=== PATIENT | female | born 1965 | race Caucasian/White ===

== ENCOUNTER 2017-02-28 11:56 | Inpatient (IN) | payer SELFPAY ==
[2017-02-28] VITALS (12 sets, daily range): BP systolic 102–138; BP diastolic 61–90
[~2017-02-28] VITALS: Ht 160 cm; Wt 57.3 kg
[~2017-02-28 11:56] MED LIST: ALBU2.5V14 NEB; ALBU8.5H6 INH; ALPR1TAB6 PO; CYAN1TAB21 PO; FERR325T72 PO; FLUT1DIS3 IH; HYDR-2762 PO; IPRA4AER IH; LISI-334 PO; LORA2TAB PO; PANT40TA3 PO; PANT40TA5 PO; PROP20TA PO; SUCR1TAB35 PO; TRAM50TA PO
[2017-02-28] MEDS ORDERED: IV NORMAL SALINE 1000ML BAG 1,000 ML IV SCH (12:00)
[2017-02-28] MEDS ORDERED: EPINEPHrine 1 MG/ML VIAL IM ONE (12:00)
[2017-02-28] MEDS ORDERED: methylPREDNISolone SOD SUCC PF 125 MG/2 ML VIAL. IV ONE (12:15)
[2017-02-28] MEDS ORDERED: diphenhydrAMINE 50 MG/ML VIAL IV ONE (12:15)
[2017-02-28] MEDS ORDERED: FAMOTIDINE 20 MG/2 ML VIAL IVP ONE (12:15)
[2017-02-28] MEDS ORDERED: IPRATRPIUM/ALBUTEROL 0.5/2.5MG 3 ML NEBU. ONE (12:34)
--- NOTE | 2017-02-28 12:37 | EKG ---
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
--- NOTE | 2017-02-28 12:50 | PHYS DOC ---
Past Medical History Past Medical History: Anxiety, Asthma, Gallstones, GERD, Hypertension, Pancreatitis Past Surgical History: Colectomy, Additional Past Surgical Histo: Ablation Alcohol Use: Heavy Drug Use: None Adult General Chief Complaint Chief Complaint: ALLERGIC REACTION HPI HPI 89-year-old female presenting to the emergency department today with worsening shortness of breath after taking her 's Bactrim last night at 5 PM and again this morning at 7 AM. This morning she woke up and noticed that she had swelling and a rash around her neck and chest. She feels a chest pain that is sharp shooting pain. It is nonradiating intermittent and without alleviating factors. She denies abdominal pain nausea or vomiting. Review of systems is negative for fevers chills cough vision changes numbness weakness tingling diarrhea or constipation. All other review of systems is negative unless otherwise noted in history of present illness. ED course: 51-year-old female presenting to the emergency department today with worsening shortness of breath and rash after Bactrim. Patient was immediately roomed in our resuscitation bay and given intramuscular epinephrine along with IV steroids and histamine blockade. Pertinent physical exam findings show palpable subcutaneous emphysema with Alejandro's crunch on pressing the stethoscope into. Chest x-ray obtained which shows severe diffuse subcutaneous emphysema. I'm having a difficult time assessing the presence of a pneumothorax due to the obscuring subcutaneous emphysema. I discussed the case with our in- house radiologist at 1245 who agrees with the difficulty in interpreting this x- ray. The patient is saturating well and improved from the epinephrine. The patient appears to be stable to obtain a CT to identify the origin of this subcutaneous emphysema. The patient was placed on a nonrebreather after subcutaneous emphysema was noted. more for tx of presumed ptx than oxygen requirement. CT of the chest abdomen pelvis obtained which showed small bilateral pneumothoraces without obvious etiology with rib fracture on the left with pneumomediastinum. CT of the chest abdomen pelvis does not seem to indicate any acute surgical etiology of the patient's subcutaneous emphysema. I discussed the case with Dr. Cadena our film editor, Dr. Gutierrez our cardiothoracic surgeon and Dr. Omer our admitting hospitalist. Otherwise the patient a mildly hemolyzed specimen which showed a minimal increase in potassium likely her actual potassium is within normal limits given the hemolyzed speciman. Magnesium low. I ordered IV magnesium for the patient. He was then admitted to our ICU for further evaluation workup and care. Review of Systems Review of Systems SEE ABOVE. Current Medications Current Medications Current Medications Medications (Trade) Dose Ordered Sig/Servando Start Time Stop Time Status Last Admin Dose Admin Albuterol/ Ipratropium (Duoneb) 3 ml STK-MED ONCE 02/28/17 12:34 02/28/17 12:35 DC Diphenhydramine HCl (Benadryl) 50 mg 1X ONCE 02/28/17 12:15 02/28/17 12:16 DC 02/28/17 12:07 50 MG Epinephrine HCl (Adrenalin) 0.5 mg 1X ONCE 02/28/17 12:00 02/28/17 12:04 DC 02/28/17 12:03 0.5 MG Famotidine (Pepcid Vial) 20 mg 1X ONCE 02/28/17 12:15 02/28/17 12:16 DC 02/28/17 12:11 20 MG Methylprednisolone Sodium Succinate (SOLU-Medrol 125MG VIAL) 125 mg 1X ONCE 02/28/17 12:15 02/28/17 12:16 DC 02/28/17 12:08 125 MG Sodium Chloride 1,000 ml @ 1,000 mls/hr Q1H 02/28/17 12:00 02/28/17 12:59 DC 02/28/17 12:06 1,000 MLS/HR Allergies Allergies Allergies Coded Allergies Type Severity Reaction Last Updated Verified Monoamine Oxidase Inhibitors Allergy Severe Anaphylaxis 08/20/15 Yes Tricyclic Compounds Allergy Severe Anaphylaxis 08/20/15 Yes bupropion Allergy Severe Anaphylaxis 08/20/15 Yes paroxetine Allergy Severe Anaphylaxis 08/20/15 Yes sulfamethoxazole Allergy Severe Anaphylaxis 02/28/17 Yes trazodone Allergy Severe Anaphylaxis 08/20/15 Yes trimethoprim Allergy Severe Anaphylaxis 02/28/17 Yes venlafaxine HCl Allergy Severe Anaphylaxis 08/20/15 Yes Physical Exam Physical Exam SEE ABOVE Constitutional: Well developed, well nourished, pt has swollen face with a rash on the neck and chest that is uticarial in nature. HENT: Normocephalic, atraumatic, bilateral external ears normal, oropharynx moist, no oral exudates, nose normal. [] Eyes: PERRLA, EOMI, conjunctiva normal, no discharge. [] Neck: Normal range of motion, no tenderness, supple, no stridor. Cardiovascular:Heart rate regular rhythm, no murmur [] Lungs & Thorax: Patient has diffuse wheezing bilaterally with prolonged expiratory phase. Positive Alejandro's crunch. Diffuse subcutaneous emphysema palpable upon palpation of the chest wall. Abdomen: Bowel sounds normal, soft, no tenderness, no masses, no pulsatile masses. [] Skin: Warm, dry, no erythema, no rash. Back: No tenderness, no CVA tenderness. [] Extremities: No tenderness, no cyanosis, no clubbing, ROM intact, no edema. [] Neurologic: Alert and oriented X 3, normal motor function, normal sensory function, no focal deficits noted. Psychologic: Affect normal, judgement normal, mood normal. [] Current Patient Data Vital Signs Vital Signs Date Time Temp Pulse Resp B/P (MAP) Pulse Ox O2 Delivery O2 Flow Rate FiO2 02/28/17 13:37 70 16 143/70 (94) 100 02/28/17 12:43 Nasal Cannula 15.0 02/28/17 12:00 98.5 98.5 Lab Values Laboratory Tests Test 02/28/17 12:47 02/28/17 13:40 White Blood Count 10.6 x10^3/uL (4.0-11.0) Red Blood Count 3.91 x10^6/uL (3.50-5.40) Hemoglobin 13.3 g/dL (12.0-15.5) Hematocrit 40.5 % (36.0-47.0) Mean Corpuscular Volume 104 fL (79-100) H Mean Corpuscular Hemoglobin 34 pg (25-35) Mean Corpuscular Hemoglobin Concent 33 g/dL (31-37) Red Cell Distribution Width 16.1 % (11.5-14.5) H Platelet Count 237 x10^3/uL (140-400) Neutrophils (%) (Auto) 38 % (31-73) Lymphocytes (%) (Auto) 56 % (24-48) H Monocytes (%) (Auto) 4 % (0-9) Eosinophils (%) (Auto) 0 % (0-3) Basophils (%) (Auto) 2 % (0-3) Neutrophils # (Auto) 4.0 x10^3uL (1.8-7.7) Lymphocytes # (Auto) 6.0 x10^3/uL (1.0-4.8) H Monocytes # (Auto) 0.4 x10^3/uL (0.0-1.1) Eosinophils # (Auto) 0.0 x10^3/uL (0.0-0.7) Basophils # (Auto) 0.2 x10^3/uL (0.0-0.2) Sodium Level 127 mmol/L (136-145) L Potassium Level mmol/L (3.5-5.1) 5.1 mmol/L (3.5-5.1) Chloride Level 92 mmol/L (98-107) L Carbon Dioxide Level 22 mmol/L (21-32) Anion Gap 13 (6-14) Blood Urea Nitrogen 11 mg/dL (7-20) Creatinine 0.5 mg/dL (0.6-1.0) L Estimated GFR (Cockcroft-Gault) 131.1 Glucose Level 168 mg/dL (70-99) H Calcium Level 8.2 mg/dL (8.5-10.1) L Total Bilirubin 3.0 mg/dL (0.2-1.0) H Direct Bilirubin 0.8 mg/dL (0.0-0.2) H Aspartate Amino Transferase (AST) 217 U/L (15-37) H Alanine Aminotransferase (ALT) 100 U/L (14-59) H Alkaline Phosphatase 308 U/L (46-116) H Troponin I Quantitative < 0.017 ng/mL (0.000-0.055) Total Protein 7.0 g/dL (6.4-8.2) Albumin 3.0 g/dL (3.4-5.0) L Lipase 14 U/L (73-393) L Magnesium Level 1.3 mg/dL (1.8-2.4) L Laboratory Tests 02/28/17 12:47 Laboratory Tests 02/28/17 12:47 02/28/17 13:40 EKG EKG [] Radiology/Procedures Radiology/Procedures [] Course & Med Decision Making Course & Med Decision Making Pertinent Labs and Imaging studies reviewed. (See chart for details) [] Dragon Disclaimer Dragon Disclaimer This electronic medical record was generated, in whole or in part, using a voice recognition dictation system. Departure Departure Impression: Primary Impression: Pneumothorax Additional Impressions: Subcutaneous emphysema Anaphylactic reaction Disposition: ADMITTED INPATIENT Condition: IMPROVED Referrals: RAJAN REDD MD (PCP) Critical Care Time Critical care time was [45] minutes exclusive of procedures. Time was spent evaluating the patient, reviewing x-ray, reviewing lab work, ordering the administration of medications, discussing with the admitting provider and documenting. Problem Qualifiers PETE GODDARD MD Feb 28, 2017 12:50
--- NOTE | 2017-02-28 12:51 | RAD ---
EXAM: Chest, single view. HISTORY: Chest pain. COMPARISON: 08/23/2015. FINDINGS: A frontal view of the chest is obtained. There is extensive soft tissue emphysema throughout the chest, upper extremities and neck. There is lucency at the bilateral lung apices suggesting small pneumothoraces. There is also lucency along the mediastinal border may be due to pneumomediastinum. There is left perihilar opacity possibly due to partial left lung collapse. The heart is normal in size. IMPRESSION: 1. Extensive soft tissue emphysema throughout the thorax, upper extremities and neck. This is of uncertain etiology. CT may be useful for characterization. 2. Suggestion of tiny bilateral apical pneumothoraces and pneumomediastinum. 3. Left perihilar opacity possibly due to partial left lung collapse. There is no significant left hemithorax volume loss. These findings were discussed with Dr. Jarvis at 1245 hours on 02/28/2017.
[2017-02-28 12:59] LABS: BASO # 0.2 x10^3/uL (0.0-0.2); BASO % 2 % (0-3); EOS % 0 % (0-3); HEMATOCRIT 40.5 % (36.0-47.0); LYMPH % 56 % (24-48); MEAN CORPUSCULAR VOLUME 104 fL (79-100); MONO % 4 % (0-9); NEUT % 38 % (31-73); PLATELET COUNT 237 x10^3/uL (140-400); RED BLOOD COUNT 3.91 x10^6/uL (3.50-5.40); RED CELL DISTRIBUTION WIDTH 16.1 % (11.5-14.5); WHITE BLOOD COUNT 10.6 x10^3/uL (4.0-11.0)
[2017-02-28 13:24] LABS: ANION GAP 13 (6-14); BLOOD UREA NITROGEN 11 mg/dL (7-20); CARBON DIOXIDE 22 mmol/L (21-32); DIRECT BILIRUBIN 0.8 mg/dL (0.0-0.2); GFR 131.1
--- NOTE | 2017-02-28 13:27 | RAD ---
EXAM: Chest, abdomen and pelvis CT without intravenous contrast. HISTORY: Soft tissue emphysema. TECHNIQUE: Computed tomographic images of the chest, abdomen and pelvis were obtained without intravenous contrast. Multiplanar reformatting was performed. COMPARISON: 08/23/2015. FINDINGS: Chest: There is severe extensive soft tissue emphysema throughout the thorax and visualized portions of the neck and abdominal wall. There is extensive pneumomediastinum. There are tiny right and small left pneumothoraces. There is lingular and left paramediastinal partial upper lobe collapse. The heart is normal in size. No pathologically enlarged lymph node is seen. There is no pleural effusion. There is a minimally displaced lateral left fifth rib fracture. There are healing or healed left eighth and 10th rib fractures there is increased thoracic kyphosis and a minimal chronic appearing compression deformity of T8. Abdomen and pelvis: There is severe extensive soft tissue emphysema throughout the abdominal wall. There is hepatic steatosis. No focal hepatic lesion is seen. The gallbladder, pancreas, spleen, adrenal glands and kidneys are unremarkable. The urinary bladder is distended. There is evidence of prior partial bowel resection, with a surgical anastomosis within the left midabdomen. There is a prominent air and fluid-filled loop of small bowel within the upper mid abdomen extending to the level of the anastomosis. The uterus is enlarged and lobulated in configuration, likely due to multiple fibroids. There are bilateral ovarian cysts, measuring approximately 2.0 cm on the right and 1.9 cm on the left. There is lumbar hyperlordosis. No suspicious osseous lesion is seen. IMPRESSION: 1. Severe extensive soft tissue emphysema throughout the neck, chest and abdominal adair. 2. Tiny right and small left pneumothoraces and extensive pneumomediastinum. 3. Partial left upper lobe collapse. Follow-up to exclude a central obstructing lesion. 4. Hepatic steatosis. 5. Enlarged lobulated uterus likely due to fibroids. This can be better assessed with a pelvic sonogram. 6. Prominent air and fluid-filled proximal small bowel extending to a surgical anastomosis within the left upper abdomen. The possibility of a low grade obstruction is not completely excluded. There is no pneumatosis or pneumoperitoneum. 7. Minimally displaced lateral left fifth rib fracture and additional healing or healed rib fractures. PQRS Compliance Statement: One or more of the following individualized dose reduction techniques were utilized for this examination: 1. Automated exposure control 2. Adjustment of the mA and/or kV according to patient size 3. Use of iterative reconstruction technique
[2017-02-28 13:51] LABS: ALT (SGPT) 100 U/L (14-59); AST (SGOT) 217 U/L (15-37); CALCIUM 8.2 mg/dL (8.5-10.1)
[2017-02-28 13:52] LABS: CHLORIDE 92 mmol/L (98-107); CREATININE 0.5 mg/dL (0.6-1.0); GLUCOSE 168 mg/dL (70-99); HEMOGLOBIN 13.3 g/dL (12.0-15.5); MEAN CORPUSCULAR HEMOGLOBIN 34 pg (25-35); MEAN CORPUSCULAR HGB CONC 33 g/dL (31-37); SODIUM 127 mmol/L (136-145)
[2017-02-28 13:56] LABS: ALK PHOS 308 U/L (46-116)
[2017-02-28] MEDS ORDERED: MORPHINE SULFATE 2 MG/ML DISP.SYRIN. IV PRN (14:15)
[2017-02-28] MEDS ORDERED: ONDANSETRON PF 4 MG/2 ML VIAL. IV PRN ×2 (14:15→15:00)
[2017-02-28] MEDS ORDERED: MAGNESIUM SULFATE 2GM 50 ML IV ONE (15:00)
[2017-02-28] MEDS: IV NORMAL SALINE 1000ML BAG 1,000 ML IV SCH (15:00)
[2017-02-28] MEDS ORDERED: ACETAMINOPHEN 500 MG TABLET PO PRN (15:00)
[2017-02-28] MEDS: LISINOPRIL 20 MG TABLET PO SCH (15:30)
[2017-02-28] MEDS: PROPRANOLOL 10 MG TABLET. PO SCH ×2 (15:30→20:35)
[2017-02-28] MEDS ORDERED: IOHEXOL 300 MG/ML 50 ML VIAL. PO ONE (16:00)
[2017-02-28] MEDS ORDERED: CONTRAST GIVEN MC PRN (16:00)
--- NOTE | 2017-02-28 16:36 | RAD ---
EXAM: Water-soluble esophagram. HISTORY: Pneumomediastinum and extensive soft tissue emphysema. Clinical concern for esophageal tear. TECHNIQUE: Fluoroscopic imaging was performed in multiple positions and oblique of the sternum the oral administration of water-soluble contrast. 6 fluoroscopic spot images were obtained for a total procedure time of 0.6 minutes. COMPARISON: CT obtained earlier on the same date. FINDINGS: There is normal swallowing function, without evidence of aspiration or penetration. The esophagus is normal in caliber. No esophageal mucosal lesion is seen. There is no extravasation of contrast to suggest esophageal rupture. There is no diverticulum. There is no hiatal hernia. The stomach and proximal small bowel are unremarkable. There is extensive soft tissue emphysema throughout the chest, upper abdomen and neck and upper extremities. There is pneumomediastinum. There is partial collapse of the left upper lobe. There are tiny right and small left pneumothoraces. There is a minimally displaced left lateral fifth rib fracture. IMPRESSION: 1. No evidence of esophageal tear or alternative esophageal finding. 2. Extensive soft tissue gas, pneumomediastinum, and tiny right and small left pneumothoraces. This is further characterized on the CT obtained on the same date. 3. Minimally displaced lateral left fifth rib fracture.
--- NOTE | 2017-02-28 16:46 | PDOC ---
PULMONARY PROGRESS NOTES Vitals Vital Signs Date Time Temp Pulse Resp B/P (MAP) Pulse Ox O2 Delivery O2 Flow Rate FiO2 02/28/17 14:37 72 16 113/70 (84) 100 NonRebreather Mask 15.0 02/28/17 12:00 98.5 98.5 Lungs: Wheezing Cardiovascular: S1, S2 Labs Laboratory Tests Test 02/28/17 12:47 02/28/17 13:40 White Blood Count 10.6 x10^3/uL (4.0-11.0) Red Blood Count 3.91 x10^6/uL (3.50-5.40) Hemoglobin 13.3 g/dL (12.0-15.5) Hematocrit 40.5 % (36.0-47.0) Mean Corpuscular Volume 104 fL (79-100) Mean Corpuscular Hemoglobin 34 pg (25-35) Mean Corpuscular Hemoglobin Concent 33 g/dL (31-37) Red Cell Distribution Width 16.1 % (11.5-14.5) Platelet Count 237 x10^3/uL (140-400) Neutrophils (%) (Auto) 38 % (31-73) Lymphocytes (%) (Auto) 56 % (24-48) Monocytes (%) (Auto) 4 % (0-9) Eosinophils (%) (Auto) 0 % (0-3) Basophils (%) (Auto) 2 % (0-3) Neutrophils # (Auto) 4.0 x10^3uL (1.8-7.7) Lymphocytes # (Auto) 6.0 x10^3/uL (1.0-4.8) Monocytes # (Auto) 0.4 x10^3/uL (0.0-1.1) Eosinophils # (Auto) 0.0 x10^3/uL (0.0-0.7) Basophils # (Auto) 0.2 x10^3/uL (0.0-0.2) Sodium Level 127 mmol/L (136-145) Potassium Level mmol/L (3.5-5.1) 5.1 mmol/L (3.5-5.1) Chloride Level 92 mmol/L (98-107) Carbon Dioxide Level 22 mmol/L (21-32) Anion Gap 13 (6-14) Blood Urea Nitrogen 11 mg/dL (7-20) Creatinine 0.5 mg/dL (0.6-1.0) Estimated GFR (Cockcroft-Gault) 131.1 Glucose Level 168 mg/dL (70-99) Calcium Level 8.2 mg/dL (8.5-10.1) Total Bilirubin 3.0 mg/dL (0.2-1.0) Direct Bilirubin 0.8 mg/dL (0.0-0.2) Aspartate Amino Transf (AST/SGOT) 217 U/L (15-37) Alanine Aminotransferase (ALT/SGPT) 100 U/L (14-59) Alkaline Phosphatase 308 U/L (46-116) Troponin I Quantitative < 0.017 ng/mL (0.000-0.055) Total Protein 7.0 g/dL (6.4-8.2) Albumin 3.0 g/dL (3.4-5.0) Lipase 14 U/L (73-393) Magnesium Level 1.3 mg/dL (1.8-2.4) Laboratory Tests Test 02/28/17 12:47 02/28/17 13:40 White Blood Count 10.6 x10^3/uL (4.0-11.0) Red Blood Count 3.91 x10^6/uL (3.50-5.40) Hemoglobin 13.3 g/dL (12.0-15.5) Hematocrit 40.5 % (36.0-47.0) Mean Corpuscular Volume 104 fL (79-100) Mean Corpuscular Hemoglobin 34 pg (25-35) Mean Corpuscular Hemoglobin Concent 33 g/dL (31-37) Red Cell Distribution Width 16.1 % (11.5-14.5) Platelet Count 237 x10^3/uL (140-400) Neutrophils (%) (Auto) 38 % (31-73) Lymphocytes (%) (Auto) 56 % (24-48) Monocytes (%) (Auto) 4 % (0-9) Eosinophils (%) (Auto) 0 % (0-3) Basophils (%) (Auto) 2 % (0-3) Neutrophils # (Auto) 4.0 x10^3uL (1.8-7.7) Lymphocytes # (Auto) 6.0 x10^3/uL (1.0-4.8) Monocytes # (Auto) 0.4 x10^3/uL (0.0-1.1) Eosinophils # (Auto) 0.0 x10^3/uL (0.0-0.7) Basophils # (Auto) 0.2 x10^3/uL (0.0-0.2) Sodium Level 127 mmol/L (136-145) Potassium Level mmol/L (3.5-5.1) 5.1 mmol/L (3.5-5.1) Chloride Level 92 mmol/L (98-107) Carbon Dioxide Level 22 mmol/L (21-32) Anion Gap 13 (6-14) Blood Urea Nitrogen 11 mg/dL (7-20) Creatinine 0.5 mg/dL (0.6-1.0) Estimated GFR (Cockcroft-Gault) 131.1 Glucose Level 168 mg/dL (70-99) Calcium Level 8.2 mg/dL (8.5-10.1) Total Bilirubin 3.0 mg/dL (0.2-1.0) Direct Bilirubin 0.8 mg/dL (0.0-0.2) Aspartate Amino Transf (AST/SGOT) 217 U/L (15-37) Alanine Aminotransferase (ALT/SGPT) 100 U/L (14-59) Alkaline Phosphatase 308 U/L (46-116) Troponin I Quantitative < 0.017 ng/mL (0.000-0.055) Total Protein 7.0 g/dL (6.4-8.2) Albumin 3.0 g/dL (3.4-5.0) Lipase 14 U/L (73-393) Magnesium Level 1.3 mg/dL (1.8-2.4) Medications Active Scripts Medications Dose Route/Sig Max Daily Dose Days Date Category Dose Instructions Pantoprazole Sodium 40 Mg Tablet.dr 40 Mg PO BIDAC 08/25/15 Rx Feosol (Ferrous Sulfate) 325 Mg Tablet 325 Mg PO [id number] 08/25/15 Rx Carafate (Sucralfate) 1 Gm Tablet 1 Tab PO QID 08/20/15 Rx Tramadol Hcl 50 Mg Tablet 50 Mg PO PRN Q6HRS PRN 07/03/15 Reported Lorazepam 2 Mg Tablet 2-4 Mg PO PRN BID PRN 07/03/15 Reported ALTERNATE WITH ALPRAZOLAM B Complex-Folic Acid Tablet (Cyanocobalamin/Fa/Pyridoxine) 1 Each Tablet 1 Each PO DAILY 04/05/15 Rx Alprazolam 1 Mg Tablet 1 Mg PO PRN BID PRN 05/01/13 Reported ALTERNATE WITH LORAZEPAM Propranolol Hcl 20 Mg Tablet 20 Mg PO TID 05/01/13 Reported Lisinopril 20 Mg Tablet 20 Mg PO DAILY 05/01/13 Reported Impression . FULL NOTE DICTATED ACUTE PTX SUSPECT SEC TO EMPHYSEMA AND COUGHING ABNORMAL CT OF CHEST WILL NEED A [facility] NPO [place] PNEUMOMEDIASTINUM SEE ORDERS D/W DR NEGRETE NO INTERVETION FOR NOW REGI JON MD Feb 28, 2017 16:46
--- NOTE | 2017-02-28 16:55 | PDOC1 ---
History and Physical Date of Admission Date of Admission DATE: 02/28/17 TIME: 16:45 Identification/Chief Complaint Chief Complaint face swelling and wheezy Problems: Source Source: Caregiver, Chart review, Patient History of Present Illness History of Present Illness 51 y.o obese female hx of signif etoh consumption, hx of past admits for pancreatitis, comes in bec of face swelling, more noticeable in the left eye and wheezy and SOA after taking bactrim form her 's meds for URI sxs. then noticed today the above CC hence brought to ER. AT ER received solu, epi IM etc for anaphylaxis but on further PE was found to have subQ tissue edema almost everywhere, So CXR done showed subQ emphysema in chest , neck ,face etc and some small 1-2 % apical pneumothoraces - all news to pt, She denies heavy smoking, HEmodynamically stable, sats ok, feels hungry and wants to eat, Pulmo and cards have been both consulted, conservative mx for now, ICU monitor and possibly daily CXR,. Dw ., and pt now admits to falling yesterday, hitting her left side and she has a bruise there, she was trying to get her dinner tray and was caught in between furniture, She has left rib fx 5th rib and some old healed rib fxs which she was not aware of, She does admit to falls in past, Past Medical History Cardiovascular: HTN Pulmonary: Asthma Psych: Anxiety, Addictions Past Surgical History Past Surgical History: , Colon Resection, Other Family History Family History: Asthma, Cancer, Hypertension, Other Social History Smoke: <1 pack per day ALCOHOL: heavy Drugs: None Current Medications Current Medications Current Medications Methylprednisolone Sodium Succinate (SOLU-Medrol 125MG VIAL) 125 mg 1X ONCE IV Last administered on 02/28/17 12:08; Start 02/28/17 at 12:15; Stop at 12:16; Status DC Diphenhydramine HCl (Benadryl) 50 mg 1X ONCE IV Last administered on 12:07; Start 02/28/17 at 12:15; Stop 02/28/17 at 12:16; Status DC Famotidine (Pepcid Vial) 20 mg 1X ONCE IVP Last administered on 02/28/17 12: 11; Start 02/28/17 at 12:15; Stop 02/28/17 at 12:16; Status DC Epinephrine HCl (Adrenalin) 0.5 mg 1X ONCE IM Last administered on 02/28/17 12:03; Start 02/28/17 at 12:00; Stop 02/28/17 at 12:04; Status DC Sodium Chloride 1,000 ml @ 1,000 mls/hr Q1H IV Last administered on 12:06; Start 02/28/17 at 12:00; Stop 02/28/17 at 12:59; Status DC Albuterol/ Ipratropium (Duoneb) 3 ml STK-MED ONCE .ROUTE ; Start 02/28/17 at 12 :34; Stop 02/28/17 at 12:35; Status DC Ondansetron HCl (Zofran) 4 mg PRN Q8HRS PRN IV NAUSEA/VOMITING; Start at 14:15; Stop 02/28/17 at 15:01; Status DC Morphine Sulfate 2 mg PRN Q2HR PRN IV PAIN; Start 02/28/17 at 14:15; Stop at 14:14 Sodium Chloride 1,000 ml @ 100 mls/hr Q10H IV ; Start 02/28/17 at 15:00; Stop 03/01/17 at 14:59 Magnesium Sulfate/ Dextrose 50 ml @ 10 mls/hr 1X ONCE IV ; Start 02/28/17 at 15:00; Stop 02/28/17 at 19:59 Ondansetron HCl (Zofran) 4 mg PRN Q6HRS PRN IV NAUSEA/VOMITING; Start at 15:00; Stop 03/01/17 at 14:59 Acetaminophen (Tylenol) 500 mg PRN Q6HRS PRN PO MILD PAIN / TEMP; Start at 15:00 Alprazolam (Xanax) 1 mg PRN BID PRN PO ANXIETY; Start 02/28/17 at 15:00 Ferrous Sulfate (Feosol) 325 mg DAILYWBKFT PO ; Start 03/01/17 at 08:00 Lisinopril (Prinivil) 20 mg DAILY PO ; Start 02/28/17 at 15:30 Pantoprazole Sodium (Protonix) 40 mg BIDAC PO ; Start 02/28/17 at 16:30 Sucralfate (Carafate) 1 gm QIDACHS PO ; Start 02/28/17 at 16:30 Tramadol HCl (Ultram) 50 mg PRN Q6HRS PRN PO HEADACHE; Start 02/28/17 at 15:00 Vitamin B Complex (Tyrell B) 1 tab DAILY PO ; Start 03/01/17 at 09:00 Lorazepam (Ativan) 2 mg PRN BID PRN PO ANXIETY; Start 02/28/17 at 15:15 Propranolol HCl (Inderal) 20 mg TID PO ; Start 02/28/17 at 15:30 Iohexol (Omnipaque 300 Mg/ml) 100 ml 1X ONCE PO Last administered on t 16:19; Start 02/28/17 at 16:00; Stop 02/28/17 at 16:01; Status DC Info (Do NOT chart on this entry -- for MONITORING) 1 each PRN DAILY PRN MC SEE COMMENTS; Start 02/28/17 at 16:00; Stop 03/02/17 at 15:59 Methylprednisolone Sodium Succinate (SOLU-Medrol 125MG VIAL) 125 mg DAILY IV ; Start 03/01/17 at 09:00 Doxycycline Hyclate (Vibra-Tab) 100 mg BID PO ; Start 02/28/17 at 17:00 Active Scripts Active Pantoprazole Sodium 40 Mg Tablet.dr 40 Mg PO BIDAC Feosol (Ferrous Sulfate) 325 Mg Tablet 325 Mg PO DAILYWBKFT Carafate (Sucralfate) 1 Gm Tablet 1 Tab PO QID B Complex-Folic Acid Tablet (Cyanocobalamin/Fa/Pyridoxine) 1 Each Tablet 1 Each PO DAILY Reported Tramadol Hcl 50 Mg Tablet 50 Mg PO PRN Q6HRS PRN Lorazepam 2 Mg Tablet 2-4 Mg PO PRN BID PRN ALTERNATE WITH ALPRAZOLAM Alprazolam 1 Mg Tablet 1 Mg PO PRN BID PRN ALTERNATE WITH LORAZEPAM Propranolol Hcl 20 Mg Tablet 20 Mg PO TID Lisinopril 20 Mg Tablet 20 Mg PO DAILY Allergies Allergies: Coded Allergies: Monoamine Oxidase Inhibitors (Verified Allergy, Severe, Anaphylaxis, ) ALL ANTIDEPRESSANTS Tricyclic Compounds (Verified Allergy, Severe, Anaphylaxis, 08/20/15) ALL ANTIDEPRESSANTS bupropion (Verified Allergy, Severe, Anaphylaxis, 08/20/15) ALL ANTIDEPRESSANTS paroxetine (Verified Allergy, Severe, Anaphylaxis, 08/20/15) ALL ANTIDEPRESSANTS sulfamethoxazole (Verified Allergy, Severe, Anaphylaxis, 02/28/17) trazodone (Verified Allergy, Severe, Anaphylaxis, 08/20/15) ALL ANTIDEPRESSANTS trimethoprim (Verified Allergy, Severe, Anaphylaxis, 02/28/17) venlafaxine HCl (Verified Allergy, Severe, Anaphylaxis, 08/20/15) ALL ANTIDEPRESSANTS ROS Review of System as per HPI, all else is neg, SOme soa, CP,no abd pain, change in BM, 14 pt reviewed Physical Exam General: Alert, Oriented X3, Cooperative, Other (swollen left eye, sub Q emphysema palpable and appreciable on PE on anterior chest, neck , arms and hands, bruise on left side rib) HEENT: EOMI Lungs: Normal air movement, Other (no wheezes, normal air entry) Heart: S1S2, RRR, no thrills, no rubs Cardiovascular: S1, S2 Abdomen: Normal bowel sounds, Soft, No tenderness, No hepatosplenomegaly, No masses Rectal Exam: not examined PELVIC: Nml ext genitalia Extremities: Other (palpable subQ emphysema) Skin: No rashes, No breakdown, No significant lesion Neuro: Normal gait, Normal speech, Strength at 5/5 X4 ext, Normal tone, Sensation intact, Cranial nerves 3-12 NL, Reflexes 2+ Psych/Mental Status: Mental status NL, Mood NL Vitals Vitals Vital Signs Date Time Temp Pulse Resp B/P (MAP) Pulse Ox O2 Delivery O2 Flow Rate FiO2 02/28/17 14:37 72 16 113/70 (84) 100 NonRebreather Mask 15.0 02/28/17 12:00 98.5 98.5 Labs Labs Laboratory Tests Test 02/28/17 12:47 02/28/17 13:40 White Blood Count 10.6 x10^3/uL (4.0-11.0) Red Blood Count 3.91 x10^6/uL (3.50-5.40) Hemoglobin 13.3 g/dL (12.0-15.5) Hematocrit 40.5 % (36.0-47.0) Mean Corpuscular Volume 104 fL (79-100) Mean Corpuscular Hemoglobin 34 pg (25-35) Mean Corpuscular Hemoglobin Concent 33 g/dL (31-37) Red Cell Distribution Width 16.1 % (11.5-14.5) Platelet Count 237 x10^3/uL (140-400) Neutrophils (%) (Auto) 38 % (31-73) Lymphocytes (%) (Auto) 56 % (24-48) Monocytes (%) (Auto) 4 % (0-9) Eosinophils (%) (Auto) 0 % (0-3) Basophils (%) (Auto) 2 % (0-3) Neutrophils # (Auto) 4.0 x10^3uL (1.8-7.7) Lymphocytes # (Auto) 6.0 x10^3/uL (1.0-4.8) Monocytes # (Auto) 0.4 x10^3/uL (0.0-1.1) Eosinophils # (Auto) 0.0 x10^3/uL (0.0-0.7) Basophils # (Auto) 0.2 x10^3/uL (0.0-0.2) Sodium Level 127 mmol/L (136-145) Potassium Level mmol/L (3.5-5.1) 5.1 mmol/L (3.5-5.1) Chloride Level 92 mmol/L (98-107) Carbon Dioxide Level 22 mmol/L (21-32) Anion Gap 13 (6-14) Blood Urea Nitrogen 11 mg/dL (7-20) Creatinine 0.5 mg/dL (0.6-1.0) Estimated GFR (Cockcroft-Gault) 131.1 Glucose Level 168 mg/dL (70-99) Calcium Level 8.2 mg/dL (8.5-10.1) Total Bilirubin 3.0 mg/dL (0.2-1.0) Direct Bilirubin 0.8 mg/dL (0.0-0.2) Aspartate Amino Transf (AST/SGOT) 217 U/L (15-37) Alanine Aminotransferase (ALT/SGPT) 100 U/L (14-59) Alkaline Phosphatase 308 U/L (46-116) Troponin I Quantitative < 0.017 ng/mL (0.000-0.055) Total Protein 7.0 g/dL (6.4-8.2) Albumin 3.0 g/dL (3.4-5.0) Lipase 14 U/L (73-393) Magnesium Level 1.3 mg/dL (1.8-2.4) Laboratory Tests Test 02/28/17 12:47 02/28/17 13:40 White Blood Count 10.6 x10^3/uL (4.0-11.0) Red Blood Count 3.91 x10^6/uL (3.50-5.40) Hemoglobin 13.3 g/dL (12.0-15.5) Hematocrit 40.5 % (36.0-47.0) Mean Corpuscular Volume 104 fL (79-100) Mean Corpuscular Hemoglobin 34 pg (25-35) Mean Corpuscular Hemoglobin Concent 33 g/dL (31-37) Red Cell Distribution Width 16.1 % (11.5-14.5) Platelet Count 237 x10^3/uL (140-400) Neutrophils (%) (Auto) 38 % (31-73) Lymphocytes (%) (Auto) 56 % (24-48) Monocytes (%) (Auto) 4 % (0-9) Eosinophils (%) (Auto) 0 % (0-3) Basophils (%) (Auto) 2 % (0-3) Neutrophils # (Auto) 4.0 x10^3uL (1.8-7.7) Lymphocytes # (Auto) 6.0 x10^3/uL (1.0-4.8) Monocytes # (Auto) 0.4 x10^3/uL (0.0-1.1) Eosinophils # (Auto) 0.0 x10^3/uL (0.0-0.7) Basophils # (Auto) 0.2 x10^3/uL (0.0-0.2) Sodium Level 127 mmol/L (136-145) Potassium Level mmol/L (3.5-5.1) 5.1 mmol/L (3.5-5.1) Chloride Level 92 mmol/L (98-107) Carbon Dioxide Level 22 mmol/L (21-32) Anion Gap 13 (6-14) Blood Urea Nitrogen 11 mg/dL (7-20) Creatinine 0.5 mg/dL (0.6-1.0) Estimated GFR (Cockcroft-Gault) 131.1 Glucose Level 168 mg/dL (70-99) Calcium Level 8.2 mg/dL (8.5-10.1) Total Bilirubin 3.0 mg/dL (0.2-1.0) Direct Bilirubin 0.8 mg/dL (0.0-0.2) Aspartate Amino Transf (AST/SGOT) 217 U/L (15-37) Alanine Aminotransferase (ALT/SGPT) 100 U/L (14-59) Alkaline Phosphatase 308 U/L (46-116) Troponin I Quantitative < 0.017 ng/mL (0.000-0.055) Total Protein 7.0 g/dL (6.4-8.2) Albumin 3.0 g/dL (3.4-5.0) Lipase 14 U/L (73-393) Magnesium Level 1.3 mg/dL (1.8-2.4) VTE Prophylaxis Ordered VTE Prophylaxis Devices: Yes VTE Pharmacological Prophylaxi: Yes Assessment/Plan Assessment/Plan 1. SMall apical pneumothoraces, 1-2 % - conservative mx for now 2. LEft 5th rib fx, acute; old healed rib fxs 3. Fall 4. Obesity 5. SMOker, heavy drinker, hx of pancreatitis - lipase normal this admit, no abd pain 6. SUbQ emphysema neck, face, arms 7. HYponatremia - 127 8. Anaphylaxis likely to bactrim - list bactrtim as allergy pls PLAn: Admit ICU Pulmo and TCVS consult Ok for diet PT/OT when more stable O2 support CXR again for the PTx HIgh fall risk Await home meds CIWA NIcotine prn NS for hyponat Check meds, check TSH BMP tmr Seen in ER Dw ER NATHEN Chao dr, MD Feb 28, 2017 16:55
[2017-02-28] MEDS ORDERED: NICOTINE 21MG PATCH. TD PRN (17:00)
[2017-02-28] MEDS: DOXYCYCLINE HYCLATE 100 MG TABLET PO SCH (17:51)
[2017-02-28] MEDS: FOLIC ACID 1 MG TABLET. PO SCH (17:51)
[2017-02-28] MEDS: PRENATAL MULTIVITAMIN TABLET. PO SCH (17:51)
[2017-02-28] MEDS: THIAMINE 100 MG TABLET. PO SCH (17:51)
[2017-02-28] MEDS: PANTOPRAZOLE 40 MG TABLET.DR. PO SCH (17:51)
[2017-02-28] MEDS: SUCRALFATE 1 GM TABLET. PO SCH ×2 (17:51→20:35)
[2017-02-28] MEDS ORDERED: IPRATROPIUM BROMIDE 0.5 MG/2.5 ML NEBU. NEB PRN (19:15)
[2017-02-28] MEDS: IPRATROPIUM BROMIDE 0.5 MG/2.5 ML NEBU. NEB SCH ×2 (19:39→23:56)
[2017-02-28] MEDS: ALPRAZolam 1 MG TABLET PO PRN (20:36)
[2017-02-28] MEDS: traMADol 50 MG TABLET PO PRN (20:36)
[2017-02-28] MEDS: MORPHINE SULFATE 4 MG/ML DISP.SYRIN. IV PRN (23:21)
[2017-03-01] VITALS (24 sets, daily range): BP systolic 83–134; BP diastolic 56–85
--- NOTE | 2017-03-01 02:43 | CONS ---
DATE OF CONSULTATION: 02/28/2017 ATTENDING PHYSICIAN: Dr. Omer REASON FOR CONSULTATION: The patient is seen in pulmonary consultation at the request of Dr. Omer for pneumomediastinum. HISTORY OF PRESENT ILLNESS: The patient is a 51-year-old that has been having some issues with increasing shortness of breath and cough. She presented today because she felt like she was having an allergic reaction. Her eyes were swollen and her face was swollen along with possible rash. The patient was evaluated in the Emergency Department and underwent physical examination, which revealed some subcutaneous emphysema. As a consequence of that, a chest x-ray was obtained in addition to the CT of the chest. CT revealed pneumomediastinum, significant subcutaneous emphysema and small pneumothoraces. I was asked to see the patient for further evaluation and management. The patient denies fever, chills or night sweats. She was taking some Bactrim at home for acute bronchitis. PAST MEDICAL HISTORY: 1. COPD undocumented, no history of asthma prior to smoking. He has been smoking for 30 years: 2. Anxiety. 3. Cholecystectomy 4. Chronic pancreatitis. 5. Hypertension. 5. Gastroesophageal reflux. PAST SURGICAL HISTORY: Status post colectomy and . SOCIAL HISTORY: She is a heavy alcohol user along with tobacco. PHYSICAL EXAMINATION: VITAL SIGNS: Stable. O2 saturation was greater than 92%. HEENT: Eyes, the left eye was almost completely shut from the subcutaneous emphysema. NECK: Otherwise, jugular venous distention could not be assessed. There was a large amount of subcutaneous emphysema. CHEST: Subcutaneous emphysema. LUNGS: Adequate airway flow, no wheezes. CARDIOVASCULAR: Regular rate and rhythm with S1, S2, no S3. ABDOMEN: Soft, nontender and nondistended. EXTREMITIES: No clubbing, cyanosis or pitting edema. NEUROLOGIC: The patient was awake, alert and following commands. A detailed neuro exam was not performed. LABORATORY DATA: Reviewed. IMAGING: CT of the chest was likewise reviewed. CT chest, abdomen and pelvis was reviewed. IMPRESSION: 1. Spontaneous pneumothoraces suspect secondary to forceful cough and Valsalva with possible underlying emphysema. 2. Left upper lobe collapse, possible central obstruction. 3. Severe extensive subcutaneous emphysema. 4. Pneumomediastinum. 5. Acute exacerbation of chronic obstructive pulmonary disease. 6. Paroxysmal coughing spells. 7. Hyponatremia. 8. Elevated liver chemistries secondary to alcoholism. 9. Mild to moderate protein deficiency, protein malnutrition. PLAN: 1. Case discussed with radiologist. We will proceed with esophagram with water soluble contrast to rule out the possibility of TE fistula. We will need bronchoscopy to assess the airways. 2. Case discussed with cardiothoracic surgeon for standby surgical intervention, at this point, the patient is stable and no surgical intervention is necessary. 3. Consult dietary. 4. Monitor liver chemistries. 5. The patient instructed on the importance of discontinuing tobacco use. 6. Nebulized treatments. 7. Antibiotics. 8. Solu-Medrol. I do appreciate the privilege in sharing in the patient's care. REGI JON MD DR: JONATHAN/briana JOB#: [id number] / [id number]
[2017-03-01] MEDS: MORPHINE SULFATE 4 MG/ML DISP.SYRIN. IV PRN ×2 (03:34→06:05)
[2017-03-01] MEDS: IV NORMAL SALINE 1000ML BAG 1,000 ML IV SCH ×2 (06:06→19:44)
[2017-03-01] MEDS: VITAMIN B COMPLEX TABLET. PO SCH (08:11)
[2017-03-01] MEDS: DOXYCYCLINE HYCLATE 100 MG TABLET PO SCH ×2 (08:11→22:18)
[2017-03-01] MEDS: PROPRANOLOL 10 MG TABLET. PO SCH ×3 (08:11→22:18)
[2017-03-01] MEDS: FERROUS SULFATE 325 MG TABLET. PO SCH (08:12)
[2017-03-01] MEDS: FOLIC ACID 1 MG TABLET. PO SCH (08:12)
[2017-03-01] MEDS: LISINOPRIL 20 MG TABLET PO SCH (08:12)
[2017-03-01] MEDS: PANTOPRAZOLE 40 MG TABLET.DR. PO SCH ×2 (08:12→17:31)
[2017-03-01] MEDS: THIAMINE 100 MG TABLET. PO SCH (08:12)
[2017-03-01] MEDS: SUCRALFATE 1 GM TABLET. PO SCH ×4 (08:13→22:17)
[2017-03-01] MEDS: LORazepam 1 MG TABLET PO PRN (08:13)
[2017-03-01] MEDS: PRENATAL MULTIVITAMIN TABLET. PO SCH (08:13)
[2017-03-01 08:18] LABS: BASO # 0.1 x10^3/uL (0.0-0.2); BASO % 2 % (0-3); EOS % 1 % (0-3); HEMOGLOBIN 12.5 g/dL (12.0-15.5); LYMPH # 3.1 x10^3/uL (1.0-4.8); MEAN CORPUSCULAR HEMOGLOBIN 35 pg (25-35); MEAN CORPUSCULAR HGB CONC 34 g/dL (31-37); MEAN CORPUSCULAR VOLUME 103 fL (79-100); PLATELET COUNT 86 x10^3/uL (140-400); RED CELL DISTRIBUTION WIDTH 15.8 % (11.5-14.5); WHITE BLOOD COUNT 6.5 x10^3/uL (4.0-11.0)
[2017-03-01 08:25] LABS: CALCIUM 8.2 mg/dL (8.5-10.1); CREATININE 0.5 mg/dL (0.6-1.0); GFR 131.1; POTASSIUM 3.6 mmol/L (3.5-5.1)
[2017-03-01] MEDS ORDERED: methylPREDNISolone SOD SUCC PF 125 MG/2 ML VIAL. IV SCH ×2 (09:00→21:00)
[2017-03-01] MEDS ORDERED: BUDESONIDE 0.5 MG/2 ML NEBU. NEB ONE (09:30)
[2017-03-01] MEDS ORDERED: fentaNYL PF VIAL 100 MCG/2 ML VIAL IV PRN (09:45)
[2017-03-01] MEDS ORDERED: diphenhydrAMINE 50 MG/ML VIAL IVP ONE (09:45)
[2017-03-01] MEDS ORDERED: diphenhydrAMINE 50 MG/ML VIAL IVP PRN (09:45)
--- NOTE | 2017-03-01 09:47 | PDOC ---
PROGRESS NOTES Chief Complaint Chief Complaint angioedema, acute facial swelling, allergic reaction Small apical pneumothoraces, 1-2 % - conservative mx for now Left 5th rib fx, acute; s/p fall Obesity tobacco use disorder edema of neck, face, arms Hyponatremia - 127 Anaphylaxis likely to bactrim - transaminitis, check hep panel in AM History of Present Illness History of Present Illness Admitted ICU, able to swallow, tongue is small, face is markedly swollen Pulmo and TCVS consult Ok for diet PT/OT unable, she cannot see today t CIWA prn Nicotine prn Vitals Vitals Vital Signs Date Time Temp Pulse Resp B/P (MAP) Pulse Ox O2 Delivery O2 Flow Rate FiO2 03/01/17 08:24 93 Room Air 03/01/17 08:12 76 110/76 03/01/17 06:38 16 03/01/17 04:00 98.3 98.3 03/01/17 02:00 2.0 Physical Exam General: Alert, Oriented X3, Cooperative, mild distress (pain, swelling), Other (swollen left eye, sub Q emphysema palpable and appreciable on PE on anterior chest, neck , arms and hands, bruise on left side rib) Heart: Regular rate, No murmurs Lungs: Wheezing Abdomen: Normal bowel sounds, Soft, No tenderness, No hepatosplenomegaly, No masses Extremities: Other (palpable subQ emphysema) Skin: No rashes, No breakdown, No significant lesion Labs LABS Laboratory Tests Test 02/28/17 12:47 02/28/17 13:40 03/01/17 07:11 White Blood Count 10.6 x10^3/uL (4.0-11.0) Red Blood Count 3.91 x10^6/uL (3.50-5.40) Hemoglobin 13.3 g/dL (12.0-15.5) Hematocrit 40.5 % (36.0-47.0) Mean Corpuscular Volume 104 fL (79-100) Mean Corpuscular Hemoglobin 34 pg (25-35) Mean Corpuscular Hemoglobin Concent 33 g/dL (31-37) Red Cell Distribution Width 16.1 % (11.5-14.5) Platelet Count 237 x10^3/uL (140-400) Neutrophils (%) (Auto) 38 % (31-73) Lymphocytes (%) (Auto) 56 % (24-48) Monocytes (%) (Auto) 4 % (0-9) Eosinophils (%) (Auto) 0 % (0-3) Basophils (%) (Auto) 2 % (0-3) Neutrophils # (Auto) 4.0 x10^3uL (1.8-7.7) Lymphocytes # (Auto) 6.0 x10^3/uL (1.0-4.8) Monocytes # (Auto) 0.4 x10^3/uL (0.0-1.1) Eosinophils # (Auto) 0.0 x10^3/uL (0.0-0.7) Basophils # (Auto) 0.2 x10^3/uL (0.0-0.2) Sodium Level 127 mmol/L (136-145) 138 mmol/L (136-145) Potassium Level mmol/L (3.5-5.1) 5.1 mmol/L (3.5-5.1) 3.6 mmol/L (3.5-5.1) Chloride Level 92 mmol/L (98-107) 103 mmol/L (98-107) Carbon Dioxide Level 22 mmol/L (21-32) 26 mmol/L (21-32) Anion Gap 13 (6-14) 9 (6-14) Blood Urea Nitrogen 11 mg/dL (7-20) 6 mg/dL (7-20) Creatinine 0.5 mg/dL (0.6-1.0) 0.5 mg/dL (0.6-1.0) Estimated GFR (Cockcroft-Gault) 131.1 131.1 Glucose Level 168 mg/dL (70-99) 165 mg/dL (70-99) Calcium Level 8.2 mg/dL (8.5-10.1) 8.2 mg/dL (8.5-10.1) Total Bilirubin 3.0 mg/dL (0.2-1.0) Direct Bilirubin 0.8 mg/dL (0.0-0.2) Aspartate Amino Transf (AST/SGOT) 217 U/L (15-37) Alanine Aminotransferase (ALT/SGPT) 100 U/L (14-59) Alkaline Phosphatase 308 U/L (46-116) Troponin I Quantitative < 0.017 ng/mL (0.000-0.055) Total Protein 7.0 g/dL (6.4-8.2) Albumin 3.0 g/dL (3.4-5.0) Lipase 14 U/L (73-393) Magnesium Level 1.3 mg/dL (1.8-2.4) Thyroid Stimulating Hormone (TSH) 6.113 uIU/mL (0.358-3.74) Review of Systems Review of Systems arm pain, back pain, face pain cannot see, eyes are too swollen Assessment and Plan Assessmemt and Plan Problems Medical Problems: (1) Anaphylactic reaction Status: Acute (2) Subcutaneous emphysema Status: Acute Problems: Comment Review of Relevant I have reviewed the following items yu (where applicable) has been applied. Labs Laboratory Tests Test 02/28/17 12:47 02/28/17 13:40 03/01/17 07:11 White Blood Count 10.6 x10^3/uL (4.0-11.0) Red Blood Count 3.91 x10^6/uL (3.50-5.40) Hemoglobin 13.3 g/dL (12.0-15.5) Hematocrit 40.5 % (36.0-47.0) Mean Corpuscular Volume 104 fL (79-100) Mean Corpuscular Hemoglobin 34 pg (25-35) Mean Corpuscular Hemoglobin Concent 33 g/dL (31-37) Red Cell Distribution Width 16.1 % (11.5-14.5) Platelet Count 237 x10^3/uL (140-400) Neutrophils (%) (Auto) 38 % (31-73) Lymphocytes (%) (Auto) 56 % (24-48) Monocytes (%) (Auto) 4 % (0-9) Eosinophils (%) (Auto) 0 % (0-3) Basophils (%) (Auto) 2 % (0-3) Neutrophils # (Auto) 4.0 x10^3uL (1.8-7.7) Lymphocytes # (Auto) 6.0 x10^3/uL (1.0-4.8) Monocytes # (Auto) 0.4 x10^3/uL (0.0-1.1) Eosinophils # (Auto) 0.0 x10^3/uL (0.0-0.7) Basophils # (Auto) 0.2 x10^3/uL (0.0-0.2) Sodium Level 127 mmol/L (136-145) 138 mmol/L (136-145) Potassium Level mmol/L (3.5-5.1) 5.1 mmol/L (3.5-5.1) 3.6 mmol/L (3.5-5.1) Chloride Level 92 mmol/L (98-107) 103 mmol/L (98-107) Carbon Dioxide Level 22 mmol/L (21-32) 26 mmol/L (21-32) Anion Gap 13 (6-14) 9 (6-14) Blood Urea Nitrogen 11 mg/dL (7-20) 6 mg/dL (7-20) Creatinine 0.5 mg/dL (0.6-1.0) 0.5 mg/dL (0.6-1.0) Estimated GFR (Cockcroft-Gault) 131.1 131.1 Glucose Level 168 mg/dL (70-99) 165 mg/dL (70-99) Calcium Level 8.2 mg/dL (8.5-10.1) 8.2 mg/dL (8.5-10.1) Total Bilirubin 3.0 mg/dL (0.2-1.0) Direct Bilirubin 0.8 mg/dL (0.0-0.2) Aspartate Amino Transf (AST/SGOT) 217 U/L (15-37) Alanine Aminotransferase (ALT/SGPT) 100 U/L (14-59) Alkaline Phosphatase 308 U/L (46-116) Troponin I Quantitative < 0.017 ng/mL (0.000-0.055) Total Protein 7.0 g/dL (6.4-8.2) Albumin 3.0 g/dL (3.4-5.0) Lipase 14 U/L (73-393) Magnesium Level 1.3 mg/dL (1.8-2.4) Thyroid Stimulating Hormone (TSH) 6.113 uIU/mL (0.358-3.74) Laboratory Tests Test 02/28/17 12:47 02/28/17 13:40 03/01/17 07:11 White Blood Count 10.6 x10^3/uL (4.0-11.0) Red Blood Count 3.91 x10^6/uL (3.50-5.40) Hemoglobin 13.3 g/dL (12.0-15.5) Hematocrit 40.5 % (36.0-47.0) Mean Corpuscular Volume 104 fL (79-100) Mean Corpuscular Hemoglobin 34 pg (25-35) Mean Corpuscular Hemoglobin Concent 33 g/dL (31-37) Red Cell Distribution Width 16.1 % (11.5-14.5) Platelet Count 237 x10^3/uL (140-400) Neutrophils (%) (Auto) 38 % (31-73) Lymphocytes (%) (Auto) 56 % (24-48) Monocytes (%) (Auto) 4 % (0-9) Eosinophils (%) (Auto) 0 % (0-3) Basophils (%) (Auto) 2 % (0-3) Neutrophils # (Auto) 4.0 x10^3uL (1.8-7.7) Lymphocytes # (Auto) 6.0 x10^3/uL (1.0-4.8) Monocytes # (Auto) 0.4 x10^3/uL (0.0-1.1) Eosinophils # (Auto) 0.0 x10^3/uL (0.0-0.7) Basophils # (Auto) 0.2 x10^3/uL (0.0-0.2) Sodium Level 127 mmol/L (136-145) 138 mmol/L (136-145) Potassium Level mmol/L (3.5-5.1) 5.1 mmol/L (3.5-5.1) 3.6 mmol/L (3.5-5.1) Chloride Level 92 mmol/L (98-107) 103 mmol/L (98-107) Carbon Dioxide Level 22 mmol/L (21-32) 26 mmol/L (21-32) Anion Gap 13 (6-14) 9 (6-14) Blood Urea Nitrogen 11 mg/dL (7-20) 6 mg/dL (7-20) Creatinine 0.5 mg/dL (0.6-1.0) 0.5 mg/dL (0.6-1.0) Estimated GFR (Cockcroft-Gault) 131.1 131.1 Glucose Level 168 mg/dL (70-99) 165 mg/dL (70-99) Calcium Level 8.2 mg/dL (8.5-10.1) 8.2 mg/dL (8.5-10.1) Total Bilirubin 3.0 mg/dL (0.2-1.0) Direct Bilirubin 0.8 mg/dL (0.0-0.2) Aspartate Amino Transf (AST/SGOT) 217 U/L (15-37) Alanine Aminotransferase (ALT/SGPT) 100 U/L (14-59) Alkaline Phosphatase 308 U/L (46-116) Troponin I Quantitative < 0.017 ng/mL (0.000-0.055) Total Protein 7.0 g/dL (6.4-8.2) Albumin 3.0 g/dL (3.4-5.0) Lipase 14 U/L (73-393) Magnesium Level 1.3 mg/dL (1.8-2.4) Thyroid Stimulating Hormone (TSH) 6.113 uIU/mL (0.358-3.74) Medications Current Medications Methylprednisolone Sodium Succinate (SOLU-Medrol 125MG VIAL) 125 mg 1X ONCE IV Last administered on 02/28/17 12:08; Start 02/28/17 at 12:15; Stop at 12:16; Status DC Diphenhydramine HCl (Benadryl) 50 mg 1X ONCE IV Last administered on 12:07; Start 02/28/17 at 12:15; Stop 02/28/17 at 12:16; Status DC Famotidine (Pepcid Vial) 20 mg 1X ONCE IVP Last administered on 02/28/17 12: 11; Start 02/28/17 at 12:15; Stop 02/28/17 at 12:16; Status DC Epinephrine HCl (Adrenalin) 0.5 mg 1X ONCE IM Last administered on 02/28/17 12:03; Start 02/28/17 at 12:00; Stop 02/28/17 at 12:04; Status DC Sodium Chloride 1,000 ml @ 1,000 mls/hr Q1H IV Last administered on 12:06; Start 02/28/17 at 12:00; Stop 02/28/17 at 12:59; Status DC Albuterol/ Ipratropium (Duoneb) 3 ml STK-MED ONCE .ROUTE ; Start 02/28/17 at 12 :34; Stop 02/28/17 at 12:35; Status DC Ondansetron HCl (Zofran) 4 mg PRN Q8HRS PRN IV NAUSEA/VOMITING; Start at 14:15; Stop 02/28/17 at 15:01; Status DC Morphine Sulfate 2 mg PRN Q2HR PRN IV PAIN; Start 02/28/17 at 14:15; Stop 04/04 at 23:16; Status DC Sodium Chloride 1,000 ml @ 100 mls/hr Q10H IV Last administered on 03/01/17 06:06; Start 02/28/17 at 15:00; Stop 03/01/17 at 14:59 Magnesium Sulfate/ Dextrose 50 ml @ 10 mls/hr 1X ONCE IV Last administered on 02/28/17 15:00; Start 02/28/17 at 15:00; Stop 02/28/17 at 19:59; Status DC Ondansetron HCl (Zofran) 4 mg PRN Q6HRS PRN IV NAUSEA/VOMITING; Start at 15:00; Stop 03/01/17 at 14:59 Acetaminophen (Tylenol) 500 mg PRN Q6HRS PRN PO MILD PAIN / TEMP; Start at 15:00 Alprazolam (Xanax) 1 mg PRN BID PRN PO ANXIETY Last administered on 02/28/17 20:36; Start 02/28/17 at 15:00 Ferrous Sulfate (Feosol) 325 mg DAILYWBKFT PO Last administered on 03/01/17 08:12; Start 03/01/17 at 08:00 Lisinopril (Prinivil) 20 mg DAILY PO Last administered on 03/01/17 08:12; Start 02/28/17 at 15:30 Pantoprazole Sodium (Protonix) 40 mg BIDAC PO Last administered on 03/01/17 08:12; Start 02/28/17 at 16:30 Sucralfate (Carafate) 1 gm QIDACHS PO Last administered on 03/01/17 08:13; Start 02/28/17 at 16:30 Tramadol HCl (Ultram) 50 mg PRN Q6HRS PRN PO HEADACHE Last administered on 20:36; Start 02/28/17 at 15:00 Vitamin B Complex (Tyrell B) 1 tab DAILY PO Last administered on 03/01/17 08:11 ; Start 03/01/17 at 09:00 Lorazepam (Ativan) 2 mg PRN BID PRN PO ANXIETY Last administered on 03/01/17 08:13; Start 02/28/17 at 15:15 Propranolol HCl (Inderal) 20 mg TID PO Last administered on 03/01/17 08:11; Start 02/28/17 at 15:30 Iohexol (Omnipaque 300 Mg/ml) 100 ml 1X ONCE PO Last administered on 16:19; Start 02/28/17 at 16:00; Stop 02/28/17 at 16:01; Status DC Info (Do NOT chart on this entry -- for MONITORING) 1 each PRN DAILY PRN MC SEE COMMENTS; Start 02/28/17 at 16:00; Stop 03/02/17 at 15:59 Methylprednisolone Sodium Succinate (SOLU-Medrol 125MG VIAL) 125 mg DAILY IV Last administered on 03/01/17 08:12; Start 03/01/17 at 09:00 Doxycycline Hyclate (Vibra-Tab) 100 mg BID PO Last administered on 03/01/17 08:11; Start 02/28/17 at 17:00 Nicotine (Nicoderm Cq 21mg) 1 patch PRN DAILY PRN TD SMOKING CESSATION; Start 02/28/17 at 17:00 Thiamine Mononitrate (Vitamin B-1) 100 mg DAILY PO Last administered on 08:12; Start 02/28/17 at 17:30 Folic Acid (Folic Acid) 1 mg DAILY PO Last administered on 03/01/17 08:12; Start 02/28/17 at 17:30 Multivit/ Folic Acid/Iron (Multivitamin ) 1 tab DAILY PO Last administered on 03/01/17 08:13; Start 02/28/17 at 17:30 Ipratropium [place] (Atrovent) 0.5 mg RTQID NEB Last administered on 23:56; Start 02/28/17 at 20:00 Ipratropium [place] (Atrovent) 0.5 mg PRN Q2HR PRN NEB SHORTNESS OF BREATH; Start 02/28/17 at 19:15 Morphine Sulfate 2 mg PRN Q2HR PRN IV SEVERE PAIN Last administered on t 06:05; Start 02/28/17 at 23:16; Stop 03/01/17 at 14:14 Lactobacillus Rhamnosus (Culturelle) 1 cap BID PO ; Start 03/01/17 at 21:00 Budesonide (Pulmicort) 0.5 mg RTBID NEB ; Start 03/01/17 at 20:00 Budesonide (Pulmicort) 0.5 mg 1X ONCE NEB ; Start 03/01/17 at 09:30; Stop at 09:31; Status DC Magnesium Sulfate/ Dextrose 100 ml @ 25 mls/hr 1X ONCE IV ; Start 03/01/17 at 10:00; Stop 03/01/17 at 13:59 Active Scripts Active Pantoprazole Sodium 40 Mg Tablet.dr 40 Mg PO BIDAC Feosol (Ferrous Sulfate) 325 Mg Tablet 325 Mg PO DAILYWBKFT Carafate (Sucralfate) 1 Gm Tablet 1 Tab PO QID B Complex-Folic Acid Tablet (Cyanocobalamin/Fa/Pyridoxine) 1 Each Tablet 1 Each PO DAILY Reported Tramadol Hcl 50 Mg Tablet 50 Mg PO PRN Q6HRS PRN Lorazepam 2 Mg Tablet 2-4 Mg PO PRN BID PRN ALTERNATE WITH ALPRAZOLAM Alprazolam 1 Mg Tablet 1 Mg PO PRN BID PRN ALTERNATE WITH LORAZEPAM Propranolol Hcl 20 Mg Tablet 20 Mg PO TID Lisinopril 20 Mg Tablet 20 Mg PO DAILY Vitals/I & O Vital Sign - Last 24 Hours 02/28/17 02/28/17 02/28/17 02/28/17 12:00 12:22 12:43 12:45 Temp 98.5 98.5 Pulse 74 74 68 Resp 20 20 18 B/P (MAP) 146/87 (106) 146/87 (106) 163/73 (103) Pulse Ox 95 100 100 100 O2 Delivery Room Air NonRebreather Mask Nasal Cannula O2 Flow Rate 15.0 02/28/17 02/28/17 02/28/17 02/28/17 13:07 13:37 14:07 14:37 Pulse 70 70 70 72 Resp 16 16 18 16 B/P (MAP) 137/69 (91) 143/70 (94) 125/76 (92) 113/70 (84) Pulse Ox 100 100 100 100 O2 Delivery NonRebreather Mask NonRebreather Mask O2 Flow Rate 15.0 02/28/17 02/28/17 02/28/17 02/28/17 15:00 15:15 15:30 15:30 Temp 98.2 98.2 Pulse 72 72 70 Resp 35 21 20 B/P (MAP) 108/72 (84) 107/61 (76) 104/66 (79) Pulse Ox 96 97 97 O2 Delivery Nasal Cannula Nasal Cannula Nasal Cannula Nasal Cannula O2 Flow Rate 4.0 4.0 4.0 4.0 02/28/17 02/28/17 02/28/17 02/28/17 15:45 16:00 17:00 18:00 Pulse 72 74 74 80 Resp 23 30 19 27 B/P (MAP) 104/65 (78) 102/67 (79) 130/86 (101) 105/65 (78) Pulse Ox 92 89 93 92 O2 Delivery Nasal Cannula Nasal Cannula Nasal Cannula Nasal Cannula O2 Flow Rate 4.0 4.0 4.0 4.0 02/28/17 02/28/17 02/28/17 02/28/17 19:00 19:38 20:00 20:00 Temp 98.3 98.3 Pulse 82 80 Resp 22 24 B/P (MAP) 133/81 (98) 116/68 (84) Pulse Ox 96 100 96 O2 Delivery Nasal Cannula Nasal Cannula Nasal Cannula Nasal Cannula O2 Flow Rate 4.0 2.0 4.0 4.0 02/28/17 02/28/17 02/28/17 02/28/17 20:35 20:36 21:00 21:40 Pulse 80 78 Resp 20 24 16 B/P (MAP) 116/75 118/64 (82) Pulse Ox 95 93 94 O2 Delivery Nasal Cannula Room Air Room Air 02/28/17 02/28/17 02/28/17 02/28/17 22:00 23:00 23:21 23:56 Pulse 82 82 Resp 25 22 30 B/P (MAP) 138/74 (95) 127/90 (102) Pulse Ox 94 95 93 O2 Delivery Room Air Room Air Room Air Nasal Cannula O2 Flow Rate 2.0 02/28/17 03/01/17 03/01/17 03/01/17 23:59 00:00 01:00 02:00 Temp 98.3 98.3 Pulse 78 81 81 Resp 18 22 B/P (MAP) 108/73 (85) 134/75 (94) 114/65 (81) Pulse Ox 94 97 96 O2 Delivery Room Air Room Air Nasal Cannula Nasal Cannula O2 Flow Rate 2.0 2.0 03/01/17 03/01/17 03/01/17 03/01/17 03:00 03:34 04:00 04:00 Temp 98.3 98.3 Pulse 82 80 Resp 25 20 B/P (MAP) 111/68 (82) 104/67 (79) Pulse Ox 96 95 95 O2 Delivery Room Air Room Air Room Air Room Air 03/01/17 03/01/17 03/01/17 03/01/17 05:00 06:00 06:05 06:38 Pulse 72 80 Resp 16 B/P (MAP) 116/65 (82) 107/65 (79) Pulse Ox 93 94 93 93 O2 Delivery Room Air Room Air Room Air Room Air 03/01/17 03/01/17 03/01/17 08:11 08:12 08:24 Pulse 76 76 B/P (MAP) 110/75 110/76 Pulse Ox 93 O2 Delivery Room Air LUZ MORLEY MD Mar 01, 2017 09:46
[2017-03-01] MEDS ORDERED: MAGNESIUM SULFATE 4GM 100 ML IV ONE (10:00)
--- NOTE | 2017-03-01 10:59 | PDOC ---
PULMONARY PROGRESS NOTES Subjective still with extensive sc air no soa Vitals Vital Signs Date Time Temp Pulse Resp B/P (MAP) Pulse Ox O2 Delivery O2 Flow Rate FiO2 03/01/17 10:00 74 22 83/60 (68) 96 Room Air 03/01/17 08:00 97.4 97.4 03/01/17 02:00 2.0 Comments SWOLLEN EYELIDS, FACE, SC AIR General: Alert, No acute distress Lungs: Other (DECREASE BS) Cardiovascular: S1 Abdomen: Soft Neuro Exam: Alert Extremities: Other (1+EDEMA) Skin: Warm Labs Laboratory Tests Test 02/28/17 12:47 02/28/17 13:40 03/01/17 07:11 White Blood Count 10.6 x10^3/uL (4.0-11.0) Red Blood Count 3.91 x10^6/uL (3.50-5.40) Hemoglobin 13.3 g/dL (12.0-15.5) Hematocrit 40.5 % (36.0-47.0) Mean Corpuscular Volume 104 fL (79-100) Mean Corpuscular Hemoglobin 34 pg (25-35) Mean Corpuscular Hemoglobin Concent 33 g/dL (31-37) Red Cell Distribution Width 16.1 % (11.5-14.5) Platelet Count 237 x10^3/uL (140-400) Neutrophils (%) (Auto) 38 % (31-73) Lymphocytes (%) (Auto) 56 % (24-48) Monocytes (%) (Auto) 4 % (0-9) Eosinophils (%) (Auto) 0 % (0-3) Basophils (%) (Auto) 2 % (0-3) Neutrophils # (Auto) 4.0 x10^3uL (1.8-7.7) Lymphocytes # (Auto) 6.0 x10^3/uL (1.0-4.8) Monocytes # (Auto) 0.4 x10^3/uL (0.0-1.1) Eosinophils # (Auto) 0.0 x10^3/uL (0.0-0.7) Basophils # (Auto) 0.2 x10^3/uL (0.0-0.2) Sodium Level 127 mmol/L (136-145) 138 mmol/L (136-145) Potassium Level mmol/L (3.5-5.1) 5.1 mmol/L (3.5-5.1) 3.6 mmol/L (3.5-5.1) Chloride Level 92 mmol/L (98-107) 103 mmol/L (98-107) Carbon Dioxide Level 22 mmol/L (21-32) 26 mmol/L (21-32) Anion Gap 13 (6-14) 9 (6-14) Blood Urea Nitrogen 11 mg/dL (7-20) 6 mg/dL (7-20) Creatinine 0.5 mg/dL (0.6-1.0) 0.5 mg/dL (0.6-1.0) Estimated GFR (Cockcroft-Gault) 131.1 131.1 Glucose Level 168 mg/dL (70-99) 165 mg/dL (70-99) Calcium Level 8.2 mg/dL (8.5-10.1) 8.2 mg/dL (8.5-10.1) Total Bilirubin 3.0 mg/dL (0.2-1.0) Direct Bilirubin 0.8 mg/dL (0.0-0.2) Aspartate Amino Transf (AST/SGOT) 217 U/L (15-37) Alanine Aminotransferase (ALT/SGPT) 100 U/L (14-59) Alkaline Phosphatase 308 U/L (46-116) Troponin I Quantitative < 0.017 ng/mL (0.000-0.055) Total Protein 7.0 g/dL (6.4-8.2) Albumin 3.0 g/dL (3.4-5.0) Lipase 14 U/L (73-393) Magnesium Level 1.3 mg/dL (1.8-2.4) Thyroid Stimulating Hormone (TSH) 6.113 uIU/mL (0.358-3.74) Laboratory Tests Test 02/28/17 12:47 02/28/17 13:40 03/01/17 07:11 White Blood Count 10.6 x10^3/uL (4.0-11.0) Red Blood Count 3.91 x10^6/uL (3.50-5.40) Hemoglobin 13.3 g/dL (12.0-15.5) Hematocrit 40.5 % (36.0-47.0) Mean Corpuscular Volume 104 fL (79-100) Mean Corpuscular Hemoglobin 34 pg (25-35) Mean Corpuscular Hemoglobin Concent 33 g/dL (31-37) Red Cell Distribution Width 16.1 % (11.5-14.5) Platelet Count 237 x10^3/uL (140-400) Neutrophils (%) (Auto) 38 % (31-73) Lymphocytes (%) (Auto) 56 % (24-48) Monocytes (%) (Auto) 4 % (0-9) Eosinophils (%) (Auto) 0 % (0-3) Basophils (%) (Auto) 2 % (0-3) Neutrophils # (Auto) 4.0 x10^3uL (1.8-7.7) Lymphocytes # (Auto) 6.0 x10^3/uL (1.0-4.8) Monocytes # (Auto) 0.4 x10^3/uL (0.0-1.1) Eosinophils # (Auto) 0.0 x10^3/uL (0.0-0.7) Basophils # (Auto) 0.2 x10^3/uL (0.0-0.2) Sodium Level 127 mmol/L (136-145) 138 mmol/L (136-145) Potassium Level mmol/L (3.5-5.1) 5.1 mmol/L (3.5-5.1) 3.6 mmol/L (3.5-5.1) Chloride Level 92 mmol/L (98-107) 103 mmol/L (98-107) Carbon Dioxide Level 22 mmol/L (21-32) 26 mmol/L (21-32) Anion Gap 13 (6-14) 9 (6-14) Blood Urea Nitrogen 11 mg/dL (7-20) 6 mg/dL (7-20) Creatinine 0.5 mg/dL (0.6-1.0) 0.5 mg/dL (0.6-1.0) Estimated GFR (Cockcroft-Gault) 131.1 131.1 Glucose Level 168 mg/dL (70-99) 165 mg/dL (70-99) Calcium Level 8.2 mg/dL (8.5-10.1) 8.2 mg/dL (8.5-10.1) Total Bilirubin 3.0 mg/dL (0.2-1.0) Direct Bilirubin 0.8 mg/dL (0.0-0.2) Aspartate Amino Transf (AST/SGOT) 217 U/L (15-37) Alanine Aminotransferase (ALT/SGPT) 100 U/L (14-59) Alkaline Phosphatase 308 U/L (46-116) Troponin I Quantitative < 0.017 ng/mL (0.000-0.055) Total Protein 7.0 g/dL (6.4-8.2) Albumin 3.0 g/dL (3.4-5.0) Lipase 14 U/L (73-393) Magnesium Level 1.3 mg/dL (1.8-2.4) Thyroid Stimulating Hormone (TSH) 6.113 uIU/mL (0.358-3.74) Medications Active Scripts Medications Dose Route/Sig Max Daily Dose Days Date Category Dose Instructions Pantoprazole Sodium 40 Mg Tablet.dr 40 Mg PO BIDAC 08/25/15 Rx Feosol (Ferrous Sulfate) 325 Mg Tablet 325 Mg PO DAILYWBKFT 08/25/15 Rx Carafate (Sucralfate) 1 Gm Tablet 1 Tab PO QID 08/20/15 Rx Tramadol Hcl 50 Mg Tablet 50 Mg PO PRN Q6HRS PRN 07/03/15 Reported Lorazepam 2 Mg Tablet 2-4 Mg PO PRN BID PRN 07/03/15 Reported ALTERNATE WITH ALPRAZOLAM B Complex-Folic Acid Tablet (Cyanocobalamin/Fa/Pyridoxine) 1 Each Tablet 1 Each PO DAILY 04/05/15 Rx Alprazolam 1 Mg Tablet 1 Mg PO PRN BID PRN 05/01/13 Reported ALTERNATE WITH LORAZEPAM Propranolol Hcl 20 Mg Tablet 20 Mg PO TID 05/01/13 Reported Lisinopril 20 Mg Tablet 20 Mg PO DAILY 05/01/13 Reported Impression . 1. Spontaneous pneumothoraces suspect secondary to forceful cough and Valsalva with possible underlying emphysema. 2. Left upper lobe collapse, possible central obstruction VS MUCOUS PLUG 3. Severe extensive subcutaneous emphysema. 4. Pneumomediastinum.tiny PTX 5. Acute exacerbation of chronic obstructive pulmonary disease. 6. Paroxysmal coughing spells. 7. Hyponatremia. 8. Elevated liver chemistries secondary to alcoholism. 9. Mild to moderate protein deficiency, protein malnutrition. Plan . 1. No intervention. Air will slowly reabsorb itself/ f/u CXR to make sure PTX is not enlarging 2. Oxygen 3. Consult dietary. 4. Monitor liver chemistries. 5. The patient instructed on the importance of discontinuing tobacco use. 6. Nebulized treatments. 7. Antibiotics. 8. Solu-Medrol, taper off. MARQUIS KRUGER MD Mar 01, 2017 10:59
[2017-03-01 11:06] LABS: LYMPH % 40 % (24-48); NEUT % 53 % (31-73)
[2017-03-01 11:07] LABS: MONO % 4 % (0-9)
[2017-03-01 11:16] LABS: % EOS 1 % (0-5); PLT ESTIMATE DECREASED (ADEQUATE)
[2017-03-01 11:17] LABS: ANISOCYTOSIS SLIGHT; HYPOCHROMIA SLIGHT
[2017-03-01] MEDS: IPRATROPIUM BROMIDE 0.5 MG/2.5 ML NEBU. NEB SCH ×3 (12:02→20:09)
[2017-03-01] MEDS: traMADol 50 MG TABLET PO PRN (15:00)
[2017-03-01] MEDS: ENOXAPARIN 40 MG/0.4 ML SYRINGE. SQ SCH (17:32)
--- NOTE | 2017-03-01 18:07 | PDOC2 ---
CONSULT Date of Consult Date of Consult DATE: 03/01/17 TIME: 17:54 Reason for Consult Reason for Consult: Subcutaneous emphysema Referring Physician Referring Physician: Dr Kumar Identification/Chief Complaint Chief Complaint Subcutaneous emphysema Problems: Source Source: Chart review, Patient History of Present Illness Reason for Visit: The patient is a 51-year-old female who came to our emergency room yesterday with sudden onset of diffuse fascial and whole-body swelling. This was initially thought to be anaphylactic reaction to Bactrim which the patient was taking for coughing spell. Upon admission he was noted that the swelling was secondary to extensive subcutaneous emphysema. CT of the chest showed very small bilateral pneumothoraces, a nondisplaced left fifth rib fracture, extensive pneumomediastinum, subcutaneous emphysema throughout her torso, neck and face. She is normotensive. There is no leukocytosis. She denies shortness of breath. There is no stridor. She had a barium esophagram yesterday which showed a normal esophagus. I was consulted for further management of her extensive subcutaneous emphysema. Past Medical History Cardiovascular: HTN Pulmonary: Asthma Psych: Anxiety, Addictions Past Surgical History Past Surgical History: , Colon Resection, Other Family History Family History: Asthma, Cancer, Hypertension, Other Social History <1 pack per day ALCOHOL: heavy Drugs: None Current Problem List Problem List Problems Medical Problems: (1) Anaphylactic reaction Status: Acute (2) Subcutaneous emphysema Status: Acute Current Medications Current Medications Current Medications Methylprednisolone Sodium Succinate (SOLU-Medrol 125MG VIAL) 125 mg 1X ONCE IV Last administered on 02/28/17 12:08; Start 02/28/17 at 12:15; Stop at 12:16; Status DC Diphenhydramine HCl (Benadryl) 50 mg 1X ONCE IV Last administered on 12:07; Start 02/28/17 at 12:15; Stop 02/28/17 at 12:16; Status DC Famotidine (Pepcid Vial) 20 mg 1X ONCE IVP Last administered on 02/28/17 12: 11; Start 02/28/17 at 12:15; Stop 02/28/17 at 12:16; Status DC Epinephrine HCl (Adrenalin) 0.5 mg 1X ONCE IM Last administered on 02/28/17 12:03; Start 02/28/17 at 12:00; Stop 02/28/17 at 12:04; Status DC Sodium Chloride 1,000 ml @ 1,000 mls/hr Q1H IV Last administered on 12:06; Start 02/28/17 at 12:00; Stop 02/28/17 at 12:59; Status DC Albuterol/ Ipratropium (Duoneb) 3 ml STK-MED ONCE .ROUTE ; Start 02/28/17 at 12 :34; Stop 02/28/17 at 12:35; Status DC Ondansetron HCl (Zofran) 4 mg PRN Q8HRS PRN IV NAUSEA/VOMITING; Start at 14:15; Stop 02/28/17 at 15:01; Status DC Morphine Sulfate 2 mg PRN Q2HR PRN IV PAIN; Start 02/28/17 at 14:15; Stop 04/04 at 23:16; Status DC Sodium Chloride 1,000 ml @ 100 mls/hr Q10H IV Last administered on 03/01/17 06:06; Start 02/28/17 at 15:00; Stop 03/01/17 at 14:59; Status DC Magnesium Sulfate/ Dextrose 50 ml @ 10 mls/hr 1X ONCE IV Last administered on 02/28/17 15:00; Start 02/28/17 at 15:00; Stop 02/28/17 at 19:59; Status DC Ondansetron HCl (Zofran) 4 mg PRN Q6HRS PRN IV NAUSEA/VOMITING; Start at 15:00; Stop 03/01/17 at 14:59; Status DC Acetaminophen (Tylenol) 500 mg PRN Q6HRS PRN PO MILD PAIN / TEMP; Start at 15:00 Alprazolam (Xanax) 1 mg PRN BID PRN PO ANXIETY Last administered on 02/28/17 20:36; Start 02/28/17 at 15:00 Ferrous Sulfate (Feosol) 325 mg DAILYWBKFT PO Last administered on 03/01/17 08:12; Start 03/01/17 at 08:00 Lisinopril (Prinivil) 20 mg DAILY PO Last administered on 03/01/17 08:12; Start 02/28/17 at 15:30 Pantoprazole Sodium (Protonix) 40 mg BIDAC PO Last administered on 03/01/17 17:31; Start 02/28/17 at 16:30 Sucralfate (Carafate) 1 gm QIDACHS PO Last administered on 03/01/17 17:31; Start 02/28/17 at 16:30 Tramadol HCl (Ultram) 50 mg PRN Q6HRS PRN PO HEADACHE Last administered on 15:00; Start 02/28/17 at 15:00 Vitamin B Complex (Tyrell B) 1 tab DAILY PO Last administered on 03/01/17 08:11 ; Start 03/01/17 at 09:00 Lorazepam (Ativan) 2 mg PRN BID PRN PO ANXIETY Last administered on 03/01/17 08:13; Start 02/28/17 at 15:15 Propranolol HCl (Inderal) 20 mg TID PO Last administered on 03/01/17 08:11; Start 02/28/17 at 15:30 Iohexol (Omnipaque 300 Mg/ml) 100 ml 1X ONCE PO Last administered on 16:19; Start 02/28/17 at 16:00; Stop 02/28/17 at 16:01; Status DC Info (Do NOT chart on this entry -- for MONITORING) 1 each PRN DAILY PRN MC SEE COMMENTS; Start 02/28/17 at 16:00; Stop 03/02/17 at 15:59 Methylprednisolone Sodium Succinate (SOLU-Medrol 125MG VIAL) 125 mg DAILY IV Last administered on 03/01/17 08:12; Start 03/01/17 at 09:00; Stop 03/01/17 at 09:43; Status DC Doxycycline Hyclate (Vibra-Tab) 100 mg BID PO Last administered on 03/01/17 08:11; Start 02/28/17 at 17:00 Nicotine (Nicoderm Cq 21mg) 1 patch PRN DAILY PRN TD SMOKING CESSATION; Start 02/28/17 at 17:00 Thiamine Mononitrate (Vitamin B-1) 100 mg DAILY PO Last administered on 08:12; Start 02/28/17 at 17:30 Folic Acid (Folic Acid) 1 mg DAILY PO Last administered on 03/01/17 08:12; Start 02/28/17 at 17:30 Multivit/ Folic Acid/Iron (Multivitamin ) 1 tab DAILY PO Last administered on 03/01/17 08:13; Start 02/28/17 at 17:30 Ipratropium [place] (Atrovent) 0.5 mg RTQID NEB Last administered on 16:20; Start 02/28/17 at 20:00 Ipratropium [place] (Atrovent) 0.5 mg PRN Q2HR PRN NEB SHORTNESS OF BREATH; Start 02/28/17 at 19:15 Morphine Sulfate 2 mg PRN Q2HR PRN IV SEVERE PAIN Last administered on 06:05; Start 02/28/17 at 23:16; Stop 03/01/17 at 09:43; Status DC Lactobacillus Rhamnosus (Culturelle) 1 cap BID PO ; Start 03/01/17 at 21:00 Budesonide (Pulmicort) 0.5 mg RTBID NEB ; Start 03/01/17 at 20:00 Budesonide (Pulmicort) 0.5 mg 1X ONCE NEB Last administered on 03/01/17 12: 19; Start 03/01/17 at 09:30; Stop 03/01/17 at 09:31; Status DC Magnesium Sulfate/ Dextrose 100 ml @ 25 mls/hr 1X ONCE IV Last administered on 03/01/17 12:32; Start 03/01/17 at 10:00; Stop 03/01/17 at 13:59; Status DC Methylprednisolone Sodium Succinate (SOLU-Medrol 125MG VIAL) 125 mg BID IV ; Start 03/01/17 at 21:00; Stop 03/01/17 at 21:00; Status DC Diphenhydramine HCl (Benadryl) 50 mg 1X ONCE IVP Last administered on 12:32; Start 03/01/17 at 09:45; Stop 03/01/17 at 09:46; Status DC Diphenhydramine HCl (Benadryl) 25 mg PRN Q6HRS PRN IVP ITCHING; Start at 09:45 Fentanyl Citrate (Fentanyl 2ml Vial) 50 mcg PRN Q2HR PRN IV PAIN; Start at 09:45 Enoxaparin Sodium (Lovenox Per Pharmacy Prophylaxis Dosing) 1 each PRN DAILY PRN MC SEE COMMENTS; Start 03/01/17 at 10:45 Enoxaparin Sodium (Lovenox 40mg Syringe) 40 mg DAILY16 SQ Last administered on 03/01/17t 17:32; Start 03/01/17 at 16:00 Prednisone (Prednisone) 40 mg DAILY PO ; Start 03/02/17 at 09:00 Active Scripts Active Pantoprazole Sodium 40 Mg Tablet.dr 40 Mg PO BIDAC Feosol (Ferrous Sulfate) 325 Mg Tablet 325 Mg PO DAILYWBKFT Carafate (Sucralfate) 1 Gm Tablet 1 Tab PO QID B Complex-Folic Acid Tablet (Cyanocobalamin/Fa/Pyridoxine) 1 Each Tablet 1 Each PO DAILY Reported Tramadol Hcl 50 Mg Tablet 50 Mg PO PRN Q6HRS PRN Lorazepam 2 Mg Tablet 2-4 Mg PO PRN BID PRN ALTERNATE WITH ALPRAZOLAM Alprazolam 1 Mg Tablet 1 Mg PO PRN BID PRN ALTERNATE WITH LORAZEPAM Propranolol Hcl 20 Mg Tablet 20 Mg PO TID Lisinopril 20 Mg Tablet 20 Mg PO DAILY Allergies Allergies: Coded Allergies: Monoamine Oxidase Inhibitors (Verified Allergy, Severe, Anaphylaxis, ) ALL [employer]TIDEPRESSANTS Tricyclic Compounds (Verified Allergy, Severe, Anaphylaxis, 08/20/15) ALL ANTIDEPRESSANTS bupropion (Verified Allergy, Severe, Anaphylaxis, 08/20/15) ALL ANTIDEPRESSANTS paroxetine (Verified Allergy, Severe, Anaphylaxis, 08/20/15) ALL ANTIDEPRESSANTS sulfamethoxazole (Verified Allergy, Severe, Anaphylaxis, 02/28/17) trazodone (Verified Allergy, Severe, Anaphylaxis, 08/20/15) ALL ANTIDEPRESSANTS trimethoprim (Verified Allergy, Severe, Anaphylaxis, 02/28/17) venlafaxine HCl (Verified Allergy, Severe, Anaphylaxis, 08/20/15) ALL ANTIDEPRESSANTS ROS General: No: Chills, Night Sweats, Fatigue, Malaise, Appetite PSYCHOLOGICAL ROS: YES: Anxiety, Behavioral Disorder, No: Concentration difficultie, Decreased libido, Depression, Disorientation, Hallucinations, Hostility, Irritablity, Memory difficulties, Mood Swings, Obsessive thoughts, Physical abuse, Sexual abuse, Sleep disturbances, Suicidal ideation Eyes: Yes Decreased vision, No Blurry vision, No Double vision, No Dry eyes, No Excessive tearing, No Eye Pain, No Itchy Eyes, No Loss of vision, No Photophobia, No Scotomata, No Uses contacts, No Uses glasses HEENT: YES: Vocal changes, No: Heacaches, Visual Changes, Hearing change, Nasal congestion, Nasal discharge, Oral lesions, Sinus pain, Sore Throat, Epistaxis, Sneezing, Snoring, Tinnitus, Vertigo ALLERGY AND IMMUNOLOGY: No: Hives, Insect Bite Sensitivity, Itchy/Watery Eyes, Nasal Congestion, Post Nasal Drip, Seasonal Allergies Hematological and Lymphatic: No: Bleeding Problems, Blood Clots, Blood Transfusions, Brusing, Night Sweats, Pallor, Swollen Lymph Nodes ENDOCRINE: No: Breast Changes, Galactorrhea, Hair Pattern Changes, Hot Flashes , Malaise/lethargy, Mood Swings, Palpitations, Polydipsia/polyuria, Skin Changes , Temperature Intolerance, Unexpected Weight Changes Breast: No New/Changing Breast Lumps, No Nipple changes, No Nipple discharge Respiratory: YES: Cough, Wheezing, Other (subcutaneous emphysema), No: Hemoptysis, Orthopnea, Pleuritic Pain, Shortness of breath, SOB with excertion, Sputum Changes, Stridor, Tachypnea Cardiovascular: No Chest Pain, No Palpitations, No Orthopnea, No Paroxysmal Noc. Dyspnea, No Edema, No Lt Headedness Gastrointestinal: No Nausea, No Vomiting, No Abdominal Pain, No Diarrhea, No Constipation, No Melena, No Hematochezia Genitourinary: YES , No Dysuria, No Frequency, No Incontinence, No Hematuria, No Retention, No Discharge, No Urgency, No Pain, No Flank Pain Musculoskeletal: No Gait Disturbance, No Joint Pain, No Joint Stiffness, No Joint Swelling, No Muscle Pain, No Muscular Weakness, No Pain In:, No Swelling In: Neurological: Yes Visual Changes, No Behavorial Changes, No Bowel/Bladder ControlChng, No Confusion, No Dizziness, No Gait Disturbance, No Headaches, No Impaired Coord/balance, No Memory Loss, No Numbness/Tingling, No Seizures, No Speech Problems, No Tremors, No Weakness Skin: Yes Other (subcutaneous emphysema), No Dry Skin, No Eczema, No Hair Changes, No Lumps, No Mole Changes, No Mottling, No Nail Changes, No Pruritus, No Rash, No Skin Lesion Changes, No Acne Physical Exam General: Alert, Oriented X3 HEENT: Other (eyelid subcutaneous emphysema which also includes the soft tissues of the face and neck) Lungs: Other (diffuse bilateral wheezing) Heart: Regular rate, Normal S1, Normal S2 Abdomen: Soft, No tenderness Extremities: No edema Skin: No significant lesion Neuro: Normal gait, Normal speech, Strength at 5/5 X4 ext, Normal tone, Sensation intact, Cranial nerves 3-12 NL, Reflexes 2+ Psych/Mental Status: Mental status NL MUSCULOSKELETAL: No deformity Vitals VITALS Vital Signs Date Time Temp Pulse Resp B/P (MAP) Pulse Ox O2 Delivery O2 Flow Rate FiO2 03/01/17 17:00 74 20 104/66 (79) 100 Nasal Cannula 4.0 03/01/17 16:00 98.3 98.3 Labs Labs Laboratory Tests Test 02/28/17 12:47 02/28/17 13:40 03/01/17 06:00 03/01/17 07:11 White Blood Count 10.6 x10^3/uL (4.0-11.0) 6.5 x10^3/uL (4.0-11.0) Red Blood Count 3.91 x10^6/uL (3.50-5.40) 3.60 x10^6/uL (3.50-5.40) Hemoglobin 13.3 g/dL (12.0-15.5) 12.5 g/dL (12.0-15.5) Hematocrit 40.5 % (36.0-47.0) 37.0 % (36.0-47.0) Mean Corpuscular Volume 104 fL (79-100) 103 fL (79-100) Mean Corpuscular Hemoglobin 34 pg (25-35) 35 pg (25-35) Mean Corpuscular Hemoglobin Concent 33 g/dL (31-37) 34 g/dL (31-37) Red Cell Distribution Width 16.1 % (11.5-14.5) 15.8 % (11.5-14.5) Platelet Count 237 x10^3/uL (140-400) 86 x10^3/uL (140-400) Neutrophils (%) (Auto) 38 % (31-73) 53 % (31-73) Lymphocytes (%) (Auto) 56 % (24-48) 40 % (24-48) Monocytes (%) (Auto) 4 % (0-9) 4 % (0-9) Eosinophils (%) (Auto) 0 % (0-3) 1 % (0-3) Basophils (%) (Auto) 2 % (0-3) 2 % (0-3) Neutrophils # (Auto) 4.0 x10^3uL (1.8-7.7) 3.1 x10^3uL (1.8-7.7) Lymphocytes # (Auto) 6.0 x10^3/uL (1.0-4.8) 3.1 x10^3/uL (1.0-4.8) Monocytes # (Auto) 0.4 x10^3/uL (0.0-1.1) 0.2 x10^3/uL (0.0-1.1) Eosinophils # (Auto) 0.0 x10^3/uL (0.0-0.7) 0.0 x10^3/uL (0.0-0.7) Basophils # (Auto) 0.2 x10^3/uL (0.0-0.2) 0.1 x10^3/uL (0.0-0.2) Sodium Level 127 mmol/L (136-145) 138 mmol/L (136-145) Potassium Level mmol/L (3.5-5.1) 5.1 mmol/L (3.5-5.1) 3.6 mmol/L (3.5-5.1) Chloride Level 92 mmol/L (98-107) 103 mmol/L (98-107) Carbon Dioxide Level 22 mmol/L (21-32) 26 mmol/L (21-32) Anion Gap 13 (6-14) 9 (6-14) Blood Urea Nitrogen 11 mg/dL (7-20) 6 mg/dL (7-20) Creatinine 0.5 mg/dL (0.6-1.0) 0.5 mg/dL (0.6-1.0) Estimated GFR (Cockcroft-Gault) 131.1 131.1 Glucose Level 168 mg/dL (70-99) 165 mg/dL (70-99) Calcium Level 8.2 mg/dL (8.5-10.1) 8.2 mg/dL (8.5-10.1) Total Bilirubin 3.0 mg/dL (0.2-1.0) Direct Bilirubin 0.8 mg/dL (0.0-0.2) Aspartate Amino Transf (AST/SGOT) 217 U/L (15-37) Alanine Aminotransferase (ALT/SGPT) 100 U/L (14-59) Alkaline Phosphatase 308 U/L (46-116) Troponin I Quantitative < 0.017 ng/mL (0.000-0.055) Total Protein 7.0 g/dL (6.4-8.2) Albumin 3.0 g/dL (3.4-5.0) Lipase 14 U/L (73-393) Magnesium Level 1.3 mg/dL (1.8-2.4) Nasal Screen MRSA (PCR) Negative (Negative) Segmented Neutrophils % 69 % (35-66) Band Neutrophils % 14 % (0-9) Lymphocytes % 14 % (24-48) Monocytes % 2 % (0-10) Eosinophils % 1 % (0-5) Platelet Estimate Decreased (ADEQUATE) Hypochromasia Slight Anisocytosis Slight Thyroid Stimulating Hormone (TSH) 6.113 uIU/mL (0.358-3.74) Laboratory Tests Test 03/01/17 06:00 03/01/17 07:11 Nasal Screen MRSA (PCR) Negative (Negative) White Blood Count 6.5 x10^3/uL (4.0-11.0) Red Blood Count 3.60 x10^6/uL (3.50-5.40) Hemoglobin 12.5 g/dL (12.0-15.5) Hematocrit 37.0 % (36.0-47.0) Mean Corpuscular Volume 103 fL (79-100) Mean Corpuscular Hemoglobin 35 pg (25-35) Mean Corpuscular Hemoglobin Concent 34 g/dL (31-37) Red Cell Distribution Width 15.8 % (11.5-14.5) Platelet Count 86 x10^3/uL (140-400) Neutrophils (%) (Auto) 53 % (31-73) Lymphocytes (%) (Auto) 40 % (24-48) Monocytes (%) (Auto) 4 % (0-9) Eosinophils (%) (Auto) 1 % (0-3) Basophils (%) (Auto) 2 % (0-3) Neutrophils # (Auto) 3.1 x10^3uL (1.8-7.7) Lymphocytes # (Auto) 3.1 x10^3/uL (1.0-4.8) Monocytes # (Auto) 0.2 x10^3/uL (0.0-1.1) Eosinophils # (Auto) 0.0 x10^3/uL (0.0-0.7) Basophils # (Auto) 0.1 x10^3/uL (0.0-0.2) Segmented Neutrophils % 69 % (35-66) Band Neutrophils % 14 % (0-9) Lymphocytes % 14 % (24-48) Monocytes % 2 % (0-10) Eosinophils % 1 % (0-5) Platelet Estimate Decreased (ADEQUATE) Hypochromasia Slight Anisocytosis Slight Sodium Level 138 mmol/L (136-145) Potassium Level 3.6 mmol/L (3.5-5.1) Chloride Level 103 mmol/L (98-107) Carbon Dioxide Level 26 mmol/L (21-32) Anion Gap 9 (6-14) Blood Urea Nitrogen 6 mg/dL (7-20) Creatinine 0.5 mg/dL (0.6-1.0) Estimated GFR (Cockcroft-Gault) 131.1 Glucose Level 165 mg/dL (70-99) Calcium Level 8.2 mg/dL (8.5-10.1) Thyroid Stimulating Hormone (TSH) 6.113 uIU/mL (0.358-3.74) Images Images FINDINGS: There is normal swallowing function, without evidence of aspiration or penetration. The esophagus is normal in caliber. No esophageal mucosal lesion is seen. There is no extravasation of contrast to suggest esophageal rupture. There is no diverticulum. There is no hiatal hernia. The stomach and proximal small bowel are unremarkable. There is extensive soft tissue emphysema throughout the chest, upper abdomen and neck and upper extremities. There is pneumomediastinum. There is partial collapse of the left upper lobe. There are tiny right and small left pneumothoraces. There is a minimally displaced left lateral fifth rib fracture. IMPRESSION: 1. No evidence of esophageal tear or alternative esophageal finding. 2. Extensive soft tissue gas, pneumomediastinum, and tiny right and small left pneumothoraces. This is further characterized on the CT obtained on the same date. 3. Minimally displaced lateral left fifth rib fracture. Assessment/Plan Assessment/Plan 51-year-old female who came to our emergency room yesterday with sudden onset of diffuse fascial and whole-body swelling. This was initially thought to be anaphylactic reaction to Bactrim which the patient was taking for coughing spell. Upon admission he was noted that the swelling was secondary to extensive subcutaneous emphysema. CT of the chest showed very small bilateral pneumothoraces, a nondisplaced left fifth rib fracture, extensive pneumomediastinum, subcutaneous emphysema throughout her torso, neck and face. She is normotensive. There is no leukocytosis. She denies shortness of breath. There is no stridor. She had a barium esophagram yesterday which showed a normal esophagus. With this amount of subcutaneous emphysema, the most likely source is from the mediastinum, either the airway or the esophagus. An esophagram yesterday essentially showed that there was no marlene perforation / contrast extravasation. The mediastinum as the source of the subcutaneous emphysema is consistent with her recent history of coughing spells. This is either a esophageal microperforation which has now sealed or a tracheobronchial microperforation. We cannot ignore the new left fifth rib fracture, although it is nondisplaced and one would not expect this amount of subcutaneous emphysema from a nondisplaced rib fracture. In addition there is no significant pneumothorax on the left. Although an impressive clinical finding, subcutaneous emphysema is benign and does not require any specific treatment. The subcutaneous emphysema will absorb on its own over the next 5-7 days. The pneumothoraces are extremely small and do not require any intervention. Her esophagus does not need any further workup , in view of her normal barium esophagram. One may consider a bronchoscopy in the future, which can be done as an outpatient. Would recommend supportive care for now. Okay to have a regular diet. I think she should also be on a week's course of antibiotics, to prevent mediastinal contamination considering that this is most likely an airway or esophageal microperforation. Once the subcutaneous emphysema has subsided from her eyelids and she is able to open her eyes and see, I think it would be safe to send her home. I explained to the patient that the subcutaneous emphysema will completely resolve within a week or so without any interventions. TSIOURIS,ATHANASIOS MD Mar 01, 2017 18:07
[2017-03-01] MEDS: BUDESONIDE 0.5 MG/2 ML NEBU. NEB SCH (20:09)
[2017-03-01] MEDS: ALPRAZolam 1 MG TABLET PO PRN (22:17)
[2017-03-01] MEDS: LACTOBACILLUS RHAMNOSUS GG 1 CAPSULE. PO SCH (22:17)
[2017-03-02] VITALS (25 sets, daily range): BP systolic 87–137; BP diastolic 51–90
[2017-03-02 06:29] LABS: BASO % 1 % (0-3); EOS % 2 % (0-3); HEMOGLOBIN 10.5 g/dL (12.0-15.5); LYMPH # 2.3 x10^3/uL (1.0-4.8); LYMPH % 40 % (24-48); MEAN CORPUSCULAR HEMOGLOBIN 35 pg (25-35); MEAN CORPUSCULAR HGB CONC 34 g/dL (31-37); MEAN CORPUSCULAR VOLUME 104 fL (79-100); MONO % 4 % (0-9); NEUT % 53 % (31-73); PLATELET COUNT 78 x10^3/uL (140-400); RED BLOOD COUNT 2.99 x10^6/uL (3.50-5.40); RED CELL DISTRIBUTION WIDTH 16.4 % (11.5-14.5); WHITE BLOOD COUNT 5.8 x10^3/uL (4.0-11.0)
[2017-03-02 06:46] LABS: ALBUMIN 2.3 g/dL (3.4-5.0); ALBUMIN/GLOBULIN RATIO 0.7 (1.0-1.7); CREATININE 0.4 mg/dL (0.6-1.0); GFR 169.7; POTASSIUM 3.5 mmol/L (3.5-5.1); TOTAL BILIRUBIN 3.3 mg/dL (0.2-1.0); TOTAL PROTEIN 5.5 g/dL (6.4-8.2)
[2017-03-02] MEDS: IPRATROPIUM BROMIDE 0.5 MG/2.5 ML NEBU. NEB SCH ×4 (07:48→19:44)
[2017-03-02] MEDS: BUDESONIDE 0.5 MG/2 ML NEBU. NEB SCH ×2 (07:48→19:44)
[2017-03-02] MEDS: LACTOBACILLUS RHAMNOSUS GG 1 CAPSULE. PO SCH ×2 (08:31→20:43)
[2017-03-02] MEDS: DOXYCYCLINE HYCLATE 100 MG TABLET PO SCH ×2 (08:31→20:43)
[2017-03-02] MEDS: THIAMINE 100 MG TABLET. PO SCH (08:31)
[2017-03-02] MEDS: SUCRALFATE 1 GM TABLET. PO SCH ×4 (08:31→20:44)
[2017-03-02] MEDS: VITAMIN B COMPLEX TABLET. PO SCH (08:31)
[2017-03-02] MEDS: PANTOPRAZOLE 40 MG TABLET.DR. PO SCH ×2 (08:31→16:25)
[2017-03-02] MEDS: FERROUS SULFATE 325 MG TABLET. PO SCH (08:32)
[2017-03-02] MEDS: FOLIC ACID 1 MG TABLET. PO SCH (08:32)
[2017-03-02] MEDS: PRENATAL MULTIVITAMIN TABLET. PO SCH (08:32)
[2017-03-02] MEDS: PROPRANOLOL 10 MG TABLET. PO SCH ×3 (08:33→20:44)
[2017-03-02] MEDS: LISINOPRIL 20 MG TABLET PO SCH (08:33)
--- NOTE | 2017-03-02 08:58 | RAD ---
Portable chest, 03/02/2017: History: Pneumomediastinum Comparison is made to a study from 02/28/2017. There is extensive subcutaneous emphysema over both hemithoraces extending into the neck, shoulder and arm regions. There is pneumomediastinum. No large pneumothorax is identified, although, these extensive overlying lucencies will hinder visualization of a small pneumothorax. There appear to be patchy infiltrates in the left lung including the lingula. No large pleural effusion is seen. The heart size is normal. IMPRESSION: 1. Ongoing extensive bilateral subcutaneous emphysema and pneumomediastinum. 2. No large pneumothorax is identified. 3. Mild patchy left lung infiltrates.
[2017-03-02] MEDS ORDERED: predniSONE 20 MG TABLET PO SCH (09:00)
--- NOTE | 2017-03-02 09:06 | PDOC ---
PROGRESS NOTES Chief Complaint Chief Complaint marked facial swelling, free air from pneumomediastinum, CT is impressive, Small apical pneumothoraces, 1-2 % - conservative mx for now Left 5th rib fx, acute; s/p fall Obesity tobacco use disorder edema of neck, face, arms Hyponatremia - 127 Anaphylaxis likely to bactrim - transaminitis, History of Present Illness History of Present Illness still in ICU, able to swallow, eyes are less swollen, she can see some today Pulmo consult follwing doing ok with diet, PT/OT nicotine patch is PRN Vitals Vitals Vital Signs Date Time Temp Pulse Resp B/P (MAP) Pulse Ox O2 Delivery O2 Flow Rate FiO2 03/02/17 08:33 64 98/66 03/02/17 07:48 99 Nasal Cannula 3.5 03/02/17 06:00 14 03/02/17 04:00 98.0 98.0 Physical Exam General: Alert, Oriented X3 Heart: Regular rate, Normal S1, Normal S2 Lungs: Other (DECREASE BS) Abdomen: Soft, No tenderness Extremities: No edema Skin: No rashes Labs LABS Laboratory Tests Test 03/02/17 05:00 03/02/17 05:30 Sodium Level 140 mmol/L (136-145) Potassium Level 3.5 mmol/L (3.5-5.1) Chloride Level 107 mmol/L (98-107) Carbon Dioxide Level 27 mmol/L (21-32) Anion Gap 6 (6-14) Blood Urea Nitrogen 4 mg/dL (7-20) Creatinine 0.4 mg/dL (0.6-1.0) Estimated GFR (Cockcroft-Gault) 169.7 BUN/Creatinine Ratio 10 (6-20) Glucose Level 91 mg/dL (70-99) Calcium Level 8.0 mg/dL (8.5-10.1) Total Bilirubin 3.3 mg/dL (0.2-1.0) Aspartate Amino Transf (AST/SGOT) 162 U/L (15-37) Alanine Aminotransferase (ALT/SGPT) 82 U/L (14-59) Alkaline Phosphatase 214 U/L (46-116) Total Protein 5.5 g/dL (6.4-8.2) Albumin 2.3 g/dL (3.4-5.0) Albumin/Globulin Ratio 0.7 (1.0-1.7) White Blood Count 5.8 x10^3/uL (4.0-11.0) Red Blood Count 2.99 x10^6/uL (3.50-5.40) Hemoglobin 10.5 g/dL (12.0-15.5) Hematocrit 31.0 % (36.0-47.0) Mean Corpuscular Volume 104 fL (79-100) Mean Corpuscular Hemoglobin 35 pg (25-35) Mean Corpuscular Hemoglobin Concent 34 g/dL (31-37) Red Cell Distribution Width 16.4 % (11.5-14.5) Platelet Count 78 x10^3/uL (140-400) Neutrophils (%) (Auto) 53 % (31-73) Lymphocytes (%) (Auto) 40 % (24-48) Monocytes (%) (Auto) 4 % (0-9) Eosinophils (%) (Auto) 2 % (0-3) Basophils (%) (Auto) 1 % (0-3) Neutrophils # (Auto) 3.1 x10^3uL (1.8-7.7) Lymphocytes # (Auto) 2.3 x10^3/uL (1.0-4.8) Monocytes # (Auto) 0.3 x10^3/uL (0.0-1.1) Eosinophils # (Auto) 0.1 x10^3/uL (0.0-0.7) Basophils # (Auto) 0.0 x10^3/uL (0.0-0.2) Review of Systems Review of Systems face pain, nausea, some confusion Assessment and Plan Assessmemt and Plan Problems Medical Problems: (1) Anaphylactic reaction Status: Acute (2) Subcutaneous emphysema Status: Acute Problems: Comment Review of Relevant I have reviewed the following items yu (where applicable) has been applied. Labs Laboratory Tests Test 02/28/17 12:47 02/28/17 13:40 03/01/17 06:00 03/01/17 07:11 White Blood Count 10.6 x10^3/uL (4.0-11.0) 6.5 x10^3/uL (4.0-11.0) Red Blood Count 3.91 x10^6/uL (3.50-5.40) 3.60 x10^6/uL (3.50-5.40) Hemoglobin 13.3 g/dL (12.0-15.5) 12.5 g/dL (12.0-15.5) Hematocrit 40.5 % (36.0-47.0) 37.0 % (36.0-47.0) Mean Corpuscular Volume 104 fL (79-100) 103 fL (79-100) Mean Corpuscular Hemoglobin 34 pg (25-35) 35 pg (25-35) Mean Corpuscular Hemoglobin Concent 33 g/dL (31-37) 34 g/dL (31-37) Red Cell Distribution Width 16.1 % (11.5-14.5) 15.8 % (11.5-14.5) Platelet Count 237 x10^3/uL (140-400) 86 x10^3/uL (140-400) Neutrophils (%) (Auto) 38 % (31-73) 53 % (31-73) Lymphocytes (%) (Auto) 56 % (24-48) 40 % (24-48) Monocytes (%) (Auto) 4 % (0-9) 4 % (0-9) Eosinophils (%) (Auto) 0 % (0-3) 1 % (0-3) Basophils (%) (Auto) 2 % (0-3) 2 % (0-3) Neutrophils # (Auto) 4.0 x10^3uL (1.8-7.7) 3.1 x10^3uL (1.8-7.7) Lymphocytes # (Auto) 6.0 x10^3/uL (1.0-4.8) 3.1 x10^3/uL (1.0-4.8) Monocytes # (Auto) 0.4 x10^3/uL (0.0-1.1) 0.2 x10^3/uL (0.0-1.1) Eosinophils # (Auto) 0.0 x10^3/uL (0.0-0.7) 0.0 x10^3/uL (0.0-0.7) Basophils # (Auto) 0.2 x10^3/uL (0.0-0.2) 0.1 x10^3/uL (0.0-0.2) Sodium Level 127 mmol/L (136-145) 138 mmol/L (136-145) Potassium Level mmol/L (3.5-5.1) 5.1 mmol/L (3.5-5.1) 3.6 mmol/L (3.5-5.1) Chloride Level 92 mmol/L (98-107) 103 mmol/L (98-107) Carbon Dioxide Level 22 mmol/L (21-32) 26 mmol/L (21-32) Anion Gap 13 (6-14) 9 (6-14) Blood Urea Nitrogen 11 mg/dL (7-20) 6 mg/dL (7-20) Creatinine 0.5 mg/dL (0.6-1.0) 0.5 mg/dL (0.6-1.0) Estimated GFR (Cockcroft-Gault) 131.1 131.1 Glucose Level 168 mg/dL (70-99) 165 mg/dL (70-99) Calcium Level 8.2 mg/dL (8.5-10.1) 8.2 mg/dL (8.5-10.1) Total Bilirubin 3.0 mg/dL (0.2-1.0) Direct Bilirubin 0.8 mg/dL (0.0-0.2) Aspartate Amino Transf (AST/SGOT) 217 U/L (15-37) Alanine Aminotransferase (ALT/SGPT) 100 U/L (14-59) Alkaline Phosphatase 308 U/L (46-116) Troponin I Quantitative < 0.017 ng/mL (0.000-0.055) Total Protein 7.0 g/dL (6.4-8.2) Albumin 3.0 g/dL (3.4-5.0) Lipase 14 U/L (73-393) Magnesium Level 1.3 mg/dL (1.8-2.4) Nasal Screen MRSA (PCR) Negative (Negative) Segmented Neutrophils % 69 % (35-66) Band Neutrophils % 14 % (0-9) Lymphocytes % 14 % (24-48) Monocytes % 2 % (0-10) Eosinophils % 1 % (0-5) Platelet Estimate Decreased (ADEQUATE) Hypochromasia Slight Anisocytosis Slight Thyroid Stimulating Hormone (TSH) 6.113 uIU/mL (0.358-3.74) Test 03/02/17 05:00 03/02/17 05:30 Sodium Level 140 mmol/L (136-145) Potassium Level 3.5 mmol/L (3.5-5.1) Chloride Level 107 mmol/L (98-107) Carbon Dioxide Level 27 mmol/L (21-32) Anion Gap 6 (6-14) Blood Urea Nitrogen 4 mg/dL (7-20) Creatinine 0.4 mg/dL (0.6-1.0) Estimated GFR (Cockcroft-Gault) 169.7 BUN/Creatinine Ratio 10 (6-20) Glucose Level 91 mg/dL (70-99) Calcium Level 8.0 mg/dL (8.5-10.1) Total Bilirubin 3.3 mg/dL (0.2-1.0) Aspartate Amino Transf (AST/SGOT) 162 U/L (15-37) Alanine Aminotransferase (ALT/SGPT) 82 U/L (14-59) Alkaline Phosphatase 214 U/L (46-116) Total Protein 5.5 g/dL (6.4-8.2) Albumin 2.3 g/dL (3.4-5.0) Albumin/Globulin Ratio 0.7 (1.0-1.7) White Blood Count 5.8 x10^3/uL (4.0-11.0) Red Blood Count 2.99 x10^6/uL (3.50-5.40) Hemoglobin 10.5 g/dL (12.0-15.5) Hematocrit 31.0 % (36.0-47.0) Mean Corpuscular Volume 104 fL (79-100) Mean Corpuscular Hemoglobin 35 pg (25-35) Mean Corpuscular Hemoglobin Concent 34 g/dL (31-37) Red Cell Distribution Width 16.4 % (11.5-14.5) Platelet Count 78 x10^3/uL (140-400) Neutrophils (%) (Auto) 53 % (31-73) Lymphocytes (%) (Auto) 40 % (24-48) Monocytes (%) (Auto) 4 % (0-9) Eosinophils (%) (Auto) 2 % (0-3) Basophils (%) (Auto) 1 % (0-3) Neutrophils # (Auto) 3.1 x10^3uL (1.8-7.7) Lymphocytes # (Auto) 2.3 x10^3/uL (1.0-4.8) Monocytes # (Auto) 0.3 x10^3/uL (0.0-1.1) Eosinophils # (Auto) 0.1 x10^3/uL (0.0-0.7) Basophils # (Auto) 0.0 x10^3/uL (0.0-0.2) Laboratory Tests Test 03/02/17 05:00 03/02/17 05:30 Sodium Level 140 mmol/L (136-145) Potassium Level 3.5 mmol/L (3.5-5.1) Chloride Level 107 mmol/L (98-107) Carbon Dioxide Level 27 mmol/L (21-32) Anion Gap 6 (6-14) Blood Urea Nitrogen 4 mg/dL (7-20) Creatinine 0.4 mg/dL (0.6-1.0) Estimated GFR (Cockcroft-Gault) 169.7 BUN/Creatinine Ratio 10 (6-20) Glucose Level 91 mg/dL (70-99) Calcium Level 8.0 mg/dL (8.5-10.1) Total Bilirubin 3.3 mg/dL (0.2-1.0) Aspartate Amino Transf (AST/SGOT) 162 U/L (15-37) Alanine Aminotransferase (ALT/SGPT) 82 U/L (14-59) Alkaline Phosphatase 214 U/L (46-116) Total Protein 5.5 g/dL (6.4-8.2) Albumin 2.3 g/dL (3.4-5.0) Albumin/Globulin Ratio 0.7 (1.0-1.7) White Blood Count 5.8 x10^3/uL (4.0-11.0) Red Blood Count 2.99 x10^6/uL (3.50-5.40) Hemoglobin 10.5 g/dL (12.0-15.5) Hematocrit 31.0 % (36.0-47.0) Mean Corpuscular Volume 104 fL (79-100) Mean Corpuscular Hemoglobin 35 pg (25-35) Mean Corpuscular Hemoglobin Concent 34 g/dL (31-37) Red Cell Distribution Width 16.4 % (11.5-14.5) Platelet Count 78 x10^3/uL (140-400) Neutrophils (%) (Auto) 53 % (31-73) Lymphocytes (%) (Auto) 40 % (24-48) Monocytes (%) (Auto) 4 % (0-9) Eosinophils (%) (Auto) 2 % (0-3) Basophils (%) (Auto) 1 % (0-3) Neutrophils # (Auto) 3.1 x10^3uL (1.8-7.7) Lymphocytes # (Auto) 2.3 x10^3/uL (1.0-4.8) Monocytes # (Auto) 0.3 x10^3/uL (0.0-1.1) Eosinophils # (Auto) 0.1 x10^3/uL (0.0-0.7) Basophils # (Auto) 0.0 x10^3/uL (0.0-0.2) Medications Current Medications Methylprednisolone Sodium Succinate (SOLU-Medrol 125MG VIAL) 125 mg 1X ONCE IV Last administered on 02/28/17 12:08; Start 02/28/17 at 12:15; Stop at 12:16; Status DC Diphenhydramine HCl (Benadryl) 50 mg 1X ONCE IV Last administered on 12:07; Start 02/28/17 at 12:15; Stop 02/28/17 at 12:16; Status DC Famotidine (Pepcid Vial) 20 mg 1X ONCE IVP Last administered on 02/28/17 12: 11; Start 02/28/17 at 12:15; Stop 02/28/17 at 12:16; Status DC Epinephrine HCl (Adrenalin) 0.5 mg 1X ONCE IM Last administered on 02/28/17 12:03; Start 02/28/17 at 12:00; Stop 02/28/17 at 12:04; Status DC Sodium Chloride 1,000 ml @ 1,000 mls/hr Q1H IV Last administered on 12:06; Start 02/28/17 at 12:00; Stop 02/28/17 at 12:59; Status DC Albuterol/ Ipratropium (Duoneb) 3 ml STK-MED ONCE .ROUTE ; Start 02/28/17 at 12 :34; Stop 02/28/17 at 12:35; Status DC Ondansetron HCl (Zofran) 4 mg PRN Q8HRS PRN IV NAUSEA/VOMITING; Start at 14:15; Stop 02/28/17 at 15:01; Status DC Morphine Sulfate 2 mg PRN Q2HR PRN IV PAIN; Start 02/28/17 at 14:15; Stop 04/04 at 23:16; Status DC Sodium Chloride 1,000 ml @ 100 mls/hr Q10H IV Last administered on 03/01/17 19:44; Start 02/28/17 at 15:00; Stop 03/01/17 at 14:59; Status DC Magnesium Sulfate/ Dextrose 50 ml @ 10 mls/hr 1X ONCE IV Last administered on 02/28/17 15:00; Start 02/28/17 at 15:00; Stop 02/28/17 at 19:59; Status DC Ondansetron HCl (Zofran) 4 mg PRN Q6HRS PRN IV NAUSEA/VOMITING; Start at 15:00; Stop 03/01/17 at 14:59; Status DC Acetaminophen (Tylenol) 500 mg PRN Q6HRS PRN PO MILD PAIN / TEMP Last administered on 03/01/17 20:02; Start 02/28/17 at 15:00 Alprazolam (Xanax) 1 mg PRN BID PRN PO ANXIETY Last administered on 03/01/17 22:17; Start 02/28/17 at 15:00 Ferrous Sulfate (Feosol) 325 mg DAILYWBKFT PO Last administered on 03/02/17 08:32; Start 03/01/17 at 08:00 Lisinopril (Prinivil) 20 mg DAILY PO Last administered on 03/01/17 08:12; Start 02/28/17 at 15:30 Pantoprazole Sodium (Protonix) 40 mg BIDAC PO Last administered on 03/02/17 08:31; Start 02/28/17 at 16:30 Sucralfate (Carafate) 1 gm QIDACHS PO Last administered on 03/02/17 08:31; Start 02/28/17 at 16:30 Tramadol HCl (Ultram) 50 mg PRN Q6HRS PRN PO HEADACHE Last administered on 15:00; Start 02/28/17 at 15:00 Vitamin B Complex (Tryell B) 1 tab DAILY PO Last administered on 03/02/17 08:31 ; Start 03/01/17 at 09:00 Lorazepam (Ativan) 2 mg PRN BID PRN PO ANXIETY Last administered on 03/01/17 08:13; Start 02/28/17 at 15:15 Propranolol HCl (Inderal) 20 mg TID PO Last administered on 03/01/17 22:18; Start 02/28/17 at 15:30 Iohexol (Omnipaque 300 Mg/ml) 100 ml 1X ONCE PO Last administered on 16:19; Start 02/28/17 at 16:00; Stop 02/28/17 at 16:01; Status DC Info (Do NOT chart on this entry -- for MONITORING) 1 each PRN DAILY PRN MC SEE COMMENTS; Start 02/28/17 at 16:00; Stop 03/02/17 at 15:59 Methylprednisolone Sodium Succinate (SOLU-Medrol 125MG VIAL) 125 mg DAILY IV Last administered on 03/01/17 08:12; Start 03/01/17 at 09:00; Stop 03/01/17 at 09:43; Status DC Doxycycline Hyclate (Vibra-Tab) 100 mg BID PO Last administered on 03/02/17 08:31; Start 02/28/17 at 17:00 Nicotine (Nicoderm Cq 21mg) 1 patch PRN DAILY PRN TD SMOKING CESSATION; Start 02/28/17 at 17:00 Thiamine Mononitrate (Vitamin B-1) 100 mg DAILY PO Last administered on 08:31; Start 02/28/17 at 17:30 Folic Acid (Folic Acid) 1 mg DAILY PO Last administered on 03/02/17 08:32; Start 02/28/17 at 17:30 Multivit/ Folic Acid/Iron (Multivitamin ) 1 tab DAILY PO Last administered on 03/02/17 08:32; Start 02/28/17 at 17:30 Ipratropium [place] (Atrovent) 0.5 mg RTQID NEB Last administered on 07:48; Start 02/28/17 at 20:00 Ipratropium [place] (Atrovent) 0.5 mg PRN Q2HR PRN NEB SHORTNESS OF BREATH; Start 02/28/17 at 19:15 Morphine Sulfate 2 mg PRN Q2HR PRN IV SEVERE PAIN Last administered on 06:05; Start 02/28/17 at 23:16; Stop 03/01/17 at 09:43; Status DC Lactobacillus Rhamnosus (Culturelle) 1 cap BID PO Last administered on 08:31; Start 03/01/17 at 21:00 Budesonide (Pulmicort) 0.5 mg RTBID NEB Last administered on 03/02/17 07:48; Start 03/01/17 at 20:00 Budesonide (Pulmicort) 0.5 mg 1X ONCE NEB Last administered on 03/01/17 12: 19; Start 03/01/17 at 09:30; Stop 03/01/17 at 09:31; Status DC Magnesium Sulfate/ Dextrose 100 ml @ 25 mls/hr 1X ONCE IV Last administered on 03/01/17 12:32; Start 03/01/17 at 10:00; Stop 03/01/17 at 13:59; Status DC Methylprednisolone Sodium Succinate (SOLU-Medrol 125MG VIAL) 125 mg BID IV ; Start 03/01/17 at 21:00; Stop 03/01/17 at 21:00; Status DC Diphenhydramine HCl (Benadryl) 50 mg 1X ONCE IVP Last administered on 12:32; Start 03/01/17 at 09:45; Stop 03/01/17 at 09:46; Status DC Diphenhydramine HCl (Benadryl) 25 mg PRN Q6HRS PRN IVP ITCHING; Start at 09:45 Fentanyl Citrate (Fentanyl 2ml Vial) 50 mcg PRN Q2HR PRN IV PAIN; Start at 09:45 Enoxaparin Sodium (Lovenox Per Pharmacy Prophylaxis Dosing) 1 each PRN DAILY PRN MC SEE COMMENTS; Start 03/01/17 at 10:45 Enoxaparin Sodium (Lovenox 40mg Syringe) 40 mg DAILY16 SQ Last administered on 03/01/17 17:32; Start 03/01/17 at 16:00 Prednisone (Prednisone) 40 mg DAILY PO Last administered on 03/02/17t 08:32; Start 03/02/17 at 09:00 Active Scripts Active Pantoprazole Sodium 40 Mg Tablet.dr 40 Mg PO BIDAC Feosol (Ferrous Sulfate) 325 Mg Tablet 325 Mg PO DAILYWBKFT Carafate (Sucralfate) 1 Gm Tablet 1 Tab PO QID B Complex-Folic Acid Tablet (Cyanocobalamin/Fa/Pyridoxine) 1 Each Tablet 1 Each PO DAILY Reported Tramadol Hcl 50 Mg Tablet 50 Mg PO PRN Q6HRS PRN Lorazepam 2 Mg Tablet 2-4 Mg PO PRN BID PRN ALTERNATE WITH ALPRAZOLAM Alprazolam 1 Mg Tablet 1 Mg PO PRN BID PRN ALTERNATE WITH LORAZEPAM Propranolol Hcl 20 Mg Tablet 20 Mg PO TID Lisinopril 20 Mg Tablet 20 Mg PO DAILY Vitals/I & O Vital Sign - Last 24 Hours 03/01/17 03/01/17 03/01/17 03/01/17 10:00 11:00 12:00 12:00 Temp 98.2 98.2 Pulse 74 71 67 Resp 18 B/P (MAP) 83/60 (68) 97/80 (86) 97/84 (88) Pulse Ox 96 100 100 O2 Delivery Room Air Nasal Cannula Room Air Nasal Cannula O2 Flow Rate 3.0 4.0 3.0 03/01/17 03/01/17 03/01/17 03/01/17 12:10 13:00 14:00 15:00 Pulse 77 77 74 Resp B/P (MAP) 126/65 (85) 92/60 (71) 93/78 (83) Pulse Ox 93 100 100 100 O2 Delivery Room Air Nasal Cannula Nasal Cannula Nasal Cannula O2 Flow Rate 3.0 4.0 4.0 03/01/17 03/01/17 03/01/17 03/01/17 15:00 16:00 16:00 16:00 Temp 98.3 98.3 Pulse 76 Resp 18 22 B/P (MAP) 96/85 (89) Pulse Ox 100 100 100 O2 Delivery Nasal Cannula Nasal Cannula Nasal Cannula Room Air O2 Flow Rate 4.0 4.0 4.0 4.0 03/01/17 03/01/17 03/01/17 03/01/17 16:20 17:00 18:00 19:00 Pulse 74 76 78 Resp 20 20 14 B/P (MAP) 104/66 (79) 104/60 (75) 104/60 (75) Pulse Ox 97 100 100 100 O2 Delivery Room Air Nasal Cannula Nasal Cannula Nasal Cannula O2 Flow Rate 4.0 2.0 4.0 03/01/17 03/01/17 03/01/17 03/01/17 20:00 20:00 20:09 20:11 Temp 98.3 98.3 Pulse 80 Resp 16 B/P (MAP) 96/58 (71) Pulse Ox 100 93 93 O2 Delivery Room Air Nasal Cannula Room Air Room Air O2 Flow Rate 2.0 4.0 03/01/17 03/01/17 03/01/17 03/01/17 21:00 22:00 22:18 23:00 Pulse 78 76 78 72 Resp 24 15 23 B/P (MAP) 94/56 (69) 113/65 (81) 113/65 106/66 (79) Pulse Ox 97 97 96 O2 Delivery Nasal Cannula Nasal Cannula Nasal Cannula O2 Flow Rate 2.0 2.0 2.0 03/02/17 03/02/17 03/02/17 03/02/17 00:00 00:00 01:00 02:00 Temp 98.0 98.0 Pulse 80 74 75 Resp 23 16 15 B/P (MAP) 129/65 (86) 105/61 (76) 96/57 (70) Pulse Ox 96 97 96 O2 Delivery Room Air Nasal Cannula Nasal Cannula Nasal Cannula O2 Flow Rate 2.0 2.0 4.0 4.0 03/02/17 03/02/17 03/02/17 03/02/17 03:00 04:00 04:00 05:00 Temp 98.0 98.0 Pulse 69 68 76 Resp 16 12 18 B/P (MAP) 104/66 (79) 99/71 (80) 93/56 (68) Pulse Ox 99 100 99 O2 Delivery Nasal Cannula Nasal Cannula Room Air Nasal Cannula O2 Flow Rate 4.0 4.0 4.0 4.0 03/02/17 03/02/17 03/02/17 03/02/17 06:00 07:48 08:33 08:33 Pulse 66 64 64 Resp 14 B/P (MAP) 94/59 (71) 98/66 98/66 Pulse Ox 99 99 O2 Delivery Nasal Cannula Nasal Cannula O2 Flow Rate 4.0 3.5 Intake and Output 03/01/17 03/01/17 03/02/17 15:00 23:00 07:00 Intake Total 1363 ml 941 ml Balance 1363 ml 941 ml LUZ MORLEY MD Mar 02, 2017 09:06
[2017-03-02] MEDS: oxyCODONE IR 5 MG TABLET PO PRN ×3 (09:33→19:47)
[2017-03-02] MEDS: guaiFENesin DM 200MG/20MG 10 ML SYRUP PO PRN (10:23)
[2017-03-02] MEDS: BENZONATATE 100 MG CAPSULE. PO SCH ×3 (10:23→20:43)
--- NOTE | 2017-03-02 10:55 | PDOC ---
PULMONARY PROGRESS NOTES Subjective still with extensive sc air no soa Vitals Vital Signs Date Time Temp Pulse Resp B/P (MAP) Pulse Ox O2 Delivery O2 Flow Rate FiO2 03/02/17 10:28 95 Room Air 03/02/17 10:00 80 24 94/72 (79) 4.0 03/02/17 08:00 98.0 98.0 Comments SWOLLEN EYELIDS, FACE, SC AIR General: Alert, No acute distress Lungs: Other (DECREASE BS) Cardiovascular: S1 Abdomen: Soft Neuro Exam: Alert Extremities: Other (1+EDEMA) Skin: Warm Labs Laboratory Tests Test 02/28/17 12:47 02/28/17 13:40 03/01/17 06:00 03/01/17 07:11 White Blood Count 10.6 x10^3/uL (4.0-11.0) 6.5 x10^3/uL (4.0-11.0) Red Blood Count 3.91 x10^6/uL (3.50-5.40) 3.60 x10^6/uL (3.50-5.40) Hemoglobin 13.3 g/dL (12.0-15.5) 12.5 g/dL (12.0-15.5) Hematocrit 40.5 % (36.0-47.0) 37.0 % (36.0-47.0) Mean Corpuscular Volume 104 fL (79-100) 103 fL (79-100) Mean Corpuscular Hemoglobin 34 pg (25-35) 35 pg (25-35) Mean Corpuscular Hemoglobin Concent 33 g/dL (31-37) 34 g/dL (31-37) Red Cell Distribution Width 16.1 % (11.5-14.5) 15.8 % (11.5-14.5) Platelet Count 237 x10^3/uL (140-400) 86 x10^3/uL (140-400) Neutrophils (%) (Auto) 38 % (31-73) 53 % (31-73) Lymphocytes (%) (Auto) 56 % (24-48) 40 % (24-48) Monocytes (%) (Auto) 4 % (0-9) 4 % (0-9) Eosinophils (%) (Auto) 0 % (0-3) 1 % (0-3) Basophils (%) (Auto) 2 % (0-3) 2 % (0-3) Neutrophils # (Auto) 4.0 x10^3uL (1.8-7.7) 3.1 x10^3uL (1.8-7.7) Lymphocytes # (Auto) 6.0 x10^3/uL (1.0-4.8) 3.1 x10^3/uL (1.0-4.8) Monocytes # (Auto) 0.4 x10^3/uL (0.0-1.1) 0.2 x10^3/uL (0.0-1.1) Eosinophils # (Auto) 0.0 x10^3/uL (0.0-0.7) 0.0 x10^3/uL (0.0-0.7) Basophils # (Auto) 0.2 x10^3/uL (0.0-0.2) 0.1 x10^3/uL (0.0-0.2) Sodium Level 127 mmol/L (136-145) 138 mmol/L (136-145) Potassium Level mmol/L (3.5-5.1) 5.1 mmol/L (3.5-5.1) 3.6 mmol/L (3.5-5.1) Chloride Level 92 mmol/L (98-107) 103 mmol/L (98-107) Carbon Dioxide Level 22 mmol/L (21-32) 26 mmol/L (21-32) Anion Gap 13 (6-14) 9 (6-14) Blood Urea Nitrogen 11 mg/dL (7-20) 6 mg/dL (7-20) Creatinine 0.5 mg/dL (0.6-1.0) 0.5 mg/dL (0.6-1.0) Estimated GFR (Cockcroft-Gault) 131.1 131.1 Glucose Level 168 mg/dL (70-99) 165 mg/dL (70-99) Calcium Level 8.2 mg/dL (8.5-10.1) 8.2 mg/dL (8.5-10.1) Total Bilirubin 3.0 mg/dL (0.2-1.0) Direct Bilirubin 0.8 mg/dL (0.0-0.2) Aspartate Amino Transf (AST/SGOT) 217 U/L (15-37) Alanine Aminotransferase (ALT/SGPT) 100 U/L (14-59) Alkaline Phosphatase 308 U/L (46-116) Troponin I Quantitative < 0.017 ng/mL (0.000-0.055) Total Protein 7.0 g/dL (6.4-8.2) Albumin 3.0 g/dL (3.4-5.0) Lipase 14 U/L (73-393) Magnesium Level 1.3 mg/dL (1.8-2.4) Nasal Screen MRSA (PCR) Negative (Negative) Segmented Neutrophils % 69 % (35-66) Band Neutrophils % 14 % (0-9) Lymphocytes % 14 % (24-48) Monocytes % 2 % (0-10) Eosinophils % 1 % (0-5) Platelet Estimate Decreased (ADEQUATE) Hypochromasia Slight Anisocytosis Slight Thyroid Stimulating Hormone (TSH) 6.113 uIU/mL (0.358-3.74) Test 03/02/17 05:00 03/02/17 05:30 Sodium Level 140 mmol/L (136-145) Potassium Level 3.5 mmol/L (3.5-5.1) Chloride Level 107 mmol/L (98-107) Carbon Dioxide Level 27 mmol/L (21-32) Anion Gap 6 (6-14) Blood Urea Nitrogen 4 mg/dL (7-20) Creatinine 0.4 mg/dL (0.6-1.0) Estimated GFR (Cockcroft-Gault) 169.7 BUN/Creatinine Ratio 10 (6-20) Glucose Level 91 mg/dL (70-99) Calcium Level 8.0 mg/dL (8.5-10.1) Total Bilirubin 3.3 mg/dL (0.2-1.0) Aspartate Amino Transf (AST/SGOT) 162 U/L (15-37) Alanine Aminotransferase (ALT/SGPT) 82 U/L (14-59) Alkaline Phosphatase 214 U/L (46-116) Total Protein 5.5 g/dL (6.4-8.2) Albumin 2.3 g/dL (3.4-5.0) Albumin/Globulin Ratio 0.7 (1.0-1.7) White Blood Count 5.8 x10^3/uL (4.0-11.0) Red Blood Count 2.99 x10^6/uL (3.50-5.40) Hemoglobin 10.5 g/dL (12.0-15.5) Hematocrit 31.0 % (36.0-47.0) Mean Corpuscular Volume 104 fL (79-100) Mean Corpuscular Hemoglobin 35 pg (25-35) Mean Corpuscular Hemoglobin Concent 34 g/dL (31-37) Red Cell Distribution Width 16.4 % (11.5-14.5) Platelet Count 78 x10^3/uL (140-400) Neutrophils (%) (Auto) 53 % (31-73) Lymphocytes (%) (Auto) 40 % (24-48) Monocytes (%) (Auto) 4 % (0-9) Eosinophils (%) (Auto) 2 % (0-3) Basophils (%) (Auto) 1 % (0-3) Neutrophils # (Auto) 3.1 x10^3uL (1.8-7.7) Lymphocytes # (Auto) 2.3 x10^3/uL (1.0-4.8) Monocytes # (Auto) 0.3 x10^3/uL (0.0-1.1) Eosinophils # (Auto) 0.1 x10^3/uL (0.0-0.7) Basophils # (Auto) 0.0 x10^3/uL (0.0-0.2) Laboratory Tests Test 03/02/17 05:00 03/02/17 05:30 Sodium Level 140 mmol/L (136-145) Potassium Level 3.5 mmol/L (3.5-5.1) Chloride Level 107 mmol/L (98-107) Carbon Dioxide Level 27 mmol/L (21-32) Anion Gap 6 (6-14) Blood Urea Nitrogen 4 mg/dL (7-20) Creatinine 0.4 mg/dL (0.6-1.0) Estimated GFR (Cockcroft-Gault) 169.7 BUN/Creatinine Ratio 10 (6-20) Glucose Level 91 mg/dL (70-99) Calcium Level 8.0 mg/dL (8.5-10.1) Total Bilirubin 3.3 mg/dL (0.2-1.0) Aspartate Amino Transf (AST/SGOT) 162 U/L (15-37) Alanine Aminotransferase (ALT/SGPT) 82 U/L (14-59) Alkaline Phosphatase 214 U/L (46-116) Total Protein 5.5 g/dL (6.4-8.2) Albumin 2.3 g/dL (3.4-5.0) Albumin/Globulin Ratio 0.7 (1.0-1.7) White Blood Count 5.8 x10^3/uL (4.0-11.0) Red Blood Count 2.99 x10^6/uL (3.50-5.40) Hemoglobin 10.5 g/dL (12.0-15.5) Hematocrit 31.0 % (36.0-47.0) Mean Corpuscular Volume 104 fL (79-100) Mean Corpuscular Hemoglobin 35 pg (25-35) Mean Corpuscular Hemoglobin Concent 34 g/dL (31-37) Red Cell Distribution Width 16.4 % (11.5-14.5) Platelet Count 78 x10^3/uL (140-400) Neutrophils (%) (Auto) 53 % (31-73) Lymphocytes (%) (Auto) 40 % (24-48) Monocytes (%) (Auto) 4 % (0-9) Eosinophils (%) (Auto) 2 % (0-3) Basophils (%) (Auto) 1 % (0-3) Neutrophils # (Auto) 3.1 x10^3uL (1.8-7.7) Lymphocytes # (Auto) 2.3 x10^3/uL (1.0-4.8) Monocytes # (Auto) 0.3 x10^3/uL (0.0-1.1) Eosinophils # (Auto) 0.1 x10^3/uL (0.0-0.7) Basophils # (Auto) 0.0 x10^3/uL (0.0-0.2) Medications Active Scripts Medications Dose Route/Sig Max Daily Dose Days Date Category Dose Instructions Pantoprazole Sodium 40 Mg Tablet.dr 40 Mg PO BIDAC 08/25/15 Rx Feosol (Ferrous Sulfate) 325 Mg Tablet 325 Mg PO [id number] 08/25/15 Rx Carafate (Sucralfate) 1 Gm Tablet 1 Tab PO QID 08/20/15 Rx Tramadol Hcl 50 Mg Tablet 50 Mg PO PRN Q6HRS PRN 07/03/15 Reported Lorazepam 2 Mg Tablet 2-4 Mg PO PRN BID PRN 07/03/15 Reported ALTERNATE WITH ALPRAZOLAM B Complex-Folic Acid Tablet (Cyanocobalamin/Fa/Pyridoxine) 1 Each Tablet 1 Each PO DAILY 04/05/15 Rx Alprazolam 1 Mg Tablet 1 Mg PO PRN BID PRN 05/01/13 Reported ALTERNATE WITH LORAZEPAM Propranolol Hcl 20 Mg Tablet 20 Mg PO TID 05/01/13 Reported Lisinopril 20 Mg Tablet 20 Mg PO DAILY 05/01/13 Reported Impression . 1. Spontaneous pneumothoraces suspect secondary to forceful cough and Valsalva with possible underlying emphysema. 2. Left upper lobe collapse, possible central obstruction VS MUCOUS PLUG 3. Severe extensive subcutaneous emphysema. 4. Pneumomediastinum.tiny PTX 5. Acute exacerbation of chronic obstructive pulmonary disease. 6. Paroxysmal coughing spells. 7. Hyponatremia. 8. Elevated liver chemistries secondary to alcoholism. 9. Mild to moderate protein deficiency, protein malnutrition. Plan . 1. No intervention. Air will slowly reabsorb itself/ f/u CXR to make sure PTX is not enlarging. so far stable on CXR 2. Oxygen 3. cough suppressants 4. Monitor liver chemistries. 5. The patient instructed on the importance of discontinuing tobacco use. 6. Nebulized treatments. 7. Antibiotics. 8. Solu-Medrol, taper off. MARQUIS KRUGER MD Mar 02, 2017 10:55
[2017-03-02] MEDS: LORazepam 1 MG TABLET PO PRN (12:37)
[2017-03-02 14:24] LABS: HEP A IGM ABDY Negative (Negative)
[2017-03-02] MEDS: ENOXAPARIN 40 MG/0.4 ML SYRINGE. SQ SCH (16:25)
[2017-03-02] MEDS: ALPRAZolam 1 MG TABLET PO PRN (19:47)
[2017-03-03] VITALS (15 sets, daily range): BP systolic 109–165; BP diastolic 62–103
[2017-03-03] MEDS: ALPRAZolam 1 MG TABLET PO PRN ×2 (06:46→16:17)
[2017-03-03] MEDS: HYDROcodone/CHLORPHEN POLIS 5 ML SUS.ER.12H PO PRN ×2 (06:46→19:56)
[2017-03-03] MEDS: oxyCODONE IR 5 MG TABLET PO PRN ×4 (06:46→19:06)
[2017-03-03] MEDS: guaiFENesin DM 200MG/20MG 10 ML SYRUP PO PRN (07:13)
[2017-03-03] MEDS: BUDESONIDE 0.5 MG/2 ML NEBU. NEB SCH ×2 (07:24→19:52)
[2017-03-03] MEDS: IPRATROPIUM BROMIDE 0.5 MG/2.5 ML NEBU. NEB SCH ×4 (07:25→19:52)
--- NOTE | 2017-03-03 08:10 | RAD ---
Portable chest, 03/03/2017: History: Follow-up pneumomediastinum Comparison is made to yesterday's study. There is ongoing extensive subcutaneous emphysema. There appears to be mild residual pneumomediastinum. There is a faint oblique line projected over the right upper chest which may represent a displaced pleural stripe due to a small pneumothorax. Evaluation is again compromised by the extensive overlying soft tissue lucencies. In retrospect this finding was also present on yesterday's study. There are mild residual patchy infiltrates laterally in the left lower chest. There is mild linear atelectasis medially in the right base. Similar findings were present on yesterday's study. There is slight blunting of left lateral costophrenic angle. No large pleural effusion is seen. IMPRESSION: 1. Unchanged extensive bilateral subcutaneous emphysema and mild pneumomediastinum. 2. Probable small, stable right apical pneumothorax. 3. Mild ongoing bibasilar atelectasis/infiltrate.
[2017-03-03] MEDS: THIAMINE 100 MG TABLET. PO SCH (08:19)
[2017-03-03] MEDS: FERROUS SULFATE 325 MG TABLET. PO SCH (08:19)
[2017-03-03] MEDS: LISINOPRIL 20 MG TABLET PO SCH (08:19)
[2017-03-03] MEDS: SUCRALFATE 1 GM TABLET. PO SCH ×4 (08:19→19:57)
[2017-03-03] MEDS: BENZONATATE 100 MG CAPSULE. PO SCH ×3 (08:19→19:57)
[2017-03-03] MEDS: FOLIC ACID 1 MG TABLET. PO SCH (08:19)
[2017-03-03] MEDS: PRENATAL MULTIVITAMIN TABLET. PO SCH (08:19)
[2017-03-03] MEDS: VITAMIN B COMPLEX TABLET. PO SCH (08:20)
[2017-03-03] MEDS: PANTOPRAZOLE 40 MG TABLET.DR. PO SCH ×2 (08:20→16:17)
[2017-03-03] MEDS: predniSONE 20 MG TABLET PO SCH (08:20)
[2017-03-03] MEDS: LACTOBACILLUS RHAMNOSUS GG 1 CAPSULE. PO SCH ×2 (08:20→19:57)
[2017-03-03] MEDS: PROPRANOLOL 10 MG TABLET. PO SCH ×3 (08:20→19:56)
[2017-03-03] MEDS: DOXYCYCLINE HYCLATE 100 MG TABLET PO SCH ×2 (08:20→19:56)
[2017-03-03] MEDS ORDERED: GUAI5SYR PO (09:54)
[2017-03-03] MEDS ORDERED: DOXY100T PO (09:54)
[2017-03-03] MEDS ORDERED: BENZ-8 PO (09:54)
[2017-03-03] MEDS ORDERED: HYDROcodone/CHLORPHEN POLIS PO (09:54)
[2017-03-03] MEDS ORDERED: PRED-220 PO (09:54)
--- NOTE | 2017-03-03 11:19 | PDOC ---
PULMONARY PROGRESS NOTES Subjective IMPROVING extensive sc air no soa Vitals Vital Signs Date Time Temp Pulse Resp B/P (MAP) Pulse Ox O2 Delivery O2 Flow Rate FiO2 03/03/17 10:22 21 Room Air 03/03/17 10:00 81 24 127/84 (98) 03/03/17 08:00 98.4 98.4 03/03/17 06:46 2.0 Comments SWOLLEN EYELIDS, FACE, SC AIR General: Alert, No acute distress Lungs: Other (DECREASE BS) Cardiovascular: S1 Abdomen: Soft Neuro Exam: Alert Extremities: Other (1+EDEMA) Skin: Warm Labs Laboratory Tests Test 03/02/17 05:00 03/02/17 05:30 03/02/17 05:50 Sodium Level 140 mmol/L (136-145) Potassium Level 3.5 mmol/L (3.5-5.1) Chloride Level 107 mmol/L (98-107) Carbon Dioxide Level 27 mmol/L (21-32) Anion Gap 6 (6-14) Blood Urea Nitrogen 4 mg/dL (7-20) Creatinine 0.4 mg/dL (0.6-1.0) Estimated GFR (Cockcroft-Gault) 169.7 BUN/Creatinine Ratio 10 (6-20) Glucose Level 91 mg/dL (70-99) Calcium Level 8.0 mg/dL (8.5-10.1) Total Bilirubin 3.3 mg/dL (0.2-1.0) Aspartate Amino Transf (AST/SGOT) 162 U/L (15-37) Alanine Aminotransferase (ALT/SGPT) 82 U/L (14-59) Alkaline Phosphatase 214 U/L (46-116) Total Protein 5.5 g/dL (6.4-8.2) Albumin 2.3 g/dL (3.4-5.0) Albumin/Globulin Ratio 0.7 (1.0-1.7) White Blood Count 5.8 x10^3/uL (4.0-11.0) Red Blood Count 2.99 x10^6/uL (3.50-5.40) Hemoglobin 10.5 g/dL (12.0-15.5) Hematocrit 31.0 % (36.0-47.0) Mean Corpuscular Volume 104 fL (79-100) Mean Corpuscular Hemoglobin 35 pg (25-35) Mean Corpuscular Hemoglobin Concent 34 g/dL (31-37) Red Cell Distribution Width 16.4 % (11.5-14.5) Platelet Count 78 x10^3/uL (140-400) Neutrophils (%) (Auto) 53 % (31-73) Lymphocytes (%) (Auto) 40 % (24-48) Monocytes (%) (Auto) 4 % (0-9) Eosinophils (%) (Auto) 2 % (0-3) Basophils (%) (Auto) 1 % (0-3) Neutrophils # (Auto) 3.1 x10^3uL (1.8-7.7) Lymphocytes # (Auto) 2.3 x10^3/uL (1.0-4.8) Monocytes # (Auto) 0.3 x10^3/uL (0.0-1.1) Eosinophils # (Auto) 0.1 x10^3/uL (0.0-0.7) Basophils # (Auto) 0.0 x10^3/uL (0.0-0.2) Hepatitis A IgM Antibody Negative (Negative) Hepatitis B Surface Antigen Negative (Negative) Hepatitis B Core IgM Antibody Negative (Negative) Hepatitis C Antibody <0.1 s/co ratio Medications Active Scripts Medications Dose Route/Sig Max Daily Dose Days Date Category Dose Instructions Pantoprazole Sodium 40 Mg Tablet.dr 40 Mg PO BIDAC 08/25/15 Rx Feosol (Ferrous Sulfate) 325 Mg Tablet 325 Mg PO DAILYWBKFT 08/25/15 Rx Carafate (Sucralfate) 1 Gm Tablet 1 Tab PO QID 08/20/15 Rx Tramadol Hcl 50 Mg Tablet 50 Mg PO PRN Q6HRS PRN 07/03/15 Reported Lorazepam 2 Mg Tablet 2-4 Mg PO PRN BID PRN 07/03/15 Reported ALTERNATE WITH ALPRAZOLAM B Complex-Folic Acid Tablet (Cyanocobalamin/Fa/Pyridoxine) 1 Each Tablet 1 Each PO DAILY 04/05/15 Rx Alprazolam 1 Mg Tablet 1 Mg PO PRN BID PRN 05/01/13 Reported ALTERNATE WITH LORAZEPAM Propranolol Hcl 20 Mg Tablet 20 Mg PO TID 05/01/13 Reported Lisinopril 20 Mg Tablet 20 Mg PO DAILY 05/01/13 Reported Impression . 1. Spontaneous pneumothoraces suspect secondary to forceful cough and Valsalva with possible underlying emphysema. 2. Left upper lobe collapse, possible central obstruction VS MUCOUS PLUG 3. Severe extensive subcutaneous emphysema. 4. Pneumomediastinum.tiny PTX RUL 5. Acute exacerbation of chronic obstructive pulmonary disease. 6. Paroxysmal coughing spells. 7. Hyponatremia. 8. Elevated liver chemistries secondary to alcoholism. 9. Mild to moderate protein deficiency, protein malnutrition. Plan . 1. No intervention. Air will slowly reabsorb itself/ f/u CXR to make sure PTX is not enlarging. so far stable on CXR/ Small PTX seen in RUL today 2. Oxygen 3. cough suppressants 4. Monitor liver chemistries. 5. The patient instructed on the importance of discontinuing tobacco use. 6. Nebulized treatments. 7. Antibiotics. 8. Solu-Medrol, taper off. MARQUIS KRUGER MD Mar 03, 2017 11:19
--- NOTE | 2017-03-03 12:56 | PDOC ---
PROGRESS NOTES Chief Complaint Chief Complaint marked facial swelling, free air from pneumomediastinum Small apical pneumothoraces, 1-2 % - conservative mx for now Left 5th rib fx, acute; s/p fall Obesity tobacco use disorder edema of neck, face, arms Hyponatremia - 127 Anaphylaxis likely to bactrim - transaminitis, History of Present Illness History of Present Illness Admitted ICU, able to swallow, will transfer out of ICU, cont current, much improved, Vitals Vitals Vital Signs Date Time Temp Pulse Resp B/P (MAP) Pulse Ox O2 Delivery O2 Flow Rate FiO2 03/03/17 12:26 Room Air 03/03/17 12:00 98.0 68 18 156/88 (110) 92 98.0 03/03/17 06:46 2.0 Physical Exam General: Alert, Oriented X3, No acute distress Heart: Regular rate, Normal S1, Normal S2 Lungs: Other (DECREASE BS) Abdomen: Soft, No tenderness Extremities: No edema Skin: No rashes, No significant lesion Review of Systems Review of Systems no n.v.d' still facial pain, chest, to skin Assessment and Plan Assessmemt and Plan Problems Medical Problems: (1) Anaphylactic reaction Status: Acute (2) Subcutaneous emphysema Status: Acute Problems: Comment Review of Relevant I have reviewed the following items yu (where applicable) has been applied. Labs Laboratory Tests Test 03/02/17 05:00 03/02/17 05:30 03/02/17 05:50 Sodium Level 140 mmol/L (136-145) Potassium Level 3.5 mmol/L (3.5-5.1) Chloride Level 107 mmol/L (98-107) Carbon Dioxide Level 27 mmol/L (21-32) Anion Gap 6 (6-14) Blood Urea Nitrogen 4 mg/dL (7-20) Creatinine 0.4 mg/dL (0.6-1.0) Estimated GFR (Cockcroft-Gault) 169.7 BUN/Creatinine Ratio 10 (6-20) Glucose Level 91 mg/dL (70-99) Calcium Level 8.0 mg/dL (8.5-10.1) Total Bilirubin 3.3 mg/dL (0.2-1.0) Aspartate Amino Transf (AST/SGOT) 162 U/L (15-37) Alanine Aminotransferase (ALT/SGPT) 82 U/L (14-59) Alkaline Phosphatase 214 U/L (46-116) Total Protein 5.5 g/dL (6.4-8.2) Albumin 2.3 g/dL (3.4-5.0) Albumin/Globulin Ratio 0.7 (1.0-1.7) White Blood Count 5.8 x10^3/uL (4.0-11.0) Red Blood Count 2.99 x10^6/uL (3.50-5.40) Hemoglobin 10.5 g/dL (12.0-15.5) Hematocrit 31.0 % (36.0-47.0) Mean Corpuscular Volume 104 fL (79-100) Mean Corpuscular Hemoglobin 35 pg (25-35) Mean Corpuscular Hemoglobin Concent 34 g/dL (31-37) Red Cell Distribution Width 16.4 % (11.5-14.5) Platelet Count 78 x10^3/uL (140-400) Neutrophils (%) (Auto) 53 % (31-73) Lymphocytes (%) (Auto) 40 % (24-48) Monocytes (%) (Auto) 4 % (0-9) Eosinophils (%) (Auto) 2 % (0-3) Basophils (%) (Auto) 1 % (0-3) Neutrophils # (Auto) 3.1 x10^3uL (1.8-7.7) Lymphocytes # (Auto) 2.3 x10^3/uL (1.0-4.8) Monocytes # (Auto) 0.3 x10^3/uL (0.0-1.1) Eosinophils # (Auto) 0.1 x10^3/uL (0.0-0.7) Basophils # (Auto) 0.0 x10^3/uL (0.0-0.2) Hepatitis A IgM Antibody Negative (Negative) Hepatitis B Surface Antigen Negative (Negative) Hepatitis B Core IgM Antibody Negative (Negative) Hepatitis C Antibody <0.1 s/co ratio Medications Current Medications Methylprednisolone Sodium Succinate (SOLU-Medrol 125MG VIAL) 125 mg 1X ONCE IV Last administered on 02/28/17t 12:08; Start 02/28/17 at 12:15; Stop at 12:16; Status DC Diphenhydramine HCl (Benadryl) 50 mg 1X ONCE IV Last administered on 12:07; Start 02/28/17 at 12:15; Stop 02/28/17 at 12:16; Status DC Famotidine (Pepcid Vial) 20 mg 1X ONCE IVP Last administered on 02/28/17 12: 11; Start 02/28/17 at 12:15; Stop 02/28/17 at 12:16; Status DC Epinephrine HCl (Adrenalin) 0.5 mg 1X ONCE IM Last administered on 02/28/17 12:03; Start 02/28/17 at 12:00; Stop 02/28/17 at 12:04; Status DC Sodium Chloride 1,000 ml @ 1,000 mls/hr Q1H IV Last administered on 12:06; Start 02/28/17 at 12:00; Stop 02/28/17 at 12:59; Status DC Albuterol/ Ipratropium (Duoneb) 3 ml STK-MED ONCE .ROUTE ; Start 02/28/17 at 12 :34; Stop 02/28/17 at 12:35; Status DC Ondansetron HCl (Zofran) 4 mg PRN Q8HRS PRN IV NAUSEA/VOMITING; Start at 14:15; Stop 02/28/17 at 15:01; Status DC Morphine Sulfate 2 mg PRN Q2HR PRN IV PAIN; Start 02/28/17 at 14:15; Stop 04/04 at 23:16; Status DC Sodium Chloride 1,000 ml @ 100 mls/hr Q10H IV Last administered on 03/01/17 19:44; Start 02/28/17 at 15:00; Stop 03/01/17 at 14:59; Status DC Magnesium Sulfate/ Dextrose 50 ml @ 10 mls/hr 1X ONCE IV Last administered on 02/28/17 15:00; Start 02/28/17 at 15:00; Stop 02/28/17 at 19:59; Status DC Ondansetron HCl (Zofran) 4 mg PRN Q6HRS PRN IV NAUSEA/VOMITING; Start at 15:00; Stop 03/01/17 at 14:59; Status DC Acetaminophen (Tylenol) 500 mg PRN Q6HRS PRN PO MILD PAIN / TEMP Last administered on 03/01/17 20:02; Start 02/28/17 at 15:00 Alprazolam (Xanax) 1 mg PRN BID PRN PO ANXIETY Last administered on 03/03/17 06:46; Start 02/28/17 at 15:00 Ferrous Sulfate (Feosol) 325 mg DAILYWBKFT PO Last administered on 03/03/17 08:19; Start 03/01/17 at 08:00 Lisinopril (Prinivil) 20 mg DAILY PO Last administered on 03/03/17 08:19; Start 02/28/17 at 15:30 Pantoprazole Sodium (Protonix) 40 mg BIDAC PO Last administered on 03/03/17 08:20; Start 02/28/17 at 16:30 Sucralfate (Carafate) 1 gm QIDACHS PO Last administered on 03/03/17 12:05; Start 02/28/17 at 16:30 Tramadol HCl (Ultram) 50 mg PRN Q6HRS PRN PO HEADACHE Last administered on 15:00; Start 02/28/17 at 15:00; Stop 03/02/17 at 09:03; Status DC Vitamin B Complex (Tyrell B) 1 tab DAILY PO Last administered on 03/03/17 08:20 ; Start 03/01/17 at 09:00 Lorazepam (Ativan) 2 mg PRN BID PRN PO ANXIETY Last administered on 03/02/17 12:37; Start 02/28/17 at 15:15 Propranolol HCl (Inderal) 20 mg TID PO Last administered on 03/03/17 08:20; Start 02/28/17 at 15:30 Iohexol (Omnipaque 300 Mg/ml) 100 ml 1X ONCE PO Last administered on 16:19; Start 02/28/17 at 16:00; Stop 02/28/17 at 16:01; Status DC Info (Do NOT chart on this entry -- for MONITORING) 1 each PRN DAILY PRN MC SEE COMMENTS; Start 02/28/17 at 16:00; Stop 03/02/17 at 15:59; Status DC Methylprednisolone Sodium Succinate (SOLU-Medrol 125MG VIAL) 125 mg DAILY IV Last administered on 03/01/17 08:12; Start 03/01/17 at 09:00; Stop 03/01/17 at 09:43; Status DC Doxycycline Hyclate (Vibra-Tab) 100 mg BID PO Last administered on 03/03/17 08:20; Start 02/28/17 at 17:00 Nicotine (Nicoderm Cq 21mg) 1 patch PRN DAILY PRN TD SMOKING CESSATION; Start 02/28/17 at 17:00 Thiamine Mononitrate (Vitamin B-1) 100 mg DAILY PO Last administered on 08:19; Start 02/28/17 at 17:30 Folic Acid (Folic Acid) 1 mg DAILY PO Last administered on 03/03/17 08:19; Start 02/28/17 at 17:30 Multivit/ Folic Acid/Iron (Multivitamin ) 1 tab DAILY PO Last administered on 03/03/17 08:19; Start 02/28/17 at 17:30 Ipratropium [place] (Atrovent) 0.5 mg RTQID NEB Last administered on 12:25; Start 02/28/17 at 20:00 Ipratropium [place] (Atrovent) 0.5 mg PRN Q2HR PRN NEB SHORTNESS OF BREATH Last administered on 03/02/17 10:28; Start 02/28/17 at 19:15 Morphine Sulfate 2 mg PRN Q2HR PRN IV SEVERE PAIN Last administered on 06:05; Start 02/28/17 at 23:16; Stop 03/01/17 at 09:43; Status DC Lactobacillus Rhamnosus (Culturelle) 1 cap BID PO Last administered on 08:20; Start 03/01/17 at 21:00 Budesonide (Pulmicort) 0.5 mg RTBID NEB Last administered on 03/03/17 07:24; Start 03/01/17 at 20:00 Budesonide (Pulmicort) 0.5 mg 1X ONCE NEB Last administered on 03/01/17 12: 19; Start 03/01/17 at 09:30; Stop 03/01/17 at 09:31; Status DC Magnesium Sulfate/ Dextrose 100 ml @ 25 mls/hr 1X ONCE IV Last administered on 03/01/17 12:32; Start 03/01/17 at 10:00; Stop 03/01/17 at 13:59; Status DC Methylprednisolone Sodium Succinate (SOLU-Medrol 125MG VIAL) 125 mg BID IV ; Start 03/01/17 at 21:00; Stop 03/01/17 at 21:00; Status DC Diphenhydramine HCl (Benadryl) 50 mg 1X ONCE IVP Last administered on 12:32; Start 03/01/17 at 09:45; Stop 03/01/17 at 09:46; Status DC Diphenhydramine HCl (Benadryl) 25 mg PRN Q6HRS PRN IVP ITCHING; Start at 09:45 Fentanyl Citrate (Fentanyl 2ml Vial) 50 mcg PRN Q2HR PRN IV PAIN; Start at 09:45 Enoxaparin Sodium (Lovenox Per Pharmacy Prophylaxis Dosing) 1 each PRN DAILY PRN MC SEE COMMENTS; Start 03/01/17 at 10:45 Enoxaparin Sodium (Lovenox 40mg Syringe) 40 mg DAILY16 SQ Last administered on 03/02/17 16:25; Start 03/01/17 at 16:00 Prednisone (Prednisone) 40 mg DAILY PO Last administered on 03/02/17 08:32; Start 03/02/17 at 09:00; Stop 03/02/17 at 09:03; Status DC Prednisone (Prednisone) 30 mg DAILY PO Last administered on 03/03/17 08:20; Start 03/03/17 at 09:00 Oxycodone HCl (Roxicodone) 5 mg PRN Q4HRS PRN PO PAIN Last administered on 12:05; Start 03/02/17 at 09:15 Benzonatate (Tessalon Perle) 100 mg [id number] PO Last administered on 03/03/17 08:19; Start 03/02/17 at 10:30 Guaifenesin (Robitussin Dm) 10 ml PRN Q6HRS PRN PO COUGH Last administered on 03/03/17 07:13; Start 03/02/17 at 10:15 Chlorphenir/ Hydrocodone Polistirex (Tussionex) 5 ml PRN Q12HR PRN PO COUGH Last administered on 03/03/17t 06:46; Start 03/02/17 at 11:00 Active Scripts Active [HYDROcodone/CHLORPHEN POLIS] 5 ML Rosetta.er.12h 5 Ml PO PRN Q12HR PRN Pantoprazole Sodium 40 Mg Tablet.dr 40 Mg PO BIDAC Feosol (Ferrous Sulfate) 325 Mg Tablet 325 Mg PO DAILYWBKFT Carafate (Sucralfate) 1 Gm Tablet 1 Tab PO QID B Complex-Folic Acid Tablet (Cyanocobalamin/Fa/Pyridoxine) 1 Each Tablet 1 Each PO DAILY Reported Tramadol Hcl 50 Mg Tablet 50 Mg PO PRN Q6HRS PRN Lorazepam 2 Mg Tablet 2-4 Mg PO PRN BID PRN ALTERNATE WITH ALPRAZOLAM Alprazolam 1 Mg Tablet 1 Mg PO PRN BID PRN ALTERNATE WITH LORAZEPAM Propranolol Hcl 20 Mg Tablet 20 Mg PO TID Lisinopril 20 Mg Tablet 20 Mg PO DAILY Vitals/I & O Vital Sign - Last 24 Hours 03/02/17 03/02/17 03/02/17 03/02/17 13:00 13:17 14:00 14:00 Pulse 84 86 86 Resp 24 24 B/P (MAP) 105/66 (79) 108/74 108/74 (85) Pulse Ox 93 95 95 O2 Delivery Room Air Room Air Room Air 03/02/17 03/02/17 03/02/17 03/02/17 15:00 15:41 15:41 16:00 Pulse 83 Resp 24 B/P (MAP) 111/81 (91) Pulse Ox 95 95 O2 Delivery Room Air Room Air Room Air Room Air 03/02/17 03/02/17 03/02/17 03/02/17 16:00 17:00 18:00 19:00 Temp 98.8 98.8 Pulse 80 86 92 90 Resp 24 23 25 16 B/P (MAP) 118/77 (91) 136/83 (100) 107/76 (86) 111/68 (82) Pulse Ox 93 92 93 94 O2 Delivery Room Air Room Air Room Air Room Air 03/02/17 03/02/17 03/02/17 03/02/17 19:41 19:47 20:00 20:00 Temp 98.4 98.4 Pulse 82 Resp 21 20 Pulse Ox 94 98 98 O2 Delivery Room Air Room Air Room Air Room Air 03/02/17 03/02/17 03/02/17 03/02/17 20:44 20:47 21:00 22:00 Pulse 95 85 75 Resp 22 16 16 B/P (MAP) 123/68 137/82 (100) 134/90 (105) Pulse Ox 96 98 92 O2 Delivery Room Air Room Air O2 Flow Rate 2.0 03/02/17 03/02/17 03/02/17 03/03/17 23:00 23:59 23:59 01:07 Temp 98.6 98.6 Pulse 73 70 72 Resp 18 22 18 B/P (MAP) 114/65 (81) 100/69 (79) 165/78 (107) Pulse Ox 96 96 96 O2 Delivery Room Air Room Air Nasal Cannula Room Air O2 Flow Rate 2.0 2.0 2.0 2.0 03/03/17 03/03/17 03/03/17 03/03/17 02:00 03:00 04:00 04:00 Temp 98.2 98.2 Pulse 68 73 71 Resp 20 21 29 B/P (MAP) 154/87 (109) 151/81 (104) 138/78 (98) Pulse Ox 96 96 98 O2 Delivery Room Air Room Air Nasal Cannula Room Air O2 Flow Rate 2.0 2.0 2.0 2.0 03/03/17 03/03/17 03/03/17 03/03/17 05:00 06:00 06:46 06:46 Pulse 73 84 Resp 22 26 20 20 B/P (MAP) 109/89 (96) 135/103 (114) Pulse Ox 98 96 98 93 O2 Delivery Room Air Room Air Nasal Cannula Nasal Cannula O2 Flow Rate 2.0 2.0 2.0 2.0 03/03/17 03/03/17 03/03/17 03/03/17 07:00 07:30 08:00 08:00 Temp 98.4 98.4 Pulse 80 72 Resp 22 16 B/P (MAP) 153/87 (109) 131/87 (102) Pulse Ox 93 94 96 O2 Delivery Room Air Room Air Room Air Room Air 03/03/17 03/03/17 03/03/17 03/03/17 08:19 08:20 08:20 08:21 Pulse 72 72 B/P (MAP) 131/87 131/87 O2 Delivery Room Air Room Air 03/03/17 03/03/17 03/03/17 03/03/17 09:00 10:00 10:22 12:00 Temp 98.0 98.0 Pulse 83 81 68 Resp 19 24 18 B/P (MAP) 125/84 (98) 127/84 (98) 156/88 (110) Pulse Ox 93 94 21 92 O2 Delivery Room Air Room Air Room Air Room Air 03/03/17 03/03/17 12:05 12:26 O2 Delivery Room Air Room Air Intake and Output 03/02/17 03/02/17 03/03/17 15:00 23:00 07:00 Intake Total 240 ml 740 ml Output Total 250 ml 165 ml Balance -10 ml 740 ml -165 ml LUZ MORLEY MD Mar 03, 2017 12:56
[2017-03-03] MEDS: ENOXAPARIN 40 MG/0.4 ML SYRINGE. SQ SCH (16:17)
[2017-03-03] MEDS: LORazepam 1 MG TABLET PO PRN (21:39)
[2017-03-04 03:00] VITALS: BP 157/69
[2017-03-04] MEDS: PANTOPRAZOLE 40 MG TABLET.DR. PO SCH (06:13)
[2017-03-04] MEDS: SUCRALFATE 1 GM TABLET. PO SCH ×2 (06:14→13:52)
[2017-03-04] MEDS: oxyCODONE IR 5 MG TABLET PO PRN ×2 (06:19→13:52)
[2017-03-04 07:00] VITALS: BP 112/64
[2017-03-04] MEDS: BUDESONIDE 0.5 MG/2 ML NEBU. NEB SCH (07:20)
[2017-03-04] MEDS: IPRATROPIUM BROMIDE 0.5 MG/2.5 ML NEBU. NEB SCH ×2 (07:21→11:11)
[2017-03-04] MEDS: HYDROcodone/CHLORPHEN POLIS 5 ML SUS.ER.12H PO PRN (07:42)
[2017-03-04] MEDS: ALPRAZolam 1 MG TABLET PO PRN (09:06)
[2017-03-04] MEDS: FOLIC ACID 1 MG TABLET. PO SCH (09:07)
[2017-03-04] MEDS: LISINOPRIL 20 MG TABLET PO SCH (09:07)
[2017-03-04] MEDS: predniSONE 20 MG TABLET PO SCH (09:07)
[2017-03-04] MEDS: PRENATAL MULTIVITAMIN TABLET. PO SCH (09:08)
[2017-03-04] MEDS: FERROUS SULFATE 325 MG TABLET. PO SCH (09:08)
[2017-03-04] MEDS: LACTOBACILLUS RHAMNOSUS GG 1 CAPSULE. PO SCH (09:08)
[2017-03-04] MEDS: DOXYCYCLINE HYCLATE 100 MG TABLET PO SCH (09:08)
[2017-03-04] MEDS: BENZONATATE 100 MG CAPSULE. PO SCH (09:08)
[2017-03-04] MEDS: VITAMIN B COMPLEX TABLET. PO SCH (09:08)
[2017-03-04] MEDS: THIAMINE 100 MG TABLET. PO SCH (09:08)
--- NOTE | 2017-03-04 09:13 | RAD ---
Portable chest, 03/04/2017: History: Follow-up pneumomediastinum Comparison is made to yesterday's study. Extensive subcutaneous emphysema in the chest extending into the neck and abdomen is unchanged. There is ongoing pneumomediastinum which appears to have worsened slightly. The probable small right apical pneumothorax seen on yesterday's study is now only barely visible compatible with interval improvement. Basilar opacities, predominantly on the left, are unchanged. IMPRESSION: 1. Resolving small right pneumothorax. 2. Pneumomediastinum appears to have worsened slightly. 3. No other significant interval change
[2017-03-04] MEDS: PROPRANOLOL 10 MG TABLET. PO SCH ×2 (09:33→13:52)
[2017-03-04] MEDS: guaiFENesin DM 200MG/20MG 10 ML SYRUP PO PRN (09:33)
[2017-03-04 12:00] VITALS: BP 133/87
--- NOTE | 2017-03-04 12:22 | PDOC ---
PULMONARY PROGRESS NOTES Subjective IMPROVING extensive sc air no soa Vitals Vital Signs Date Time Temp Pulse Resp B/P (MAP) Pulse Ox O2 Delivery O2 Flow Rate FiO2 03/04/17 11:12 93 Room Air 03/04/17 09:33 74 157/69 03/04/17 07:42 20 03/04/17 07:00 98.6 98.6 03/03/17 20:25 2.0 Comments SWOLLEN EYELIDS, FACE, SC AIR General: Alert, No acute distress Lungs: Other (crepitus decrease both chest wall, neck) Cardiovascular: S1 Abdomen: Soft Neuro Exam: Alert Extremities: Other (1+EDEMA) Skin: Warm Medications Active Scripts Medications Dose Route/Sig Max Daily Dose Days Date Category Dose Instructions Pantoprazole Sodium 40 Mg Tablet.dr 40 Mg PO BIDAC 08/25/15 Rx Feosol (Ferrous Sulfate) 325 Mg Tablet 325 Mg PO DAILYWBKFT 08/25/15 Rx Carafate (Sucralfate) 1 Gm Tablet 1 Tab PO QID 08/20/15 Rx Tramadol Hcl 50 Mg Tablet 50 Mg PO PRN Q6HRS PRN 07/03/15 Reported Lorazepam 2 Mg Tablet 2-4 Mg PO PRN BID PRN 07/03/15 Reported ALTERNATE WITH ALPRAZOLAM B Complex-Folic Acid Tablet (Cyanocobalamin/Fa/Pyridoxine) 1 Each Tablet 1 Each PO DAILY 04/05/15 Rx Alprazolam 1 Mg Tablet 1 Mg PO PRN BID PRN 05/01/13 Reported ALTERNATE WITH LORAZEPAM Propranolol Hcl 20 Mg Tablet 20 Mg PO TID 05/01/13 Reported Lisinopril 20 Mg Tablet 20 Mg PO DAILY 05/01/13 Reported Impression . 1. Spontaneous pneumothoraces suspect secondary to forceful cough and Valsalva with possible underlying emphysema. 2. Left upper lobe collapse, possible central obstruction VS MUCOUS PLUG (most likely) 3. Severe extensive subcutaneous emphysema. improving 4. Pneumomediastinum.tiny PTX RUL, stable 5. Acute exacerbation of chronic obstructive pulmonary disease. 6. Paroxysmal coughing spells. 7. Hyponatremia. 8. Elevated liver chemistries secondary to alcoholism. 9. Mild to moderate protein deficiency, protein malnutrition. Plan . 1. No intervention. Air will slowly reabsorb itself/ f/u CXR today stable. small RUL PTX is better. 2. Oxygen 3. cough suppressants 4. Monitor liver chemistries. 5. The patient instructed on the importance of discontinuing tobacco use. 6. Nebulized treatments. 7. Antibiotics. 8. ok with dc home . f/u with me in 2-[address] chest in 4-6 weeks to follow up on LITTLE atelectasis MARQUIS KRUGER MD Mar 04, 2017 12:22
--- NOTE | 2017-03-04 12:53 | PDOC3 ---
Discharge Summary [facility] Date of Admission: Feb 28, 2017 Discharge Date: Mar 04, 2017 Admitting Diagnosis marked facial swelling, free air from pneumomediastinum Small apical pneumothoraces, 1-2 % - conservative mx for now Left 5th rib fx, acute; s/p fall Obesity tobacco use disorder edema of neck, face, arms Hyponatremia - 127 Anaphylaxis likely to bactrim - transaminitis, Problems: Final Diagnosis CONSULTS pulm CT Brief Hospital Course Ms. Rice is a 51 old F, smoking, COPD, came for facial swelling, coughing , wheezing. Pt was at home with bf, sitting, coughing for a few days, fell at the lunch table, denies it was severe. Pt was found marked facial swelling, hard to open her left eye, free air from pneumomediastium, small apical pneumothoraces, left 5th rib fx, neck, chest and abd wall all has subcataneous emphysema. pt is improving with suppressing coughing. stable to dc. dc tiem 35min. General: Alert, Oriented X3, No acute distress Heart: Regular rate, Normal S1, Normal S2 Lungs: Other (DECREASE BS) Abdomen: Soft, No tenderness Extremities: No edema Skin: No rashes, No significant lesion face, neck, chest , and anterior abd has swelling and subcataneous emphysema Patient History: FH: COPD (chronic obstructive pulmonary disease) 33 FATHER Family history: Cardiovascular disease (situation) Problems: Disposition home CONDITION AT DISCHARGE: Improved Diet regular Scheduled Benzonatate (Benzonatate), 100 MG PO [id number] Cyanocobalamin/Fa/Pyridoxine (B Complex-Folic Acid Tablet), 1 EACH PO DAILY Doxycycline Hyclate (Doxycycline Hyclate), 100 MG PO BID Ferrous Sulfate (Feosol), 325 MG PO DAILYWBKFT Lisinopril (Lisinopril), 20 MG PO DAILY, (Reported) Pantoprazole Sodium (Pantoprazole Sodium), 40 MG PO BIDAC Prednisone (Prednisone), 10 MG PO UD Propranolol Hcl (Propranolol Hcl), 20 MG PO TID, (Reported) Sucralfate (Carafate), 1 TAB PO QID Scheduled PRN Alprazolam (Alprazolam), 1 MG PO PRN BID PRN for ANXIETY, (Reported) Guaifenesin/Dextromethorphan (Guaifenesin Dm Syrup), 10 ML PO PRN Q6HRS PRN for COUGH Lorazepam (Lorazepam), 2-4 MG PO PRN BID PRN for ANXIETY, (Reported) [HYDROcodone/CHLORPHEN POLIS], 5 ML PO PRN Q12HR PRN for COUGH Discontinued Medications Tramadol Hcl (Tramadol Hcl), 50 MG PO PRN Q6HRS PRN for HEADACHE, (Reported) Follow Up pulm in 2 weeks OSMANI TEE MD Mar 04, 2017 12:53
[2017-03-04 13:52] VITALS: BP 133/87
[2017-03-04] MEDS: LORazepam 1 MG TABLET PO PRN (13:52)
== END 2017-03-04 13:40 | disposition home or self-care (01) | DRG 200 ==
LOC: ER 11:56 → 1 WEST ICU 13:49 → 4 NORTH 03-03 20:25
PROVIDERS: ADMIT Internal Medicine; ATTEND Internal Medicine
DX: J93.83 Other pneumothorax (principal); E44.0 Moderate protein-calorie malnutrition; J98.2 Interstitial emphysema; J44.0 Chronic obstructive pulmonary disease with (acute) lower respiratory infection; J44.1 Chronic obstructive pulmonary disease with (acute) exacerbation; K86.1 Other chronic pancreatitis; E87.1 Hypo-osmolality and hyponatremia; J98.19 Other pulmonary collapse; S22.32XA Fracture of one rib, left side, initial encounter for closed fracture; T88.6XXA Anaphylactic reaction due to adverse effect of correct drug or medicament properly administered, initial encounter; T78.3XXA Angioneurotic edema, initial encounter; W19.XXXA Unspecified fall, initial encounter; J20.9 Acute bronchitis, unspecified; F41.9 Anxiety disorder, unspecified; I10 Essential (primary) hypertension; E66.9 Obesity, unspecified; F10.20 Alcohol dependence, uncomplicated; F17.200 Nicotine dependence, unspecified, uncomplicated; K21.9 Gastro-esophageal reflux disease without esophagitis; Y93.89 Activity, other specified; Y92.89 Other specified places as the place of occurrence of the external cause; Y99.8 Other external cause status; Z91.81 History of falling; Z68.22 Body mass index [BMI] 22.0-22.9, adult; Z90.49 Acquired absence of other specified parts of digestive tract; Z82.5 Family history of asthma and other chronic lower respiratory diseases; Z82.49 Family history of ischemic heart disease and other diseases of the circulatory system; Z80.9 Family history of malignant neoplasm, unspecified; Z88.2 Allergy status to sulfonamides; Z88.8 Allergy status to other drugs, medicaments and biological substances; T37.0X5A Adverse effect of sulfonamides, initial encounter
CPT/HCPCS: 36415; 71010; 71250; 74176; 74220; 80048; 80053; 80074; 80076; 83690; 83735; 84132; 84443; 84484; 85007; 85025; 87641; 93005; 94250; 94640; 94760; 96361; 96372; 96374; 96375; J0171; J1200; J1650; J2270; J2930; J3475; J7030; J7060; J7512; J7626; J7644; Q9967; S0028; 97530; 99285-25

== ENCOUNTER 2017-10-29 11:51 | Inpatient (IN) | payer SELFPAY ==
[2017-10-29 12:01] LABS: POC GLUCOSE 229 mg/dL (70-99)
[2017-10-29 13:26] LABS: ADD MAN DIFF? NO
[2017-10-29 13:28] LABS: BASO % 1 % (0-3); EOS % 1 % (0-3); HEMATOCRIT 36.9 % (36.0-47.0); LYMPH # 1.2 x10^3/uL (1.0-4.8); LYMPH % 19 % (24-48); MEAN CORPUSCULAR HEMOGLOBIN 37 pg (25-35); MEAN CORPUSCULAR HGB CONC 35 g/dL (31-37); MEAN CORPUSCULAR VOLUME 104 fL (79-100); MONO # 0.8 x10^3/uL (0.0-1.1); MONO % 12 % (0-9); NEUT # 4.3 x10^3uL (1.8-7.7); NEUT % 68 % (31-73); RED BLOOD COUNT 3.54 x10^6/uL (3.50-5.40); RED CELL DISTRIBUTION WIDTH 13.7 % (11.5-14.5); WHITE BLOOD COUNT 6.3 x10^3/uL (4.0-11.0)
[2017-10-29 13:29] LABS: PLATELET COUNT 107 x10^3/uL (140-400)
[2017-10-29] MEDS: THIAMINE 100 MG in IV DEXTROSE 5% 50 ML IV (13:36)
[2017-10-29] MEDS: FOLIC ACID 1 MG TABLET. PO (13:36)
[2017-10-29 13:37] LABS: ETHANOL < 10 mg/dL (0-10)
[2017-10-29] MEDS: HALOPERIDOL LACTATE 5 MG/ML VIAL. IM (13:37)
[2017-10-29] MEDS: IV NORMAL SALINE 1000ML BAG 1,000 ML IV ×2 (13:38→16:40)
[2017-10-29 13:39] LABS: ALBUMIN 3.8 g/dL (3.4-5.0); ALK PHOS 214 U/L (46-116); ALT (SGPT) 126 U/L (14-59); ANION GAP 12 (6-14); AST (SGOT) 141 U/L (15-37); BLOOD UREA NITROGEN 6 mg/dL (7-20); BUN/CREATININE RATIO 10 (6-20); CARBON DIOXIDE 25 mmol/L (21-32); CHLORIDE 86 mmol/L (98-107); CREATININE 0.6 mg/dL (0.6-1.0); GFR 105.8; GLUCOSE 197 mg/dL (70-99); LIPASE 53 U/L (73-393); SODIUM 123 mmol/L (136-145); TOTAL BILIRUBIN 2.8 mg/dL (0.2-1.0); TOTAL PROTEIN 7.6 g/dL (6.4-8.2)
[2017-10-29 13:40] LABS: POTASSIUM 2.9 mmol/L (3.5-5.1)
[2017-10-29 13:42] LABS: PROTHROMBIN TIME PATIENT 12.6 SEC (11.7-14.0)
[2017-10-29 13:59] LABS: BARBITURATES NEG (NEG); BENZODIAZEPINES NEG (NEG); BILIRUBIN,URINE NEGATIVE (NEG); CANNABINOIDS NEG (NEG); CLARITY,URINE CLEAR; COCAINE NEG (NEG); COLOR,URINE YELLOW; GLUCOSE,URINE NEGATIVE (NEG); METHADONE NEG (NEG); NITRITE,URINE NEGATIVE (NEG); OPIATES NEG (NEG); PHENCYCLIDINE NEG (NEG); PROTEIN,URINE NEGATIVE (NEG-TRACE); UROBILINOGEN,URINE 0.2 mg/dL (0.2 mg/dL)
[2017-10-29 14:02] LABS: BACTERIA,URINE MODERATE /HPF (0-FEW); RBC,URINE 0 /HPF (0-2); SQUAMOUS EPITHELIAL CELL,UR MANY /LPF; WBC,URINE 0 /HPF (0-4)
[2017-10-29 14:06] LABS: AMPHETAMINE/METHAMPHETAMINE NEG (NEG); ETHANOL, URINE NEG (NEG)
[2017-10-29] MEDS: HALOPERIDOL LACTATE 5 MG/ML VIAL. IVP ×2 (16:35→19:14)
[2017-10-29] MEDS: POTASSIUM CHLORIDE 20 MEQ TABLET.ER. PO (16:36)
[2017-10-29] MEDS: OLANZapine 5 MG TABLET PO (16:37)
[2017-10-29] MEDS ORDERED: OLANZapine IM 10 MG VIAL. IM ×2 (17:30→18:15)
[2017-10-29] MEDS ORDERED: cloNIDine HCL 0.1 MG TABLET PO (17:30)
[2017-10-29] MEDS: POTASSIUM CHLORIDE 40 MEQ in IV NORMAL SALINE 1000ML BAG 1,000 ML IV (18:40)
[2017-10-29] MEDS ORDERED: ONDANSETRON PF 4 MG/2 ML VIAL. IV (19:45)
[2017-10-30] MEDS: HALOPERIDOL LACTATE 5 MG/ML VIAL. IVP ×2 (00:19→07:52)
[2017-10-30] MEDS: POTASSIUM CHLORIDE 10MEQ 100 ML IV ×4 (03:36→07:53)
[2017-10-30 05:32] LABS: ADD MAN DIFF? NO
[2017-10-30 05:44] LABS: BASO % 1 % (0-3); EOS % 1 % (0-3); HEMATOCRIT 28.3 % (36.0-47.0); HEMOGLOBIN 9.7 g/dL (12.0-15.5); LYMPH # 1.2 x10^3/uL (1.0-4.8); LYMPH % 36 % (24-48); MEAN CORPUSCULAR HEMOGLOBIN 36 pg (25-35); MEAN CORPUSCULAR HGB CONC 34 g/dL (31-37); MEAN CORPUSCULAR VOLUME 106 fL (79-100); MONO # 0.6 x10^3/uL (0.0-1.1); MONO % 17 % (0-9); NEUT # 1.6 x10^3uL (1.8-7.7); NEUT % 45 % (31-73); PLATELET COUNT 69 x10^3/uL (140-400); RED BLOOD COUNT 2.67 x10^6/uL (3.50-5.40); RED CELL DISTRIBUTION WIDTH 13.7 % (11.5-14.5); WHITE BLOOD COUNT 3.4 x10^3/uL (4.0-11.0)
[2017-10-30 06:07] LABS: ALBUMIN 2.7 g/dL (3.4-5.0); ALBUMIN/GLOBULIN RATIO 0.9 (1.0-1.7); ALK PHOS 136 U/L (46-116); ALT (SGPT) 83 U/L (14-59); ANION GAP 9 (6-14); AST (SGOT) 105 U/L (15-37); BLOOD UREA NITROGEN 5 mg/dL (7-20); BUN/CREATININE RATIO 8 (6-20); CALCIUM 7.5 mg/dL (8.5-10.1); CARBON DIOXIDE 24 mmol/L (21-32); CHLORIDE 108 mmol/L (98-107); CREATININE 0.6 mg/dL (0.6-1.0); GFR 105.8; GLUCOSE 93 mg/dL (70-99); MAGNESIUM 1.6 mg/dL (1.8-2.4); PHOSPHORUS 3.2 mg/dL (2.6-4.7); POTASSIUM 3.1 mmol/L (3.5-5.1); SODIUM 141 mmol/L (136-145); TOTAL PROTEIN 5.7 g/dL (6.4-8.2)
[2017-10-30] MEDS: diphenhydrAMINE 50 MG/ML VIAL IVP (07:52)
[2017-10-30] MEDS: MULTIVIT INFUSN,ADULT 4,VIT K 10 ML, THIAMINE 100 MG, FOLIC ACID 1 MG in IV NORMAL SALI... IV (08:33)
[2017-10-30] MEDS: NICOTINE 21MG PATCH. TD (11:26)
[2017-10-30] MEDS: BENZONATATE 100 MG CAPSULE. PO ×2 (11:27→22:20)
[2017-10-30 18:11] LABS: MRSA BY PCR Negative (Negative)
[2017-10-30] MEDS: ACETAMINOPHEN 325 MG TABLET. PO (20:12)
[2017-10-31 04:05] LABS: ADD MAN DIFF? NO
[2017-10-31 04:17] LABS: BILIRUBIN,URINE NEGATIVE (NEG); CLARITY,URINE CLEAR; COLOR,URINE YELLOW; GLUCOSE,URINE NEGATIVE (NEG); NITRITE,URINE NEGATIVE (NEG); PROTEIN,URINE NEGATIVE (NEG-TRACE)
[2017-10-31 04:20] LABS: BASO % 0 % (0-3); EOS % 1 % (0-3); HEMATOCRIT 29.3 % (36.0-47.0); HEMOGLOBIN 10.1 g/dL (12.0-15.5); LYMPH # 1.5 x10^3/uL (1.0-4.8); LYMPH % 35 % (24-48); MEAN CORPUSCULAR HEMOGLOBIN 37 pg (25-35); MEAN CORPUSCULAR HGB CONC 35 g/dL (31-37); MEAN CORPUSCULAR VOLUME 108 fL (79-100); MONO # 0.7 x10^3/uL (0.0-1.1); MONO % 16 % (0-9); NEUT # 2.1 x10^3uL (1.8-7.7); NEUT % 48 % (31-73); PLATELET COUNT 81 x10^3/uL (140-400); RED BLOOD COUNT 2.72 x10^6/uL (3.50-5.40); RED CELL DISTRIBUTION WIDTH 13.9 % (11.5-14.5); WHITE BLOOD COUNT 4.3 x10^3/uL (4.0-11.0)
[2017-10-31 04:40] LABS: ALBUMIN 2.7 g/dL (3.4-5.0); ALBUMIN/GLOBULIN RATIO 0.8 (1.0-1.7); ALK PHOS 140 U/L (46-116); ALT (SGPT) 93 U/L (14-59); ANION GAP 9 (6-14); AST (SGOT) 124 U/L (15-37); BLOOD UREA NITROGEN 3 mg/dL (7-20); BUN/CREATININE RATIO 5 (6-20); CALCIUM 8.2 mg/dL (8.5-10.1); CARBON DIOXIDE 27 mmol/L (21-32); CHLORIDE 106 mmol/L (98-107); CREATININE 0.6 mg/dL (0.6-1.0); GFR 105.8; GLUCOSE 160 mg/dL (70-99); SODIUM 142 mmol/L (136-145); TOTAL BILIRUBIN 0.9 mg/dL (0.2-1.0); TOTAL PROTEIN 6.1 g/dL (6.4-8.2)
[2017-10-31 05:01] LABS: POTASSIUM 2.5 mmol/L (3.5-5.1)
[2017-10-31 05:18] LABS: BACTERIA,URINE 0 /HPF (0-FEW); RBC,URINE OCC /HPF (0-2); SQUAMOUS EPITHELIAL CELL,UR OCC /LPF; WBC,URINE OCC /HPF (0-4)
[2017-10-31] MEDS: BENZONATATE 100 MG CAPSULE. PO ×3 (06:20→21:12)
[2017-10-31] MEDS: POTASSIUM CHLORIDE 20 MEQ TABLET.ER. PO ×2 (06:20→07:57)
[2017-10-31] MEDS: NICOTINE 21MG PATCH. TD (07:57)
[2017-10-31] MEDS: ACETAMINOPHEN 325 MG TABLET. PO (07:57)
[2017-10-31] MEDS: MULTIVIT INFUSN,ADULT 4,VIT K 10 ML, THIAMINE 100 MG, FOLIC ACID 1 MG in IV NORMAL SALI... IV (07:58)
[2017-10-31 12:11] LABS: POTASSIUM 3.7 mmol/L (3.5-5.1)
[2017-11-01] MEDS: BENZONATATE 100 MG CAPSULE. PO (06:13)
[2017-11-01 06:52] LABS: ADD MAN DIFF? NO
[2017-11-01 07:24] LABS: ALBUMIN/GLOBULIN RATIO 0.8 (1.0-1.7); ALK PHOS 142 U/L (46-116); ALT (SGPT) 84 U/L (14-59); ANION GAP 8 (6-14); AST (SGOT) 77 U/L (15-37); BLOOD UREA NITROGEN 2 mg/dL (7-20); BUN/CREATININE RATIO 3 (6-20); CALCIUM 8.8 mg/dL (8.5-10.1); CARBON DIOXIDE 28 mmol/L (21-32); CHLORIDE 106 mmol/L (98-107); CREATININE 0.6 mg/dL (0.6-1.0); GFR 105.8; GLUCOSE 139 mg/dL (70-99); POTASSIUM 3.3 mmol/L (3.5-5.1); SODIUM 142 mmol/L (136-145); TOTAL BILIRUBIN 0.9 mg/dL (0.2-1.0); TOTAL PROTEIN 6.7 g/dL (6.4-8.2)
[2017-11-01 07:41] LABS: BASO % 1 % (0-3); EOS # 0.1 x10^3/uL (0.0-0.7); EOS % 2 % (0-3); HEMATOCRIT 31.7 % (36.0-47.0); HEMOGLOBIN 10.6 g/dL (12.0-15.5); LYMPH # 1.3 x10^3/uL (1.0-4.8); LYMPH % 39 % (24-48); MEAN CORPUSCULAR HEMOGLOBIN 36 pg (25-35); MEAN CORPUSCULAR HGB CONC 34 g/dL (31-37); MEAN CORPUSCULAR VOLUME 108 fL (79-100); MONO # 0.5 x10^3/uL (0.0-1.1); MONO % 17 % (0-9); NEUT # 1.3 x10^3uL (1.8-7.7); NEUT % 41 % (31-73); PLATELET COUNT 117 x10^3/uL (140-400); RED BLOOD COUNT 2.92 x10^6/uL (3.50-5.40); RED CELL DISTRIBUTION WIDTH 14.5 % (11.5-14.5); WHITE BLOOD COUNT 3.3 x10^3/uL (4.0-11.0)
[2017-11-01] MEDS: NICOTINE 21MG PATCH. TD (08:35)
[2017-11-01] MEDS: MULTIVIT INFUSN,ADULT 4,VIT K 10 ML, THIAMINE 100 MG, FOLIC ACID 1 MG in IV NORMAL SALI... IV (08:39)
== END 2017-11-01 12:30 | disposition home or self-care (01) | DRG 92 ==
LOC: 5 NORTH 10-31 14:56 → ER 11:51 → 1 WEST ICU 14:35
PROVIDERS: Internal Medicine
DX: G92 Toxic encephalopathy (principal); F10.239 Alcohol dependence with withdrawal, unspecified; F17.200 Nicotine dependence, unspecified, uncomplicated; F22 Delusional disorders; K21.9 Gastro-esophageal reflux disease without esophagitis; I10 Essential (primary) hypertension; J45.909 Unspecified asthma, uncomplicated; F41.9 Anxiety disorder, unspecified; Z88.1 Allergy status to other antibiotic agents; Z88.8 Allergy status to other drugs, medicaments and biological substances; Z82.49 Family history of ischemic heart disease and other diseases of the circulatory system
CPT/HCPCS: 36415; 70450; 71045; 80053; 80307; 81001; 82962; 83690; 83735; 84100; 84132; 85025; 85610; 87086; 87641; 93005; 96365; 96366; 96372; 96375; 96376; 99285; 99285-25; G0480; J1200; J1630; J2060; J3480; J7030

== ENCOUNTER 2018-11-24 13:25 | Emergency (ER) | payer SELFPAY ==
[~2018-11-24] VITALS: Ht 157.5 cm; Wt 56.2 kg
[~2018-11-24 13:25] MED LIST changes: +BENZ-8 PO; +CLON2TAB PO; +DOXY100T PO; +GUAI5SYR PO; -HYDR-2762 PO; +HYDR-2765 PO; +HYDROcodone/CHLORPHEN POLIS PO; -PANT40TA3 PO; -PANT40TA5 PO; +PANT40TA77 PO; +PRED-220 PO; +PROP40TA PO
[2018-11-24] MEDS ORDERED: IPRATRPIUM/ALBUTEROL 0.5/2.5MG 3 ML NEBU. NEB ONE (14:00)
[2018-11-24] MEDS ORDERED: HYDROcodone/APAP 10/325 1 TAB TABLET PO ONE (14:00)
[2018-11-24 14:01] LABS: BASO % 1 % (0-3); EOS # 0.1 x10^3/uL (0.0-0.7); EOS % 2 % (0-3); HEMATOCRIT 37.3 % (36.0-47.0); HEMOGLOBIN 12.9 g/dL (12.0-15.5); LYMPH # 0.9 x10^3/uL (1.0-4.8); LYMPH % 30 % (24-48); MEAN CORPUSCULAR HEMOGLOBIN 37 pg (25-35); MEAN CORPUSCULAR HGB CONC 35 g/dL (31-37); MEAN CORPUSCULAR VOLUME 106 fL (79-100); MONO # 0.3 x10^3/uL (0.0-1.1); MONO % 10 % (0-9); NEUT # 1.8 x10^3/uL (1.8-7.7); NEUT % 57 % (31-73); PLATELET COUNT 101 x10^3/uL (140-400); RED BLOOD COUNT 3.52 x10^6/uL (3.50-5.40); RED CELL DISTRIBUTION WIDTH 14.8 % (11.5-14.5); WHITE BLOOD COUNT 3.1 x10^3/uL (4.0-11.0)
[2018-11-24 14:13] LABS: CALCIUM 9.4 mg/dL (8.5-10.1); CREATININE 0.7 mg/dL (0.6-1.0); GFR 88.2; POTASSIUM 3.9 mmol/L (3.5-5.1)
[2018-11-24 14:19] LABS: ALBUMIN 3.7 g/dL (3.4-5.0); TOTAL BILIRUBIN 1.6 mg/dL (0.2-1.0); TOTAL PROTEIN 7.4 g/dL (6.4-8.2)
--- NOTE | 2018-11-24 14:40 | RAD ---
EXAM: Chest, single view. HISTORY: Chest pain. COMPARISON: 10/31/2017. FINDINGS: A frontal view of the chest is obtained. There is no infiltrate, pleural effusion or pneumothorax. The heart is normal in size. IMPRESSION: No acute pulmonary finding. Electronically signed by: Nayla Ivey MD (11/24/2018 2:37 PM) [place] [id number]
--- NOTE | 2018-11-24 16:30 | EKG ---
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
[2018-11-24] MEDS ORDERED: TRAM50TA PO (16:35)
--- NOTE | 2018-11-24 16:35 | PHYS DOC ---
Past Medical History Past Medical History: Anxiety, Asthma, COPD, Gallstones, GERD, Hypertension, Pancreatitis Additional Past Medical Histor: ULCER,PRE-DM Past Surgical History: Colectomy, Additional Past Surgical Histo: Ablation Alcohol Use: Heavy Additional Information: DAILY ETOH - 5 BEERS DAILY Drug Use: None Adult General Chief Complaint Chief Complaint: CHEST PAIN HPI HPI Patient is a 53 year old female with long-standing history of tobacco abuse, chronic daily alcoholism and depression who presents with persistent lef t-sided chest pain described as sharp, worse with deep breathing, position change and when eyeing in left lateral, and position. Patient also reports mild dyspnea, chronic smoker's cough. No fever chills, nausea vomiting or sweats. Denies leg pain or swelling. No history of DVT or PE. No history of coronary disease. Denies upper abdominal pain, hematemesis coffee-ground emesis and bloody stools. No other acute symptoms or complaints. is a current smoker and drinks multiple alcohol beverages daily[] Review of Systems Review of Systems Review symptoms as per history of present illness. All other review symptoms are negative. All other systems were reviewed and found to be within normal limits, except as documented in this note. Current Medications Current Medications Current Medications Medications (Trade) Dose Ordered Sig/Servando Start Time Stop Time Status Last Admin Dose Admin Acetaminophen/ Hydrocodone Bitart (Lortab 10/325) 1 tab 1X ONCE 11/24/18 14:00 11/24/18 14:01 DC 11/24/18 14:14 1 TAB Albuterol/ Ipratropium (Duoneb) 3 ml 1X ONCE 11/24/18 14:00 11/24/18 14:01 DC 11/24/18 14:01 3 ML Allergies Allergies Allergies Coded Allergies Type Severity Reaction Last Updated Verified Monoamine Oxidase Inhibitors Allergy Severe Anaphylaxis 08/20/15 Yes Tricyclic Compounds Allergy Severe Anaphylaxis 08/20/15 Yes bupropion Allergy Severe Anaphylaxis 08/20/15 Yes paroxetine Allergy Severe Anaphylaxis 08/20/15 Yes sulfamethoxazole Allergy Severe Anaphylaxis 02/28/17 Yes trazodone Allergy Severe Anaphylaxis 08/20/15 Yes trimethoprim Allergy Severe Anaphylaxis 02/28/17 Yes venlafaxine HCl Allergy Severe Anaphylaxis 08/20/15 Yes Physical Exam Physical Exam Constitutional: Well developed, well nourished, no acute distress, non-toxic appearance. [] HENT: Normocephalic, atraumatic, bilateral external ears normal, oropharynx moist, no oral exudates, nose normal. [] Eyes: PERRLA, EOMI, conjunctiva normal, no discharge. [] Neck: Normal range of motion, no tenderness, supple, no stridor. [] Cardiovascular:Heart rate regular rhythm, no murmur, negative Homans signs. [] Lungs & Thorax: respirations nonlabored, coarse diminished breath sounds bilaterally. [] Abdomen: Bowel sounds normal, soft, no tenderness. [] Skin: Warm, dry. [] Back: No tenderness. [] Extremities: No tenderness, ROM intact, no edema. [] Neurologic: Alert and oriented X 3, normal motor function, normal sensory function, no focal deficits noted. [] Psychologic: Affect normal, judgement normal, mood normal. [] Current Patient Data Vital Signs Vital Signs Date Time Temp Pulse Resp B/P (MAP) Pulse Ox O2 Delivery O2 Flow Rate FiO2 11/24/18 16:00 62 110/76 (87) 95 Room Air 11/24/18 13:30 98.3 20 98.3 Lab Values Laboratory Tests Test 11/24/18 13:45 White Blood Count 3.1 x10^3/uL (4.0-11.0) L Red Blood Count 3.52 x10^6/uL (3.50-5.40) Hemoglobin 12.9 g/dL (12.0-15.5) Hematocrit 37.3 % (36.0-47.0) Mean Corpuscular Volume 106 fL (79-100) H Mean Corpuscular Hemoglobin 37 pg (25-35) H Mean Corpuscular Hemoglobin Concent 35 g/dL (31-37) Red Cell Distribution Width 14.8 % (11.5-14.5) H Platelet Count 101 x10^3/uL (140-400) L Neutrophils (%) (Auto) 57 % (31-73) Lymphocytes (%) (Auto) 30 % (24-48) Monocytes (%) (Auto) 10 % (0-9) H Eosinophils (%) (Auto) 2 % (0-3) Basophils (%) (Auto) 1 % (0-3) Neutrophils # (Auto) 1.8 x10^3/uL (1.8-7.7) Lymphocytes # (Auto) 0.9 x10^3/uL (1.0-4.8) L Monocytes # (Auto) 0.3 x10^3/uL (0.0-1.1) Eosinophils # (Auto) 0.1 x10^3/uL (0.0-0.7) Basophils # (Auto) 0.0 x10^3/uL (0.0-0.2) D-Dimer ([place]) 0.37 ug/mlFEU (0.00-0.50) Sodium Level 138 mmol/L (136-145) Potassium Level 3.9 mmol/L (3.5-5.1) Chloride Level 100 mmol/L (98-107) Carbon Dioxide Level 26 mmol/L (21-32) Anion Gap 12 (6-14) Blood Urea Nitrogen 3 mg/dL (7-20) L Creatinine 0.7 mg/dL (0.6-1.0) Estimated GFR (Cockcroft-Gault) 88.2 BUN/Creatinine Ratio 4 (6-20) L Glucose Level 177 mg/dL (70-99) H Calcium Level 9.4 mg/dL (8.5-10.1) Total Bilirubin 1.6 mg/dL (0.2-1.0) H Aspartate Amino Transferase (AST) 187 U/L (15-37) H Alanine Aminotransferase (ALT) 111 U/L (14-59) H Alkaline Phosphatase 207 U/L (46-116) H Troponin I Quantitative < 0.017 ng/mL (0.000-0.055) XH-Zgf-D-Type Natriuretic Peptide 112 pg/mL (0-124) Total Protein 7.4 g/dL (6.4-8.2) Albumin 3.7 g/dL (3.4-5.0) Albumin/Globulin Ratio 1.0 (1.0-1.7) Laboratory Tests 11/24/18 13:45 Laboratory Tests 11/24/18 13:45 EKG EKG [EKG: No acute ST-T wave changes the center ] Radiology/Procedures Radiology/Procedures [Chest X-ray: no acute cardiopulmonary disease] Course & Med Decision Making Course & Med Decision Making Pertinent Labs and Imaging studies reviewed. (See chart for details) [Atypical chest pain consistent with pleurisy. D-dimer, troponin, chest x-ray unremarkable. symptoms significantly improved with pain medication and breathing treatment.Lab work also consistent with chronic liver disease with bone marrow suppression secondary to alcoholism. Patient requesting outpatient resources., Adarsh from the [facility] assessment team consult and provided patient education and outpatient referral. Recommend patient follow-up with his for reevaluation of chest pain and abnormal labs. Return precautions reviewed. Patient verbalizes understanding and agreement with discharge instructions prior to departure. ] Dragon Disclaimer Dragon Disclaimer This electronic medical record was generated, in whole or in part, using a voice recognition dictation system. Departure Departure Impression: Primary Impression: Alcohol abuse Additional Impressions: Pleurisy Abnormal laboratory test result Disposition: HOME, SELF-CARE Condition: IMPROVED Referrals: LUPE THOMASON APRN (PCP) Patient Instructions: Chest Pain (Nonspecific), [id number], Pleurisy, [id number] Additional Instructions: You were evaluated in the emergency department for chest pain. EKG, chest x-ray and labwork are obtained and are nondiagnostic. the exact cause of your symptoms has not been determined but may be related to pleurisy which is inflammation of lung. Please take tramadol for pain, continue daily and acid and follow-up with outpatient rehabilitation services for alcohol treatment and your PCP for reevaluation of abnormal labs. CT develop any new or worsening symptoms, please return to the ED. Scripts Tramadol Hcl (TRAMADOL HCL) 50 Mg Tablet 50 MG PO Q6H PRN for PAIN for 3 Days, #15 TAB 0 Refills Prov: NOA LEVY DO 11/24/18 Problem Qualifiers NOA LEVY DO Nov 24, 2018 16:35
[2018-11-24 16:39] VITALS: BP 108/78
== END 2018-11-24 16:45 | disposition home or self-care (01) ==
LOC: ER 13:25
DX: R09.1 Pleurisy (principal); R79.9 Abnormal finding of blood chemistry, unspecified; F10.20 Alcohol dependence, uncomplicated; Y90.9 Presence of alcohol in blood, level not specified; J44.9 Chronic obstructive pulmonary disease, unspecified; K21.9 Gastro-esophageal reflux disease without esophagitis; I10 Essential (primary) hypertension; Z90.49 Acquired absence of other specified parts of digestive tract; Z87.19 Personal history of other diseases of the digestive system; Z88.1 Allergy status to other antibiotic agents; Z88.2 Allergy status to sulfonamides; Z88.8 Allergy status to other drugs, medicaments and biological substances
CPT/HCPCS: 36415; 71045; 80053; 83880; 84484; 85025; 85379; 93005; 94640; 99285; J7620

== ENCOUNTER 2019-08-27 15:02 | Emergency (ER) | payer SELFPAY ==
[~2019-08-27] VITALS: Ht 157.5 cm; Wt 57.0 kg
[2019-08-27] MEDS ORDERED: IV NORMAL SALINE 1000ML BAG 1,000 ML IV ONE (15:30)
[2019-08-27] MEDS ORDERED: fentaNYL PF VIAL 100 MCG/2 ML VIAL IV ONE (15:30)
[2019-08-27] MEDS ORDERED: ONDANSETRON PF 4 MG/2 ML VIAL. IV ONE (15:30)
--- NOTE | 2019-08-27 15:33 | PHYS DOC ---
Past Medical History Past Medical History: Anxiety, Asthma, COPD, Gallstones, GERD, Hypertension, Pancreatitis Additional Past Medical Histor: ULCER,PRE-DM Past Surgical History: Colectomy, Additional Past Surgical Histo: Ablation Smoking Status: Heavy Tobacco Smoker Alcohol Use: Heavy Drug Use: None General Adult EDM: Chief Complaint: ABDOMINAL PAIN HPI: HPI: Patient is a 53-year-old female who is a chronic daily drinker with a history of chronic pancreatitis who presents with a several day history of of abdominal pain. She was she seen at [facility] yesterday told she had pancreatitis and sent home. She returns here today with worsening abdominal pain associated with nausea and vomiting. She denies any fever chills or sweats. She has not had any melena or hematemesis. Currently, she states the pain is 10 out of 10 [] Review of Systems: Review of Systems: Constitutional: Denies fever or chills. [] Eyes: Denies change in visual acuity. [] HENT: Denies nasal congestion or sore throat. [] Respiratory: Denies cough or shortness of breath. [] Cardiovascular: Denies chest pain or edema. [] GI: Per HPI [] : Denies dysuria. [] Musculoskeletal: Denies back pain or joint pain. [] Integument: Denies rash. [] Neurologic: Denies headache, focal weakness or sensory changes. [] Endocrine: Denies polyuria or polydipsia. [] Lymphatic: Denies swollen glands. [] Psychiatric: Denies depression or anxiety. [] Heart Score: Risk Factors: Risk Factors: DM, Current or recent (<one month) smoker, HTN, HLP, family history of CAD, obesity. Risk Scores: Score 0 - 3: 2.5% MACE over next 6 weeks - Discharge Home Score 4 - 6: 20.3% MACE over next 6 weeks - Admit for Clinical Observation Score 7 - 10: 72.7% MACE over next 6 weeks - Early Invasive Strategies Allergies: Allergies: Allergies Coded Allergies Type Severity Reaction Last Updated Verified Monoamine Oxidase Inhibitors Allergy Severe Anaphylaxis 08/20/15 Yes Tricyclic Compounds Allergy Severe Anaphylaxis 08/20/15 Yes bupropion Allergy Severe Anaphylaxis 08/20/15 Yes paroxetine Allergy Severe Anaphylaxis 08/20/15 Yes sulfamethoxazole Allergy Severe Anaphylaxis 02/28/17 Yes trazodone Allergy Severe Anaphylaxis 08/20/15 Yes trimethoprim Allergy Severe Anaphylaxis 02/28/17 Yes venlafaxine HCl Allergy Severe Anaphylaxis 08/20/15 Yes Physical Exam: PE: Constitutional: Frail, older than stated age, moderate e distress, non-toxic appearance. [] HENT: Normocephalic, atraumatic, bilateral external ears normal, oropharynx moist, no oral exudates, nose normal. [] Eyes: PERRLA, EOMI, conjunctiva normal, no discharge. [] Neck: Normal range of motion, no tenderness, supple, no stridor. [] Cardiovascular:Heart rate regular rhythm, no murmur [] Lungs & Thorax: Bilateral breath sounds clear to auscultation [] Abdomen: Diffuse tender to palp with voluntary guarding no rebound good bowel sounds x4] Skin: Warm, dry, no erythema, no rash. [] Back: No tenderness, no CVA tenderness. [] Extremities: No tenderness, no cyanosis, no clubbing, ROM intact, no edema. [] Neurologic: Alert and oriented X 3, normal motor function, normal sensory function, no focal deficits noted. [] Psychologic: Depressed affect. [] EKG: EKG: [] Radiology/Procedures: Radiology/Procedures: [] Course & Med Decision Making: Course & Med Decision Making Pertinent Labs and Imaging studies reviewed. (See chart for details) [ED course: Evaluation reveals a 53-year-old female with chronic abdominal pain that she thinks is related to pancreatitis. Her lipase is negative. She was given IV fluids fentanyl and Zofran during her stay in the department which did help alleviate her symptoms. I encouraged her to follow-up with a surgeon partner and have given her the number for Dr. Gonzalo Rainey. Patient is safe for discharge home.] Rebaon Disclaimer: Dragcon Disclaimer: This electronic medical record was generated, in whole or in part, using a voice recognition dictation system. Departure Departure Impression: Primary Impression: Abdominal pain Qualified Codes: R10.13 - Epigastric pain Additional Impression: Alcoholic gastritis Qualified Codes: K29.20 - Alcoholic gastritis without bleeding Disposition: HOME, SELF-CARE Condition: IMPROVED Referrals: LUPE THOMASON APRN (PCP) Patient Instructions: Alcohol Problems, Alcoholic Gastritis-Brief, Gastritis, Adult Additional Instructions: Take medication as directed. Please limit your alcohol use. Scripts Pantoprazole Sodium (PROTONIX) 20 Mg Tablet.dr 1 TAB PO DAILY, #90 TAB 3 Refills Prov: VIVIEN GANNON DO 08/27/19 VIVIEN GANNON DO August 27, 2019 15:33
[2019-08-27 16:01] LABS: CLARITY,URINE CLEAR; COLOR,URINE YELLOW
[2019-08-27 16:02] LABS: BILIRUBIN,URINE SMALL (NEG); NITRITE,URINE NEGATIVE (NEG); PH,URINE 6.5 (<5.0-8.0); PROTEIN,URINE TRACE mg/dL (NEG-TRACE); SQUAMOUS EPITHELIAL CELL,UR MOD /LPF; UROBILINOGEN,URINE 0.2 mg/dL (0.2 mg/dL)
[2019-08-27 16:03] LABS: BACTERIA,URINE MODERATE /HPF (0-FEW); HYALINE CASTS, URINE MODERATE /HPF; RBC,URINE 0 /HPF (0-2)
[2019-08-27 16:08] LABS: BARBITURATES NEG (NEG); BENZODIAZEPINES POS (NEG); CANNABINOIDS NEG (NEG); COCAINE NEG (NEG); METHADONE NEG (NEG); OPIATES POS (NEG); PHENCYCLIDINE NEG (NEG)
[2019-08-27 16:09] LABS: AMPHETAMINE/METHAMPHETAMINE NEG (NEG)
[2019-08-27 16:48] LABS: BASO # 0.1 x10^3/uL (0.0-0.2); BASO % 1 % (0-3); EOS # 0.1 x10^3/uL (0.0-0.7); EOS % 1 % (0-3); HEMATOCRIT 39.5 % (36.0-47.0); HEMOGLOBIN 13.3 g/dL (12.0-15.5); LYMPH # 1.4 x10^3/uL (1.0-4.8); LYMPH % 27 % (24-48); MEAN CORPUSCULAR HEMOGLOBIN 36 pg (25-35); MEAN CORPUSCULAR HGB CONC 34 g/dL (31-37); MEAN CORPUSCULAR VOLUME 107 fL (79-100); MONO # 0.5 x10^3/uL (0.0-1.1); MONO % 9 % (0-9); NEUT # 3.2 x10^3/uL (1.8-7.7); NEUT % 62 % (31-73); PLATELET COUNT 239 x10^3/uL (140-400); RED CELL DISTRIBUTION WIDTH 15.5 % (11.5-14.5); WHITE BLOOD COUNT 5.2 x10^3/uL (4.0-11.0)
[2019-08-27 16:57] LABS: CALCIUM 9.7 mg/dL (8.5-10.1); CREATININE 0.7 mg/dL (0.6-1.0); GFR 88.2; POTASSIUM 4.2 mmol/L (3.5-5.1)
[2019-08-27 17:04] LABS: ALBUMIN 3.7 g/dL (3.4-5.0); ALBUMIN/GLOBULIN RATIO 0.9 (1.0-1.7); TOTAL BILIRUBIN 1.1 mg/dL (0.2-1.0); TOTAL PROTEIN 7.8 g/dL (6.4-8.2)
[2019-08-27] MEDS ORDERED: IOHEXOL 300 MG/ML 100ML VIAL. IV ONE (17:15)
[2019-08-27] MEDS ORDERED: CONTRAST GIVEN. MC PRN (17:15)
[2019-08-27] MEDS ORDERED: PANT20TA2 PO (17:22)
[2019-08-27 18:00] VITALS: BP 127/72
--- NOTE | 2019-08-27 18:13 | RAD ---
EXAM: CT ABDOMEN/PELVIS WITH CONTRAST. HISTORY: Abdominal pain. TECHNIQUE: Computed tomography of the abdomen and pelvis was performed after the intravenous administration of iodinated contrast. One or more of the following individualized dose reduction techniques were utilized for this examination: 1. Automated exposure control. 2. Adjustment of the mA and/or kV according to patient size. 3. Use of iterative reconstruction technique. COMPARISON: None. FINDINGS: Lung windows through the visualized portions of the bases reveal mild atelectasis. Bone windows reveal no suspicious lesions. Pancreatic parenchymal calcification has developed throughout the head and body since the prior study, consistent with chronic pancreatitis. There are mild inflammatory changes about the involved regions consistent with mild acute pancreatitis. The main pancreatic duct is irregular and dilated to 6 mm in the pancreatic head. A distal pancreatic ductal calculus measuring 5 mm is suspected. The common duct is dilated to 1.4 cm, with a stricture at the level of the pancreatic head. No clear pancreatic mass is identified. The gallbladder is unremarkable by CT. The splenic vein is occluded with moderate sized tortuous collaterals along the pancreatic body and tail. The superior mesenteric vein and portal vein remain patent. The spleen is not enlarged. There are no clear gastric varices. The liver, kidneys and adrenal glands are unremarkable. There are no pathologically enlarged lymph nodes. A partially calcified mass along the right aspect of the uterus is consistent with a degenerated fibroid measures 3.5 x 2.5 cm. Another smaller fibroid posteriorly measures 2.6 cm. There are changes of right partial colectomy. There is no small bowel obstruction. Small fat-containing hernias are noted in the midline supraumbilical region. There is diastases of the rectus muscles more inferiorly. IMPRESSION: 1. Changes consistent with chronic pancreatitis, with mild superimposed acute pancreatitis. Correlate with serologies. 2. Stricture of the common duct at the level of the pancreatic head. No clear pancreatic parenchymal mass is identified and this may be secondary to fibrosis in the setting of chronic pancreatitis. ERCP could further evaluate. 3. 5 mm distal pancreatic duct calculus. 4. 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 5. Uterine fibroids measure up to 3.5 cm. 6. Small fat-containing supraumbilical hernias. Electronically signed by: Cristiana Cannon MD (08/27/2019 6:10 PM) [facility]
== END 2019-08-27 18:45 | disposition home or self-care (01) ==
LOC: ER 15:02
DX: K29.20 Alcoholic gastritis without bleeding (principal); R10.13 Epigastric pain; F41.9 Anxiety disorder, unspecified; J44.9 Chronic obstructive pulmonary disease, unspecified; K21.9 Gastro-esophageal reflux disease without esophagitis; I10 Essential (primary) hypertension; K86.1 Other chronic pancreatitis; F17.200 Nicotine dependence, unspecified, uncomplicated; F10.10 Alcohol abuse, uncomplicated; Z98.890 Other specified postprocedural states; Z90.89 Acquired absence of other organs; Z88.2 Allergy status to sulfonamides; Z88.6 Allergy status to analgesic agent; Z88.8 Allergy status to other drugs, medicaments and biological substances; Z88.5 Allergy status to narcotic agent
CPT/HCPCS: 36415; 74177; 80053; 80307; 81001; 83690; 85025; 87086; 96361; 96374; 96375; 99285; G0480; J2405; J3010; J7030; Q9967

== ENCOUNTER 2019-08-29 07:17 | Emergency (ER) | payer SELFPAY ==
[~2019-08-29] VITALS: Ht 157.5 cm; Wt 56.0 kg
[~2019-08-29 07:17] MED LIST changes: +PANT20TA2 PO
[2019-08-29] MEDS ORDERED: IV NORMAL SALINE 1000ML BAG 1,000 ML IV ONE (07:30)
[2019-08-29] MEDS ORDERED: KETOROLAC 30 MG/ML VIAL. IVP ONE (07:30)
[2019-08-29] MEDS ORDERED: ONDANSETRON PF 4 MG/2 ML VIAL. IVP ONE (07:30)
--- NOTE | 2019-08-29 07:35 | PHYS DOC ---
Past Medical History Past Medical History: Anxiety, Asthma, COPD, Gallstones, GERD, Hypertension, Pancreatitis Additional Past Medical Histor: ULCER,PRE-DM Past Surgical History: Colectomy, Additional Past Surgical Histo: Ablation Smoking Status: Heavy Tobacco Smoker Alcohol Use: Heavy Drug Use: None General Adult EDM: Chief Complaint: ABDOMINAL PAIN HPI: HPI: 53-year-old female past medical history alcohol abuse and pancreatitis presents with a chief complaint of left upper quadrant abdominal pain associated with nausea and vomiting. Patient states she has had symptoms for greater than 1 week. States her last alcoholic drink was approximately 5 days ago. Patient also states she was recently hospitalized at [facility] was discharged on Wednesday. Patient also states she was hospitalized here at [facility] and discharged yesterday. Patient states vomiting returned this a.m. Patient states she is vomited multiple times. Patient states pain is in the left upper quadrant states that never resolved prior to discharge. Patient states pain is becoming worse. Review of Systems: Review of Systems: Constitutional: Denies fever or chills. [] Eyes: Denies change in visual acuity. [] HENT: Denies nasal congestion or sore throat. [] Respiratory: Denies cough or shortness of breath. [] Cardiovascular: Denies chest pain or edema. [] GI: Positive abdominal pain positive nausea positive vomiting : Denies dysuria. [] Musculoskeletal: Denies back pain or joint pain. [] Integument: Denies rash. [] Neurologic: Denies headache, focal weakness or sensory changes. [] Endocrine: Denies polyuria or polydipsia. [] Lymphatic: Denies swollen glands. [] Psychiatric: Denies depression or anxiety. [] Heart Score: Risk Factors: Risk Factors: DM, Current or recent (<one month) smoker, HTN, HLP, family history of CAD, obesity. Risk Scores: Score 0 - 3: 2.5% MACE over next 6 weeks - Discharge Home Score 4 - 6: 20.3% MACE over next 6 weeks - Admit for Clinical Observation Score 7 - 10: 72.7% MACE over next 6 weeks - Early Invasive Strategies Allergies: Allergies: Allergies Coded Allergies Type Severity Reaction Last Updated Verified Monoamine Oxidase Inhibitors Allergy Severe Anaphylaxis 08/20/15 Yes Tricyclic Compounds Allergy Severe Anaphylaxis 08/20/15 Yes bupropion Allergy Severe Anaphylaxis 08/20/15 Yes paroxetine Allergy Severe Anaphylaxis 08/20/15 Yes sulfamethoxazole Allergy Severe Anaphylaxis 02/28/17 Yes trazodone Allergy Severe Anaphylaxis 08/20/15 Yes trimethoprim Allergy Severe Anaphylaxis 02/28/17 Yes venlafaxine HCl Allergy Severe Anaphylaxis 08/20/15 Yes Physical Exam: PE: Constitutional: Well developed, well nourished, no acute distress, non-toxic appearance. [] HENT: Normocephalic, atraumatic, bilateral external ears normal, oropharynx moist, no oral exudates, nose normal. [] Eyes: PERRLA, EOMI, conjunctiva normal, no discharge. [] Neck: Normal range of motion, no tenderness, supple, no stridor. [] Cardiovascular:Heart rate regular rhythm, no murmur [] Lungs & Thorax: Bilateral breath sounds clear to auscultation [] Abdomen: Bowel sounds normal, patient's abdomen is soft patient states the location of her pain is in the left upper quadrant Skin: Warm, dry, no erythema, no rash. [] Back: No tenderness, no CVA tenderness. [] Extremities: No tenderness, no cyanosis, no clubbing, ROM intact, no edema. [] Neurologic: Alert and oriented X 3, normal motor function, normal sensory function, no focal deficits noted. [] Psychologic: Affect normal, judgement normal, mood normal. [] EKG: EKG: [] Radiology/Procedures: Radiology/Procedures: [] Course & Med Decision Making: Course & Med Decision Making Pertinent Labs and Imaging studies reviewed. (See chart for details) [] Treated with IV Fluids, Toradol, Zofran, and fentanyl. Pain improved post treatment. Patient tolerated PO-- no vomiting in the ER. Rx norco and zofran. Patient to follow up with PCP or GI. Edilberto Disclaimer: Edilberto Disclaimer: This electronic medical record was generated, in whole or in part, using a voice recognition dictation system. Departure Departure Impression: Primary Impression: Pancreatitis Additional Impression: Nausea and vomiting Disposition: 01 HOME, SELF-CARE Condition: STABLE Referrals: LUPE THOMASON APRN (PCP) Scripts Ondansetron Hcl (ZOFRAN) 4 Mg Tablet 1 TAB PO Q6HRS, #10 TAB Prov: MEGHANA MASTERS I DO 08/29/19 Hydrocodone/Apap 5-325 (NORCO 5-325 TABLET) 1 Each Tablet 1 TAB PO Q4-6HRS, #14 TAB Prov: MEGHANA MASTERS DO 08/29/19 MEGHANA MASTERS DO August 29, 2019 07:35
[2019-08-29 07:51] LABS: BASO # 0.1 x10^3/uL (0.0-0.2); BASO % 2 % (0-3); EOS % 1 % (0-3); HEMATOCRIT 37.7 % (36.0-47.0); HEMOGLOBIN 12.7 g/dL (12.0-15.5); LYMPH # 1.5 x10^3/uL (1.0-4.8); LYMPH % 43 % (24-48); MEAN CORPUSCULAR HEMOGLOBIN 36 pg (25-35); MEAN CORPUSCULAR HGB CONC 34 g/dL (31-37); MEAN CORPUSCULAR VOLUME 107 fL (79-100); MONO # 0.4 x10^3/uL (0.0-1.1); MONO % 12 % (0-9); NEUT # 1.5 x10^3/uL (1.8-7.7); NEUT % 42 % (31-73); PLATELET COUNT 185 x10^3/uL (140-400); RED BLOOD COUNT 3.52 x10^6/uL (3.50-5.40); RED CELL DISTRIBUTION WIDTH 15.2 % (11.5-14.5); WHITE BLOOD COUNT 3.4 x10^3/uL (4.0-11.0)
[2019-08-29 07:54] LABS: CALCIUM 9.6 mg/dL (8.5-10.1); CREATININE 0.6 mg/dL (0.6-1.0); GFR 105.4; POTASSIUM 3.8 mmol/L (3.5-5.1)
[2019-08-29 08:01] LABS: ALBUMIN 3.3 g/dL (3.4-5.0); ALBUMIN/GLOBULIN RATIO 0.9 (1.0-1.7); TOTAL BILIRUBIN 0.9 mg/dL (0.2-1.0)
[2019-08-29] MEDS ORDERED: fentaNYL PF VIAL 100 MCG/2 ML VIAL IVP ONE (08:30)
[2019-08-29 08:55] VITALS: BP 99/58
[2019-08-29] MEDS ORDERED: ONDA4TAB7 PO (08:56)
[2019-08-29] MEDS ORDERED: HYDR-3164 PO (08:56)
== END 2019-08-29 09:45 | disposition home or self-care (01) ==
LOC: ER 07:17
DX: K85.90 Acute pancreatitis without necrosis or infection, unspecified (principal); R11.2 Nausea with vomiting, unspecified; R10.12 Left upper quadrant pain; F41.9 Anxiety disorder, unspecified; J44.9 Chronic obstructive pulmonary disease, unspecified; K21.9 Gastro-esophageal reflux disease without esophagitis; I10 Essential (primary) hypertension; F10.10 Alcohol abuse, uncomplicated; Z87.442 Personal history of urinary calculi; Z90.89 Acquired absence of other organs; Z98.890 Other specified postprocedural states; Z88.2 Allergy status to sulfonamides; Z88.1 Allergy status to other antibiotic agents; Z88.8 Allergy status to other drugs, medicaments and biological substances; Z88.6 Allergy status to analgesic agent
CPT/HCPCS: 36415; 80053; 83690; 85025; 96361; 96374; 96375; 99284; G0480; J1885; J2405; J3010; J7030

== ENCOUNTER 2019-09-07 11:17 | Emergency (ER) | payer SELFPAY ==
[~2019-09-07] VITALS: Ht 157.5 cm; Wt 52.2 kg
[~2019-09-07 11:17] MED LIST changes: +HYDR-3164 PO; +ONDA4TAB7 PO
[2019-09-07] MEDS ORDERED: ONDANSETRON PF 4 MG/2 ML VIAL. IV ONE (11:45)
[2019-09-07] MEDS ORDERED: IV NORMAL SALINE 1000ML BAG 1,000 ML IV ONE (11:45)
[2019-09-07] MEDS ORDERED: fentaNYL PF VIAL 100 MCG/2 ML VIAL IV ONE (11:45)
[2019-09-07 11:58] LABS: BASO # 0.1 x10^3/uL (0.0-0.2); BASO % 1 % (0-3); EOS # 0.1 x10^3/uL (0.0-0.7); EOS % 1 % (0-3); HEMATOCRIT 40.9 % (36.0-47.0); HEMOGLOBIN 13.8 g/dL (12.0-15.5); LYMPH # 1.4 x10^3/uL (1.0-4.8); LYMPH % 27 % (24-48); MEAN CORPUSCULAR HEMOGLOBIN 35 pg (25-35); MEAN CORPUSCULAR HGB CONC 34 g/dL (31-37); MEAN CORPUSCULAR VOLUME 104 fL (79-100); MONO # 0.4 x10^3/uL (0.0-1.1); MONO % 8 % (0-9); NEUT # 3.2 x10^3/uL (1.8-7.7); NEUT % 63 % (31-73); PLATELET COUNT 181 x10^3/uL (140-400); RED BLOOD COUNT 3.93 x10^6/uL (3.50-5.40); RED CELL DISTRIBUTION WIDTH 13.9 % (11.5-14.5); WHITE BLOOD COUNT 5.1 x10^3/uL (4.0-11.0)
[2019-09-07 12:09] LABS: CALCIUM 9.5 mg/dL (8.5-10.1); CREATININE 0.6 mg/dL (0.6-1.0); GFR 105.4; POTASSIUM 4.3 mmol/L (3.5-5.1)
[2019-09-07 12:20] LABS: ALBUMIN 3.6 g/dL (3.4-5.0); TOTAL BILIRUBIN 0.7 mg/dL (0.2-1.0); TOTAL PROTEIN 7.2 g/dL (6.4-8.2)
[2019-09-07 12:23] VITALS: BP 136/91
[2019-09-07] MEDS ORDERED: ONDA4TAB12 PO (12:51)
[2019-09-07] MEDS ORDERED: HYDR-3164 PO (12:51)
--- NOTE | 2019-09-07 12:51 | PHYS DOC ---
Past Medical History Past Medical History: COPD, Pancreatitis Additional Past Medical Histor: ULCER,PRE-DM Past Surgical History: Colectomy, Additional Past Surgical Histo: Ablation Smoking Status: Current Every Day Smoker Alcohol Use: Sober Additional Information: QUIT DRINKING X1 MONTH AGO Drug Use: None General Adult EDM: Chief Complaint: GI PROBLEM HPI: HPI: Patient is a 53-year-old female with a long history of alcohol abuse and chronic pancreatitis who presents with a 2-day history of progressive abdominal pain. She states it started as a burning pain and radiates across to her upper abdomen. She denies any melena or hematemesis. She denies any fever chills or sweats. She denies having had any alcohol in the last several days. She does have some nausea but no vomiting. [] Review of Systems: Review of Systems: Constitutional: Denies fever or chills. [] Eyes: Denies change in visual acuity. [] HENT: Denies nasal congestion or sore throat. [] Respiratory: Denies cough or shortness of breath. [] Cardiovascular: Denies chest pain or edema. [] GI: Reports abdominal pain [] : Denies dysuria. [] Musculoskeletal: Denies back pain or joint pain. [] Integument: Denies rash. [] Neurologic: Denies headache, focal weakness or sensory changes. [] Endocrine: Denies polyuria or polydipsia. [] Lymphatic: Denies swollen glands. [] Psychiatric: Denies depression or anxiety. [] Heart Score: Risk Factors: Risk Factors: DM, Current or recent (<one month) smoker, HTN, HLP, family history of CAD, obesity. Risk Scores: Score 0 - 3: 2.5% MACE over next 6 weeks - Discharge Home Score 4 - 6: 20.3% MACE over next 6 weeks - Admit for Clinical Observation Score 7 - 10: 72.7% MACE over next 6 weeks - Early Invasive Strategies Current Medications: Current Medications Medications (Trade) Dose Ordered Sig/Servando Start Time Stop Time Status Last Admin Dose Admin Fentanyl Citrate (Fentanyl 2ml Vial) 50 mcg 1X ONCE 09/07/19 11:45 09/07/19 11:46 DC 09/07/19 11:59 50 MCG Ondansetron HCl (Zofran) 4 mg 1X ONCE 09/07/19 11:45 09/07/19 11:46 DC 09/07/19 11:59 4 MG Sodium Chloride 1,000 ml @ 1,000 mls/hr 1X ONCE 09/07/19 11:45 09/07/19 12:44 DC 09/07/19 11:58 1,000 MLS/HR Allergies: Allergies: Allergies Coded Allergies Type Severity Reaction Last Updated Verified Monoamine Oxidase Inhibitors Allergy Severe Anaphylaxis 08/20/15 Yes Tricyclic Compounds Allergy Severe Anaphylaxis 08/20/15 Yes bupropion Allergy Severe Anaphylaxis 08/20/15 Yes paroxetine Allergy Severe Anaphylaxis 08/20/15 Yes sulfamethoxazole Allergy Severe Anaphylaxis 02/28/17 Yes trazodone Allergy Severe Anaphylaxis 08/20/15 Yes trimethoprim Allergy Severe Anaphylaxis 02/28/17 Yes venlafaxine HCl Allergy Severe Anaphylaxis 08/20/15 Yes Physical Exam: PE: Constitutional: Well developed, well nourished, mild distress, non-toxic appeara nce. [] HENT: Normocephalic, atraumatic, bilateral external ears normal, oropharynx moist, no oral exudates, nose normal. [] Eyes: PERRLA, EOMI, conjunctiva normal, no discharge. [] Neck: Normal range of motion, no tenderness, supple, no stridor. [] Cardiovascular:Heart rate regular rhythm, no murmur [] Lungs & Thorax: Bilateral breath sounds clear to auscultation [] Abdomen: Bowel sounds normal, soft, no tenderness, no masses, no pulsatile masses. [] Skin: Warm, dry, no erythema, no rash. [] Back: No tenderness, no CVA tenderness. [] Extremities: No tenderness, no cyanosis, no clubbing, ROM intact, no edema. [] Neurologic: Alert and oriented X 3, normal motor function, normal sensory function, no focal deficits noted. [] Psychologic: Anxious, crying but producing no tears Current Patient Data: Labs: Laboratory Tests Test 09/07/19 11:50 White Blood Count 5.1 x10^3/uL (4.0-11.0) Red Blood Count 3.93 x10^6/uL (3.50-5.40) Hemoglobin 13.8 g/dL (12.0-15.5) Hematocrit 40.9 % (36.0-47.0) Mean Corpuscular Volume 104 fL (79-100) H Mean Corpuscular Hemoglobin 35 pg (25-35) Mean Corpuscular Hemoglobin Concent 34 g/dL (31-37) Red Cell Distribution Width 13.9 % (11.5-14.5) Platelet Count 181 x10^3/uL (140-400) Neutrophils (%) (Auto) 63 % (31-73) Lymphocytes (%) (Auto) 27 % (24-48) Monocytes (%) (Auto) 8 % (0-9) Eosinophils (%) (Auto) 1 % (0-3) Basophils (%) (Auto) 1 % (0-3) Neutrophils # (Auto) 3.2 x10^3/uL (1.8-7.7) Lymphocytes # (Auto) 1.4 x10^3/uL (1.0-4.8) Monocytes # (Auto) 0.4 x10^3/uL (0.0-1.1) Eosinophils # (Auto) 0.1 x10^3/uL (0.0-0.7) Basophils # (Auto) 0.1 x10^3/uL (0.0-0.2) Sodium Level 136 mmol/L (136-145) Potassium Level 4.3 mmol/L (3.5-5.1) Chloride Level 99 mmol/L (98-107) Carbon Dioxide Level 29 mmol/L (21-32) Anion Gap 8 (6-14) Blood Urea Nitrogen 8 mg/dL (7-20) Creatinine 0.6 mg/dL (0.6-1.0) Estimated GFR (Cockcroft-Gault) 105.4 BUN/Creatinine Ratio 13 (6-20) Glucose Level 158 mg/dL (70-99) H Calcium Level 9.5 mg/dL (8.5-10.1) Total Bilirubin 0.7 mg/dL (0.2-1.0) Aspartate Amino Transferase (AST) 41 U/L (15-37) H Alanine Aminotransferase (ALT) 36 U/L (14-59) Alkaline Phosphatase 113 U/L (46-116) Total Protein 7.2 g/dL (6.4-8.2) Albumin 3.6 g/dL (3.4-5.0) Albumin/Globulin Ratio 1.0 (1.0-1.7) Lipase 425 U/L (73-393) H Laboratory Tests 09/07/19 11:50 Laboratory Tests 09/07/19 11:50 Vital Signs: Vital Signs Date Time Temp Pulse Resp B/P (MAP) Pulse Ox O2 Delivery O2 Flow Rate FiO2 09/07/19 11:28 98.1 69 22 143/83 (103) 100 Room Air 98.1 EKG: EKG: [] Radiology/Procedures: Radiology/Procedures: [] Course & Med Decision Making: Course & Med Decision Making Pertinent Labs and Imaging studies reviewed. (See chart for details) [] Dragon Disclaimer: Dragon Disclaimer: This electronic medical record was generated, in whole or in part, using a voice recognition dictation system. Departure Departure Impression: Primary Impression: Pancreatitis Qualified Codes: K86.0 - Alcohol-induced chronic pancreatitis Disposition: HOME, SELF-CARE Condition: STABLE Referrals: LUPE THOMASON APRN (PCP) LOLA JACOB MD You need to follow with Dr. Jacob as an outpatient. Patient Instructions: Acute Pancreatitis Additional Instructions: It is incredibly important that you do not drink any alcohol ever again. Scripts Ondansetron (ONDANSETRON ODT) 4 Mg Tab.rapdis 1 TAB PO PRN Q6-8HRS for VOMITING, #16 TAB Prov: VIVIEN GANNON DO 09/07/19 Hydrocodone/Apap 5-325 (NORCO 5-325 TABLET) 1 Each Tablet 1 TAB PO PRN Q6HRS PRN for PAIN, #10 TAB 0 Refills Prov: VIVIEN GANNON DO 09/07/19 VIVIEN GANNON DO September 07, 2019 12:51
== END 2019-09-07 13:00 | disposition home or self-care (01) ==
LOC: ER 11:17
DX: K86.0 Alcohol-induced chronic pancreatitis (principal); J44.9 Chronic obstructive pulmonary disease, unspecified; F17.200 Nicotine dependence, unspecified, uncomplicated; Z90.49 Acquired absence of other specified parts of digestive tract; Z88.1 Allergy status to other antibiotic agents; Z88.2 Allergy status to sulfonamides; Z88.8 Allergy status to other drugs, medicaments and biological substances
CPT/HCPCS: 36415; 80053; 83690; 85025; 96374; 96375; 99284; J2405; J3010; J7030

== ENCOUNTER 2020-06-05 05:08 | Emergency (ER) | payer MEDICAID ==
[~2020-06-05] VITALS: Ht 162.6 cm; Wt 63.6 kg
[~2020-06-05 05:08] MED LIST changes: -LISI-334 PO; +LISI20TA18 PO; +ONDA4TAB12 PO
[2020-06-05] MEDS ORDERED: DEXTROSE 50% 25 GM / 50ML DISP.SYRIN. IV ONE (05:47)
--- NOTE | 2020-06-05 05:53 | RAD ---
AP portable chest radiograph 06/05/2020 Clinical History: History of chest pain. History of cough and fever. An AP erect portable digital radiograph of the chest was obtained. Comparison study is dated 11/24/2018. The cardiac silhouette is normal in size. The thoracic aorta is minimally tortuous. No acute pulmonar y infiltrate is seen. No pleural effusion or pneumothorax is noted. Degenerative changes are seen inv olving the thoracic spine. Impression: No acute abnormality is seen. Electronically signed by: Dov Sandra MD (06/05/2020 5:51 AM) [id number]
--- NOTE | 2020-06-05 05:55 | PHYS DOC ---
Past Medical History Past Medical History: COPD, Pancreatitis Additional Past Medical Histor: ULCER,PRE-DM (PAWAN HESS MD) Past Surgical History: Colectomy, Additional Past Surgical Histo: Ablation (PAWAN HESS MD) Smoking Status: Current Every Day Smoker Alcohol Use: Sober Drug Use: None (PAWAN HESS MD) Adult General HPI HPI Patient is a 54 year old female with a known past medical history of diabetes presenting to the emergency department for new onset of altered mental status. According to the patient and her family patient has been acting confused for the last few hours. Noted that she has been having confusion as to where she is and difficulty speaking. When I asked the patient if she is use any alcohol or drugs she states that she is not sure but notes that she drinks almost every day and feels that she drinks "more than I should be." Patient is having difficulties providing any other significant history as she appears confused and states that she is having difficulty remembering what happened. Does currently complain of dizziness but denies any nausea, vomiting, fever, chills, chest pain or shortness of breath. Patient does not believe that she is fallen. (PAWAN HESS MD) Review of Systems Review of Systems Constitutional: Denies fever or chills [] Eyes: Denies change in visual acuity, redness, or eye pain [] HENT: Denies nasal congestion or sore throat [] Respiratory: Denies cough or shortness of breath [] Cardiovascular: No additional information not addressed in HPI [] GI: Denies abdominal pain, nausea, vomiting, bloody stools or diarrhea [] : Denies dysuria or hematuria [] Musculoskeletal: Denies back pain or joint pain [] Integument: Denies rash or skin lesions [] Neurologic: Denies headache, focal weakness or sensory changes [] Endocrine: Denies polyuria or polydipsia [] All other systems were reviewed and found to be within normal limits, except as documented in this note. (PAWAN HESS MD) Current Medications Current Medications Current Medications Medications (Trade) Dose Ordered Sig/Servando Start Time Stop Time Status Last Admin Dose Admin Dextrose (Dextrose 50%-Water Syringe) 25 gm STK-MED ONCE 06/05/20 05:47 06/05/20 05:47 DC Potassium Chloride (Klor-Con) 40 meq 1X ONCE 06/05/20 07:15 06/05/20 07:16 DC 06/05/20 07:47 40 MEQ Sodium Chloride 1,000 ml @ 1,000 mls/hr 1X ONCE 06/05/20 07:15 06/05/20 08:14 06/05/20 07:47 1,000 MLS/HR (NEHEMIAH ABREU DO) Allergies Allergies Allergies Coded Allergies Type Severity Reaction Last Updated Verified Monoamine Oxidase Inhibitors Allergy Severe Anaphylaxis 08/20/15 Yes Tricyclic Compounds Allergy Severe Anaphylaxis 08/20/15 Yes bupropion Allergy Severe Anaphylaxis 08/20/15 Yes paroxetine Allergy Severe Anaphylaxis 08/20/15 Yes sulfamethoxazole Allergy Severe Anaphylaxis 02/28/17 Yes trazodone Allergy Severe Anaphylaxis 08/20/15 Yes trimethoprim Allergy Severe Anaphylaxis 02/28/17 Yes venlafaxine HCl Allergy Severe Anaphylaxis 08/20/15 Yes (NEHEMIAH ABREU DO) Physical Exam Physical Exam Constitutional: Well developed, well nourished, no acute distress, non-toxic appearance. [] HENT: Normocephalic, atraumatic, bilateral external ears normal, oropharynx moist, no oral exudates, nose normal. [] Eyes: PERRLA, EOMI, conjunctiva normal, no discharge. [] Neck: Normal range of motion, no tenderness, supple, no stridor. [] Cardiovascular:Heart rate regular rhythm, no murmur [] Lungs & Thorax: Bilateral breath sounds clear to auscultation [] Abdomen: Bowel sounds normal, soft, no tenderness, no masses, no pulsatile masses. [] Skin: Warm, dry, no erythema, no rash. [] Back: No tenderness, no CVA tenderness. [] Extremities: No tenderness, no cyanosis, no clubbing, ROM intact, no edema. [] Neurologic: Alert and oriented X2, slurred speech, normal motor function, normal sensory function, no focal deficits noted. [] Psychologic: Affect normal, judgement normal, mood normal. [] (PAWAN HESS MD) Current Patient Data Vital Signs Vital Signs Date Time Temp Pulse Resp B/P (MAP) Pulse Ox O2 Delivery O2 Flow Rate FiO2 06/05/20 05:09 97.1 47 22 140/68 (92) 98 Room Air 97.1 (NEHEMIAH ABREU DO) Lab Values Laboratory Tests Test 06/05/20 05:20 06/05/20 05:40 06/05/20 05:48 06/05/20 06:15 Glucose (Fingerstick) 57 mg/dL (70-99) L 73 mg/dL (70-99) White Blood Count 3.6 x10^3/uL (4.0-11.0) L Red Blood Count 4.60 x10^6/uL (3.50-5.40) Hemoglobin 15.9 g/dL (12.0-15.5) H Hematocrit 47.5 % (36.0-47.0) H Mean Corpuscular Volume 103 fL (79-100) H Mean Corpuscular Hemoglobin 35 pg (25-35) Mean Corpuscular Hemoglobin Concent 34 g/dL (31-37) Red Cell Distribution Width 14.8 % (11.5-14.5) H Platelet Count 154 x10^3/uL (140-400) Neutrophils (%) (Auto) 41 % (31-73) Lymphocytes (%) (Auto) 48 % (24-48) Monocytes (%) (Auto) 9 % (0-9) Eosinophils (%) (Auto) 1 % (0-3) Basophils (%) (Auto) 1 % (0-3) Neutrophils # (Auto) 1.5 x10^3/uL (1.8-7.7) L Lymphocytes # (Auto) 1.7 x10^3/uL (1.0-4.8) Monocytes # (Auto) 0.3 x10^3/uL (0.0-1.1) Eosinophils # (Auto) 0.0 x10^3/uL (0.0-0.7) Basophils # (Auto) 0.0 x10^3/uL (0.0-0.2) Sodium Level 134 mmol/L (136-145) L Potassium Level 3.1 mmol/L (3.5-5.1) L Chloride Level 96 mmol/L (98-107) L Carbon Dioxide Level 25 mmol/L (21-32) Anion Gap 13 (6-14) Blood Urea Nitrogen 6 mg/dL (7-20) L Creatinine 0.5 mg/dL (0.6-1.0) L Estimated GFR (Cockcroft-Gault) 129.6 BUN/Creatinine Ratio 12 (6-20) Glucose Level 52 mg/dL (70-99) L Calcium Level 9.0 mg/dL (8.5-10.1) Magnesium Level 2.1 mg/dL (1.8-2.4) Total Bilirubin 0.6 mg/dL (0.2-1.0) Aspartate Amino Transferase (AST) 93 U/L (15-37) H Alanine Aminotransferase (ALT) 69 U/L (14-59) H Alkaline Phosphatase 168 U/L (46-116) H Creatine Kinase 69 U/L (26-192) Troponin I Quantitative < 0.017 ng/mL (0.000-0.055) RD-Qma-B-Type Natriuretic Peptide 241 pg/mL (0-124) H Total Protein 7.8 g/dL (6.4-8.2) Albumin 3.9 g/dL (3.4-5.0) Albumin/Globulin Ratio 1.0 (1.0-1.7) Ethyl Alcohol Level 135 mg/dL (0-10) H Urine Collection Type U cath Urine Color Yellow Urine Clarity Clear Urine pH 6.0 (<5.0-8.0) Urine Specific [place] <=1.005 (1.000-1.030) Urine Protein Negative mg/dL (NEG-TRACE) Urine Glucose (UA) Negative mg/dL (NEG) Urine Ketones (Stick) Negative mg/dL (NEG) Urine Blood Negative (NEG) Urine Nitrite Negative (NEG) Urine Bilirubin Negative (NEG) Urine Urobilinogen Dipstick 0.2 mg/dL (0.2 mg/dL) Urine Leukocyte Esterase Negative (NEG) Urine RBC 0 /HPF (0-2) Urine WBC 0 /HPF (0-4) Urine Squamous Epithelial Cells Few /LPF Urine Bacteria 0 /HPF (0-FEW) Urine Opiates Screen Neg (NEG) Urine Methadone Screen Neg (NEG) Urine Barbiturates Neg (NEG) Urine Phencyclidine Screen Neg (NEG) Urine Amphetamine/Methamphetamine Neg (NEG) Urine Benzodiazepines Screen Pos (NEG) Urine Cocaine Screen Neg (NEG) Urine Cannabinoids Screen Neg (NEG) Urine Ethyl Alcohol Pos (NEG) Test 06/05/20 07:13 Glucose (Fingerstick) 130 mg/dL (70-99) H Laboratory Tests 06/05/20 05:40 Laboratory Tests 06/05/20 05:40 (NEHEMIAH ABREU DO) EKG EKG [] (PAWAN HESS MD) EKG EKG was done 7:05 AM, heart rate of 53 bpm sinus rhythm, QT 526 MS, QTC 496 MS , prolonged QT interval, normal axis, no ST segment elevation. (NEHEMIAH ABREU DO) Radiology/Procedures Radiology/Procedures [] (PAWAN HESS MD) Course & Med Decision Making Course & Med Decision Making Pertinent Labs and Imaging studies reviewed. (See chart for details) 54-year-old female presenting the emergency department for nonspecific altered mental status is likely secondary to intoxication but at this time cannot rule out acute metabolic encephalopathy. In addition the patient was noted to be acutely hypoglycemic for EMS on arrival to the emergency department. Patient has been provided juice to help with her glucose. Will obtain full work-up and labs to make sure there is no other significant underlying etiology. (PAWAN HESS MD) Course & Med Decision Making This physician took over care of this patient at [address] Pawan Hess, discussed with patient's , patient has history of diabetic, she is taking 10 units Lantus at night, she is also an alcoholic. She did drink alcohol last night, ate dinner last night, and took her Lantus as usual. This morning she woke up, she feels like she had an anxiety attack, she was sweating, confused, slurred her words, so she took a dose of her anxiety medication, her was helping her to the bathroom, but she was too weak to walk, her daughter did check her blood sugar and it was 35, she was given some juice at home and EMS was called to take her here for evaluation. Patient denies any head or neck injury. Patient denies suicidal ideation, denies homicidal ideation. Upon arrival to ER, her blood sugar was 57, patient was given D50, and she was given juices to drink, her blood sugar improved, patient felt much better. The combination of alcohol and Lantus did drop her blood sugar, caused the AMS today. Patient was advised to reduce the Lantus dose to 7 units at night while she drinks alcohol, she will need to follow-up with her family physician for reevaluation this week., Her will take her home. Her potassium level was low today, may contribute to the prolonged QT on EKG today. Patient was given potassium supplement here. She will need to follow up with her doctor to have it rechecked again (NEHEMIAH ABREU DO) Dragon Disclaimer Dragon Disclaimer This electronic medical record was generated, in whole or in part, using a voice recognition dictation system. (PAWAN HESS MD) Departure Departure Impression: Primary Impression: Altered mental status Additional Impressions: Alcohol abuse Hypoglycemia Hypokalemia Disposition: 01 DC HOME SELF CARE/HOMELESS Condition: IMPROVED Referrals: LUPE THOMASON APRN (PCP) Please follow up with your primary care provider this week for reevaluation. Reduce your LANTUS dose to 7 units at night if you are drinking alcohol. Patient Instructions: Alcohol Intoxication, Hypoglycemia (Low Blood Sugar), Hypokalemia Problem Qualifiers PAWAN HESS MD Jun 05, 2020 05:55 NEHEMIAH ABREU DO Jun 05, 2020 08:10
[2020-06-05 06:13] LABS: BASO % 1 % (0-3); EOS % 1 % (0-3); HEMATOCRIT 47.5 % (36.0-47.0); HEMOGLOBIN 15.9 g/dL (12.0-15.5); LYMPH # 1.7 x10^3/uL (1.0-4.8); LYMPH % 48 % (24-48); MEAN CORPUSCULAR HEMOGLOBIN 35 pg (25-35); MEAN CORPUSCULAR HGB CONC 34 g/dL (31-37); MEAN CORPUSCULAR VOLUME 103 fL (79-100); MONO # 0.3 x10^3/uL (0.0-1.1); MONO % 9 % (0-9); NEUT # 1.5 x10^3/uL (1.8-7.7); NEUT % 41 % (31-73); PLATELET COUNT 154 x10^3/uL (140-400); RED CELL DISTRIBUTION WIDTH 14.8 % (11.5-14.5); WHITE BLOOD COUNT 3.6 x10^3/uL (4.0-11.0)
[2020-06-05 06:18] LABS: CREATININE 0.5 mg/dL (0.6-1.0); GFR 129.6; POTASSIUM 3.1 mmol/L (3.5-5.1)
[2020-06-05 06:24] LABS: ALBUMIN 3.9 g/dL (3.4-5.0); MAGNESIUM 2.1 mg/dL (1.8-2.4); TOTAL BILIRUBIN 0.6 mg/dL (0.2-1.0); TOTAL PROTEIN 7.8 g/dL (6.4-8.2)
[2020-06-05 06:53] LABS: BILIRUBIN,URINE NEGATIVE (NEG); CLARITY,URINE CLEAR; COLOR,URINE YELLOW; NITRITE,URINE NEGATIVE (NEG); PROTEIN,URINE NEGATIVE (NEG-TRACE); UROBILINOGEN,URINE 0.2 mg/dL (0.2 mg/dL)
[2020-06-05] MEDS ORDERED: IV NORMAL SALINE 1000ML BAG 1,000 ML IV ONE (07:15)
[2020-06-05] MEDS ORDERED: POTASSIUM CHLORIDE 10 MEQ TABLET.ER. PO ONE (07:15)
[2020-06-05 07:21] LABS: BACTERIA,URINE 0 /HPF (0-FEW); RBC,URINE 0 /HPF (0-2); WBC,URINE 0 /HPF (0-4)
[2020-06-05 07:31] LABS: BARBITURATES NEG (NEG); BENZODIAZEPINES POS (NEG); CANNABINOIDS NEG (NEG); COCAINE NEG (NEG); METHADONE NEG (NEG); OPIATES NEG (NEG); PHENCYCLIDINE NEG (NEG)
[2020-06-05 07:37] LABS: AMPHETAMINE/METHAMPHETAMINE NEG (NEG)
--- NOTE | 2020-06-05 08:59 | EKG ---
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
[2020-06-05 09:00] VITALS: BP 128/61
== END 2020-06-05 09:48 | disposition home or self-care (01) ==
LOC: ER 05:08
DX: R41.82 Altered mental status, unspecified (principal); F10.10 Alcohol abuse, uncomplicated; E11.649 Type 2 diabetes mellitus with hypoglycemia without coma; E87.6 Hypokalemia; R42 Dizziness and giddiness; J44.9 Chronic obstructive pulmonary disease, unspecified; K86.1 Other chronic pancreatitis; F17.200 Nicotine dependence, unspecified, uncomplicated; Z90.89 Acquired absence of other organs; Z98.890 Other specified postprocedural states; Z88.2 Allergy status to sulfonamides; Z88.8 Allergy status to other drugs, medicaments and biological substances; Z88.6 Allergy status to analgesic agent; Z88.0 Allergy status to penicillin
CPT/HCPCS: 36415; 71045; 80053; 80307; 81001; 82550; 82962; 83735; 83880; 84484; 85025; 93005; 96360; 96361; 99285; G0480; J7030

== ENCOUNTER → 2020-09-09 | Outpatient (CLI) | payer OTHER ==
--- NOTE | 2020-09-09 14:20 | RAD ---
EXAM: Lumbar spine, 2 views. HISTORY: Pain. COMPARISON: None. FINDINGS: 2 views of the lumbar spine are obtained. There is mild thoracolumbar scoliosis. There is l umbar hyperlordosis. There is grade 1 anterolisthesis of L5 on S1, measuring 4 mm. There is minimal a nterior predominant endplate remodeling. There are pancreatic calcifications due to chronic pancreati tis. IMPRESSION: 1. Mild thoracolumbar scoliosis, lumbar hyperlordosis and grade 1 anterolisthesis of L5 on S1. 2. Mild multilevel endplate remodeling. Electronically signed by: Nayla Ivey MD (09/09/2020 2:17 PM) [id number]
== END ==
LOC: RAD 13:49
PROVIDERS: ATTEND Family Medicine
DX: M43.17 Spondylolisthesis, lumbosacral region (principal); M41.85 Other forms of scoliosis, thoracolumbar region
CPT/HCPCS: 72100